=== PATIENT | male | born 1960 | race American Indian/Alaskan Native ===

== ENCOUNTER 2023-08-09 17:36 | Emergency (ER) | payer MEDICAID, SELFPAY ==
[2023-08-09 17:42] VITALS: BP 122/72; PULSE 74; RESP 16; TEMP 36.6; O2SAT 96; BMI 26.7
--- NOTE | 2023-08-09 17:59 | ED_ITS ---
HPI - General Adult General Chief complaint: General Medical Stated complaint: pain in feet and shoulder Time Seen by Provider: 08/09/23 18:17 Source: patient and breakfast supervisor Mode of arrival: ambulatory Limitations: language barrier History of Present Illness HPI narrative: 63 yo male with history of arthritis, IDDM, HTN, HLD here with pain/swelling in bilateral feet, pain in left shoulder pain Seen at [facility] ER 07/31 and given prednisone for 5 days which helped with his symptoms. Has been unable to get hold of his primary care doctor. Denies any injury or trauma. Patient denies any muscle aches, redness, numbness, tingling of the extremities. Patient denies any fevers or chills. Related Data Previous Rx's Medication Instructions Recorded diclofenac sodium 1 % topical gel 4 g topical QID #100 grams 08/09/23 (Voltaren Arthritis Pain) prednisone 20 mg tablet 40 mg (2 x 20 mg) PO DAILY #10 tabs 08/09/23 Allergies Allergy/AdvReac Type Severity Reaction Status Date / Time No Known Allergies Allergy Verified 08/09/23 17:53 Review of Systems Review of Systems: Yes all other systems are reviewed and are negative Constitutional: Constitutional: Reports no additional constitutional complaints, Denies body ache(s), Denies chills, Denies fever(s), Denies headache(s) and Denies weakness Eyes: Eyes: Reports no additional eye complaints and Denies change in vision ENT: Reports system reviewed and no additional complaints, except as documented, Denies dizziness, Denies headache(s), Denies nasal congestion, Denies nasal discharge and Denies neck pain Cardiovascular: Cardiovascular: Reports no additional cardiovascular complaint s, Denies chest pain, Denies leg edema and Denies dyspnea Respiratory: Respiratory: Reports no additional respiratory complaints, Denies cough and Denies dyspnea Gastrointestinal: Gastrointestinal: Reports no additional gastrointestinal complaints, Denies abdominal pain, Denies diarrhea, Denies nausea and Denies vomiting Genitourinary: Genitourinary: Denies urinary incontinence Musculoskeletal: Musculoskeletal: Reports no additional musculoskeletal complaints, Denies back pain, Reports arthralgias, Reports joint swelling, Denies limited range of motion, Denies neck pain, Denies numbness and Denies tingling Integumentary/Breasts: Skin/Breast: Reports system reviewed and no additional complaints, except as docu and Denies rash Neurologic: Reports system reviewed and no additional complaints, except as documented, Denies Abnormal speech present, Denies dizziness, Denies headache(s), Denies numbness, Denies tingling and Denies weakness PMFSH Past Medical History Attestation statement: The following information was validated with the patient. Source: old records reviewed and nursing notes reviewed Social History Social History Advance Directives: No Advance Directives Information Provided: No Physical Exam ED Vital Signs: Vital Signs - 24 hr 08/09/23 17:42 Temperature 98 F Pulse Rate 74 Respiratory Rate 16 Blood Pressure 122/72 Pulse Oximetry 96 Oxygen Delivery Method Room Air BMI result Body Mass Index 26.7 Const General: cooperative, healthy appearing, comfortable and no acute distress Orientation/consciousness: patient oriented x3 Limitations: no limitations HENMT Head: Yes normal to inspection Ears: hearing grossly normal bilaterally General nose exam: Normal external nose present Face and sinus: Yes normal facial exam Mouth: Normal oral and palatal mucosa present Throat: Yes posterior oropharynx normal Eyes General: appearance normal, both eyes and all related structures Pupils: Equal, round and reactive pupils present Neck Neck: Yes normal visual inspection Chest Chest palpation & inspection: normal inspection of the chest Resp Effort & Inspection: normal respiratory effort Auscultation: clear to auscultation bilaterally Cardio Rate: regular rate Rhythm: regular rhythm Peripheral pulses: Peripheral pulses 2+ throughout GI Inspection: Yes normal to inspection Palpation (GI): Soft to palpation and nontender Auscultation: normal bowel sounds Back/Spine/Pelvis Thoracic/Lumbar Spine: thoracic and lumbar spine normal to inspection Skin General skin exam: no rashes or lesions noted Neuro General: patient oriented x3, no focal motor deficits and normal sensation to monofilament Cranial nerves: Yes Equal, round and reactive pupils present Cognition (Neuro): normal cognition Speech: No Abnormal speech present Gait exam (Neuro): Normal gait present Motor exam (neuro): 5/5 motor strength present throughout Extrem Other: Mild swelling noted to b/l ankles with FROM. No erythema/warmth Mild TTP to left shoulder with FROM. No erythema/warmth General: Yes normal to inspection Medical Decision Making Medical Decision Making MDM Narrative: 63 yo male with history of arthritis, IDDM, HTN, HLD here with pain/swelling in bilateral feet, pain in left shoulder pain Seen at [facility] ER 07/31 and given prednisone for 5 days which helped with his symptoms. Has been unable to get hold of his primary care doctor. Denies any injury or trauma. Patient denies any muscle aches, redness, numbness, tingling of the extremities. Patient denies any fevers or chills. Mild swelling noted to b/l ankles with FROM. No erythema/warmth Mild TTP to left shoulder with FROM. No erythema/warmth Likely arthritis flare. Patient given several more days of prednisone but I strongly encouraged him to follow up with primary care doctor for further management of his arthritis. Reviewed worrisome signs and symptoms when to return to the emergency room. Comfortable plan for discharge home. Differential Diagnosis Differential Diagnoses: The differential diagnosis associated with the presentation includes Low concern for fracture, strain, sprain, dislocation with no reports of injury Low concern for septic joint with full range of motion No concern for cellulitis, gout Admission/Observation Consideration of admission/observation: Escalation of care including admission/observation considered No systemic signs or symptoms concerning for infection necessitating labs, further workup with advanced imaging and/or admission Tests considered The following testing was considered but not selected: Patient nontoxic, afebrile, low concern for septic joint requiring lab Prescription Management I considered prescription management with: Pain Medication Chronic Conditions Patient?s care impacted by: Diabetes Discharge Plan Discharge Clinical Impression: Osteoarthritis Patient Disposition: Home, Self-Care Instructions: Osteoarthritis (ED) Additional Instructions: Call your PCP Friday to follow-up. Llame a gerard PCP el para realizar un seguimiento. Prescriptions: New prednisone 20 mg tablet 40 mg PO DAILY Qty: 10 0RF diclofenac sodium [Voltaren Arthritis Pain] 1 % gel 4 g topical QID Qty: 100 0RF Rx Instructions: apply to single knee, ankle, foot; for foot includes sole/toes/top of foot Referrals: Physician,Unknown J [Primary Care Provider] - 1 week Interventions: ED Discharge Assessment Last Done: 08/09/23 18:25 Print Language: Greek
--- OUTSIDE RECORDS SUMMARY | 2023-08-09 18:27 | XMS_ITS | Continuity of Care Document ---
Author Name Unknown Organization [facility] Address [address] [place] [address]- Care Team Providers Care Hose Tender Name Role Phone Manpreet Cohen MD Primary Care Physician Encounter [facility] Date(s): 06/13/20 - 07/13/20 [facility] [address] [place] [address]- [facility] Attending Physician: Maren Chew Admitting Physician: AdmtrMaren Referring Physician: AdmtrMaren Allergies, Adverse Reactions, Alerts Substance Reaction Severity Status NKA Active Immunizations Given and Recorded Vaccine Date Status Refusal Reason tetanus/diphtheria/pertussis, acel(Tdap) 03/26/19 Given pneumococcal 23-valent vaccine 03/26/19 Given Medications atorvastatin 20 mg oral tablet 1 tablet = 20 mg, By Mouth, Daily, Serbian, # 90 tablet, 4 Refills, Maintenance, 06/13/20 14:25:00 EDT, Tablet, [facility], 180, cm, 06/13/20 14:06:00 EDT, Height, 88.9, kg, 07/06/18 20:39:00 EDT, Dry Weight Start Date: 06/13/20 Stop Date: 09/06/21 Status: Ordered folic acid 1 mg oral tablet 1 mg, 1, tablet, By Mouth, Daily, Take daily <LAO>, # 30 tablet, Refills 5, Tot. Refills 5, Maintenance, 03/28/20 14:39:00 EDT, Route to Pharmacy Electronically, [facility],180, cm, 12/01/19 9:06:00 EST, Height, 88.9, kg, 07/06/18... Start Date: 03/28/20 Status: Ordered Freestyle Lite Lancets See Instructions, # 100 each, Refills 5, Tot. Refills 5, Maintenance, Use to test post meal blood sugar 3 times a day Dx: E11.65, 01/06/20 18:39:00 EDT, Compound, 180, cm, 12/01/19 9:06:00 EST, Height, 88.9, kg, 07/06/18 20:39:00 EDT, Dry Weight Start Date: 01/06/20 Stop Date: 07/04/20 Status: Ordered Freestyle Lite Test Strips See Instructions, # 100 each, Refills 11, Tot. Refills 11, Maintenance, Use to test blood sugar after meal 3 times a day Dx: E11.65, 10/28/19 11:35:00 EST, Compound, 180, cm, 10/25/19 14:25:00 EST, Height, 88.9, kg, 07/06/18 20:39:00 EDT, Dry Weight Start Date: 10/28/19 Stop Date: 10/22/20 Status: Ordered insulin glargine 100 u/ml subcutaneous solution = 16 units, Subcutaneous Injection, Daily at bedtime, please label in frisian, # 10 mL, 11 Refills,Maintenance, 06/13/20 14:28:00 EDT, Solution, [facility], please label in frisian, 180, cm, 06/13/20 14:06:00 EDT, Height, 88.9, kg, 09... Start Date: 06/13/20 Status: Ordered Insulin Syringe, BD Ultra-Fine 0.5 cc 31 G x 8 mm (5/16in) See Instructions, # 40 each, Refills 11, Tot. Refills 11, Maintenance, Use to inject insulin once daily Dx: E11.65, 12/22/19 8:59:00 EST, Compound, 180, cm, 12/01/19 9:06:00 EST, Height, 88.9, kg, 07/06/18 20:39:00 EDT, Dry Weight Start Date: 12/22/19 Status: Ordered metFORMIN 1000 mg oral tablet 1 tablet = 1,000 mg, By Mouth, 2 times a day, with meals, Serbian label, dose increase, # 180 tablet, 4 Refills, Maintenance, 06/13/20 14:27:00 EDT[facility], [facility], 06/13/20 14:06:00 EDT, Height, 88.9, kg, 07/06/18 20:39:0... Start Date: 06/13/20 Stop Date: 09/06/21 Status: Ordered methotrexate 2.5 mg oral tablet See Instructions, CONOR 6 TABLETAS CADA SEMANA CADA MIERCOLES, # 24 tablet, 9 Refills, Soft Stop, 01/26/20 9:28:00 EDT[facility], cm, 12/01/19 9:06:00 EST, Height, 88.9, kg, 07/06/18 20:39:00 EDT, Dry Weight Start Date: 01/26/20 Status: Ordered naproxen 500 mg oral tablet 1 tablet = 500 mg, By Mouth, 2 times a day, with food, prn pain, take with food, # 60 tablet, 0 Refills, Maintenance, 06/13/20 14:29:00 EDT, [facility], cm, 06/13/20 14:06:00 EDT, Height, 88.9, kg, 07/06/18 20:39:00 EDT, D... 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
--- OUTSIDE RECORDS SUMMARY | 2023-08-09 18:27 | XMS_ITS | Continuity of Care Document ---
Author Name Unknown Organization [facility] Address [address] [place] [address]- Care Team Providers Care Brim Buster Name Role Phone Noel CHESTER, Manpreet Primary Care Physician [phone] [place] [facility] [place] 12/06[place]20 - 01/10/21 [facility] [address] [place] [address]- Attending Physician: Beka Zapien MD Admitting Physician: Beka Zapien MD Allergies, Adverse Reactions, Alerts Substance Reaction Severity Status NKA Active Immunizations Given and Recorded Vaccine Date Status Refusal Reason tetanus/diphtheria/pertussis, acel(Tdap) 03/26/19 Given pneumococcal 23-valent vaccine 03/26/19 Given Medications atorvastatin 20 mg oral tablet 1 tablet = 20 mg, By Mouth, Daily, Tajik, # 90 tablet, 4 Refills, Maintenance, 06/13/20 14:25:00 EDT, [facility], [facility], 06/13/20 14:06:00 EDT, Height, 88.9, kg, 07/06/18 20:39:00 EDT, Dry Weight Start Date: 06/13/20 Stop Date: 09/06/21 Status: Ordered BD 0.5ML [id number] SYR 634037 31GX5/16 SYRG BD 0.5ML [id number] SYR 111244 31GX5/16 SYRG, See Instructions, # 30 Unknown, 11 Refills, Maintenance, [facility], 180, cm, 06/13/20 14:06:00 EDT, Height Start Date: 12/09/20 Status: Ordered folic acid 1 mg oral tablet 1 mg, 1, tablet, By Mouth, Daily, Take daily <JORDANIAN>, # 30 tablet, Refills 5, Tot. Refills 5, Maintenance, 09/27/20 16:05:00 EST, Route to Pharmacy Electronically, [facility],180, cm, 06/13/20 14:06:00 EDT, Height Start Date: 09/27/20 Status: Ordered Freestyle Lite Lancets See Instructions, [...] meal 3 times a day Dx: E11.65, 11/08/20 16:30:00 EST, Compound, 180, cm, 06/13/20 14:06:00 EDT, Height Start Date: 11/08/20 Stop Date: 11/03/21 Status: Ordered insulin glargine 100 u/ml subcutaneous solution = 20 units, Subcutaneous Injection, Daily at bedtime, please label in welsh, # 10 mL, 11 Refills,Maintenance, 09/12/20 16:20:00 EST, Solution, [facility], please label in welsh, 180, cm, 06/13/20 14:06:00 EDT, Height Start Date: 09/12/20 Status: Ordered Insulin Syringe, BD Ultra-Fine 0.5 cc 31 G x 8 mm (5/16in) See Instructions, # 30 each, Refills 11, Tot. Refills 11, Maintenance, Use to inject insulin once daily Dx: E11.65, 12/11/20 11:21:00 EST, Compound, 180, cm, 06/13/20 14:06:00 EDT, Height Start Date: 12/11/20 Status: Ordered metFORMIN 1000 mg oral tablet 1 tablet = 1,000 mg, By Mouth, 2 times a day, with meals, Tajik label, dose increase, # 180 tablet, 4 Refills, Maintenance, 06/13/20 14:27:00 EDT, Tablet[facility], cm, 06/13/20 14:06:00 EDT, Height, 88.9, kg, 07/06/18 20:39:0... Start Date: 06/13/20 Stop Date: 09/06/21 Status: Ordered methotrexate 2.5 mg oral tablet See Instructions, CONOR 6 TABLETAS CADA SEMANA CADA MIERCOLES, # 24 tablet, 9 Refills, Soft Stop, 11/09/20 19:11:00 EST, [facility] 180, cm, 06/13/20 14:06:00 EDT, Height Start Date: 11/09/20 Status: Ordered naproxen 500 mg oral tablet See Instructions, CONOR 1 TABLETA POR LA BOCA DOS VECES AL CONTRERAS CUANDO SEA NECESARIO PARA EL DOLOR CON COMIDA, # 60 tablet, 0 Refills, Acute, [facility], 180, cm, 06/13/20 14:06:00 EDT, Height Start Date: 12/09/20 Status: Ordered omeprazole 40 mg oral enteric coated capsule 1 capsule = 40 mg, By Mouth, Daily, # 30 capsule, 2 Refills, Maintenance, 08/09/20 11:18:00 EDT, [facility]CCapsule, [facility], cm, 06/13/20 14:06:00 EDT, Height, Dry Weight Start Date: 08/09/20 Status: Ordered omeprazole 40 mg oral enteric coated capsule See Instructions, CONOR 1 CAPSULA POR LA BOCA CADA CONTRERAS, # 30 capsule, 2 Refills, Maintenance, [facility], 180, cm, 06/13/20 14:06:00 EDT, Height Start Date: 10/17/20 Status: Ordered Trulicity Pen 0.75 mg/0.5 mL subcutaneous solution 0.5 mL = 0.75 mg, Subcutaneous Injection, Every week, rotate injection sites, # 2 mL, 5 Refills, Maintenance, 12/11/20 15:58:00 EST, Solution, [facility] Partial fill upon patient request if the prescription is for a schedule II opioi... Start Date: 12/11/20 Status: Ordered Tylenol 8 HR Arthritis Pain 650 mg oral tablet, extended release 2 tablet = 1,300 mg, By Mouth, 2 times a day, PRN Pain , Moderate, # 50 tablet, 1 Refills, Maintenance, 12/13/20 11:44:00 EST, ER Tablet[facility], [facility] fill upon patient requestif the prescription is for a schedule II opioid marvin... Start Date: 12/13/20 Status: Ordered Problem List Condition Effective Dates [...]
--- OUTSIDE RECORDS SUMMARY | 2023-08-09 18:27 | XMS_ITS | Continuity of Care Document ---
Author Name Unknown Organization [facility] Address [address] [place] [address]- Care Team Providers Care Ediscovery Project Manager Name Role Phone Manpreet Cohen MD Primary Care Physician [phone] Encounter [facility] [place] Date(s): 05/08/21 - 06/07/21 [facility] [address] [place] [address]- Allergies, Adverse Reactions, Alerts Substance Reaction Severity Status NKA Active Immunizations Given and Recorded Vaccine Date Status Refusal Reason SARS-CoV-2 (COVID-19) mRNA BNT-162b2 vac 03/03/21 Recorded SARS-CoV-2 (COVID-19) mRNA BNT-162b2 vac 02/11/21 Recorded tetanus/diphtheria/pertussis, acel(Tdap) 03/26/19 Given pneumococcal 23-valent vaccine 03/26/19 Given Medications atorvastatin 20 mg oral tablet 1 tablet = 20 mg, By Mouth, Daily, Romansh, # 90 tablet, 4 Refills, Maintenance, 06/13/20 14:25:00 EDT, Tablet, [facility], [facility], cm, 06/13/20 14:06:00 EDT, Height, 88.9, kg, 07/06/18 20:39:00 EDT, Dry Weight Start Date: 06/13/20 Stop Date: 09/06/21 Status: Ordered BD 0.5ML [id number] SYR [id number] 31GX5/16 SYRG BD 0.5ML [id number] SYR 606714 31GX5/16 SYRG, See Instructions, # 30 Unknown, 11 Refills, Maintenance, [facility], 180, cm, 06/13/20 14:06:00 EDT, Height Start Date: 12/09/20 Status: Ordered folic acid 1 mg oral tablet 1 mg, 1, tablet, By Mouth, Daily, Take daily <INDIAN>, # 90 tablet, Refills 3, Tot. Refills 3, Maintenance, 03/27/21 14:34:00 EDT, Route to Pharmacy Electronically, [facility]180, cm, 03/27/21 14:07:00 EDT, Height Start Date: 03/27/21 Stop Date: 03/22/22 Status: Ordered Freestyle Lite Lancets See Instructions, [...] Strips See Instructions, # 100 each, Refills 5, Tot. Refills 5, Maintenance, Use to test blood sugar aftermeal 3 times a day Dx: E11.65, 11/03/21 16:30:00 EST, Compound, 180, cm, 06/13/20 14:06:00 EDT, Height Start Date: 11/03/21 Stop Date: 05/02/22 Status: Ordered Freestyle Lite Test Strips See Instructions, for 30 days, # 100 each, Refills 11, Tot. Refills 11, Hard Stop 11/03/21 16:30:00EST, Use to test blood sugar after meal 3 times a day Dx: E11.65, 11/08/20 16:30:00 EST, Compound, 180, cm, 06/13/20 14:06:00 EDT, Height Start Date: 11/08/20 Stop Date: 11/03/21 Status: Ordered insulin glargine 100 u/ml subcutaneous solution = 20 units, Subcutaneous Injection, Daily at bedtime, please label in qatari, # 10 mL, 11 Refills,Maintenance, 09/12/20 16:20:00 EST, Solution, [facility]., please label in qatari, 180, cm, 06/13/20 14:06:00 EDT, Height Start [...] Mouth, 2 times a day, with meals, Romansh label, dose increase, # 180 tablet, 4 Refills, Maintenance, 06/13/20 14:27:00 EDT, Tablet, [facility], 180, cm, 06/13/20 14:06:00 EDT, Height, 88.9, kg, 07/06/18 20:39:0... Start Date: 06/13/20 Stop Date: 09/06/21 Status: Ordered methotrexate 2.5 mg oral tablet See Instructions, CONOR 6 TABLETAS CADA SEMANA CADA MIERCOLES, # 24 tablet, 9 Refills, Soft Stop, 11/09/20 19:11:00 EST, [facility]., 180, cm, 06/13/20 14:06:00 EDT, Height Start Date: 11/09/20 Status: Ordered omeprazole 40 mg oral enteric coated capsule See Instructions, CONOR 1 CAPSULA POR LA BOCA CADA CONTRERAS, # 30 capsule, 2 Refills, 03/27/21 14:38:00 EDT, [facility]., 180, cm, 03/27/21 14:07:00 EDT, Height Start Date: 03/27/21 Status: Ordered predniSONE 5 mg oral tablet See Instructions, Take 2 tablets by mouth BID x 7 days, then 2 tabs qam and 1 tab qpm x 7 days, then 1 tab BID x 7 days, then 1 tab daily x 7 days., # 70 tablet, 0 Refills, Maintenance, 02/20/21 9:09:00 EDT, [facility], Label in Spanis... Start Date: 02/20/21 Status: Ordered predniSONE 5 mg oral tablet 1 tablet = 5 mg, By Mouth, Daily, Romansh, # 30 tablet, 0 Refills, Maintenance, 03/27/21 14:34:00 EDT, [facility], Partial fill upon patient request if the prescription is for a schedule II opioid drug., 180, cm, 03/27/21 14:07:00 EDT,... Start Date: 03/27/21 Status: Ordered predniSONE 5 mg oral tablet 1 tablet = 5 mg, By Mouth, Daily, with food or milk, # 30 tablet, 1 Refills, Maintenance, 05/18/21 17:14:00 EDT, [facility]., Partial fill upon patient request if the prescription is for a schedule II opioid drug., 180, cm, 03/27/21 14:... Start Date: 05/18/21 Status: Ordered Trulicity Pen 0.75 mg/0.5 mL subcutaneous solution 0.5 mL = 0.75 mg, Subcutaneous Injection, Every week, rotate injection sites, # 2 mL, 5 Refills, Maintenance, 12/11/20 15:58:00 EST, Solution, [facility], Partial fill upon patient request if the prescription is for a schedule II opioi... Start Date: 12/11/20 Status: Ordered Tylenol 8 HR Arthritis Pain 650 mg oral tablet, extended release 2 tablet = 1,300 mg, By Mouth, 2 times a day, PRN Pain , Moderate, # 50 tablet, 5 Refills, Maintenance, 02/08/21 10:19:00 EDT, ER Tablet, [facility]., Partial fill upon patient requestif the prescription is for a schedule II opioid marvin... Start Date: 02/08/21 Status: Ordered Problem List Condition Effective Dates [...]
--- OUTSIDE RECORDS SUMMARY | 2023-08-09 18:27 | XMS_ITS | Continuity of Care Document ---
Author Name Unknown Organization [facility] Address [address] [place] [id number]- Care Team Providers Care Resume Writer Name Role Phone Manpreet Cohen MD Primary Care Physician Encounter [facility] Date(s): 12/02/19 - 01/07/[address] [address]- [facility] Attending Physician: Juan Daniel Mcfadden MD Admitting Physician: Bogdan CHESTER, Juan Daniel Referring Physician: Bogdan CHESTER, Juan Daniel Allergies, Adverse Reactions, Alerts Substance Reaction Severity Status NKA Active Immunizations Given and Recorded Vaccine Date Status Refusal Reason tetanus/diphtheria/pertussis, acel(Tdap) 03/26/19 Given pneumococcal 23-valent vaccine 03/26/19 Given Medications atorvastatin 20 mg oral tablet 1 tablet = 20 mg, By Mouth, Daily, # 30 tablet, 3 Refills, Maintenance, 10/25/19 15:06:00 EST, Tablet, [facility] 180, cm, 10/25/19 14:25:00 EST, Height, 88.9, kg, 07/06/18 20:39:00 EDT, Dry Weight Start Date: 10/25/19 Status: Ordered Elbow Support Band Elbow Support Band, See Instructions, # 1 each, Refills 0, Tot. Refills 0, Maintenance, Diagnosis: Medial Epicondilitis ICD code: M77. 00, 11/24/19 15:02:00 EST, Compound Start Date: 11/24/19 Status: Ordered folic acid 1 mg oral tablet 1 mg, 1, tablet, By Mouth, Daily, Take daily <ISRAELI>, # 30 tablet, Refills 5, Tot. Refills 5, Maintenance, 10/05/19 15:54:56 EST, Route to Pharmacy Electronically, [id number], [facility], 180, cm, 03/26/19 9... Start Date: 10/05/19 Status: Ordered Freestyle Lite Lancets See Instructions, [...] Injection, Daily at bedtime, please label in mauritanian, # 10 mL, 11 Refills,Maintenance, 03/26/19 9:42:30 EDT, Solution, please label in mauritanian Start Date: 03/26/19 Status: Ordered Insulin Syringe, BD Ultra-Fine 0.5 cc 31 G x 8 mm (5/16in) See Instructions, # 40 each, Refills 11, Tot. Refills 11, Maintenance, Use to inject insulin once daily Dx: E11.65, 12/22/19 8:59:00 EST, Compound, 180, cm, 12/01/19 9:06:00 EST, Height, 88.9, kg, 07/06/18 20:39:00 EDT, Dry Weight Start Date: 12/22/19 Status: Ordered lidocaine-prilocaine 2.5%-2.5% topical cream 1 application, Topically, Once, # 30 Gm, 1 Refills, Soft Stop, 10/25/19 15:11:00 EST, Cream, [facility] 1 application Topically Once, 180, cm, 10/25/19 14:25:00 EST, Height, 88.9, kg, 07/06/18 20:39:00 EDT, Dry Weight Start Date: 10/25/19 Status: Ordered metFORMIN 500 mg oral tablet 1 tablet = 500 mg, By Mouth, 2 times a day, with meals, Swedish, # 60 tablet, 11 Refills, Maintenance, 03/26/19 9:42:59 EDT, Tablet Start Date: 03/26/19 Status: Ordered methotrexate 2.5 mg oral tablet See Instructions, CONOR 6 TABLETAS CADA SEMANA CADA MIERCOLES, # 24 tablet, 3 Refills, Soft Stop, 10/06/19 14:39:08 EST, 180, cm, 03/26/19 9:28:20 EDT, Height, 88.9, kg, 07/06/18 20:39:19 EDT, Dry Weight Start Date: 10/06/19 Status: Ordered naproxen 500 mg oral tablet 1 tablet = 500 mg, By Mouth, 2 times a day, PRN for pain, # 20 tablet, 1 Refills, Maintenance, 05/20/19 10:51:34 EDT, Tablet Start Date: 05/20/19 Status: Ordered naproxen 500 mg oral tablet See Instructions, COONR 1 TABLETA POR LA BOCA DOS VECES AL CONTRERAS CUANDO SEA NECESARIO PARA EL DOLOR, # 20 tablet, 1 Refills, Soft Stop, 10/06/19 14:39:00 EST, 180, cm, 03/26/19 9:28:20 EDT, Height, 88.9, kg, 07/06/18 20:39:19 EDT, Dry Weight Start Date: 10/06/19 Status: Ordered naproxen 500 mg oral tablet 1 tablet = 500 mg, By Mouth, 2 times a day, PRN for pain, # 20 tablet, 1 Refills, Maintenance, 01/13/19 16:27:29 EDT, Tablet, resent from rx not recieevd from this morning Start Date: 01/13/19 Status: Ordered omeprazole 40 mg oral enteric coated capsule 1 capsule = 40 mg, By Mouth, Daily, # 30 capsule, 2 Refills, Maintenance, 11/01/19 11:54:00 EST, ECCapsule, [facility] 180, cm, 10/25/19 14:25:00 EST, Height, 88.9, kg, 07/06/18 20:39:00 EDT, Dry Weight Start Date: 11/01/19 Status: Ordered predniSONE 5 mg oral tablet 1 tablet = 5 mg, By Mouth, Daily, instructions in mauritanian, # 30 tablet, 0 Refills, Maintenance, 09/13/19 7:20:29 EST, Tablet Start Date: 09/13/19 Status: Ordered Right Elbow Band Right Elbow Band, See Instructions, # 1 each, Refills 0, Tot. Refills 0, Maintenance, Right Elbow Band to be utilized daily, 12/01/19 10:49:00 EST, Compound Start Date: 12/01/19 Status: Ordered Right Elbow Band Right Elbow Band, See Instructions, # 1 each, Refills 0, Tot. Refills 0, Maintenance, Right Elbow Band to be utilized daily Dx: Epicondylitis M77.10, 12/01/19 10:52:00 EST, Compound Start Date: 12/01/19 Status: Ordered Problem List Condition Effective Dates [...]
--- OUTSIDE RECORDS SUMMARY | 2023-08-09 18:27 | XMS_ITS | Continuity of Care Document ---
Author Name Unknown Organization [facility] ter Address [address] [place] [address]- Care Team Providers Care Mechanical Systems Control Engineer Name Role Phone Manpreet Cohen MD Primary Care Physician [phone] Encounter [facility] Date(s): 12/01/19 - 12/01/[address] [address]- [facility] Attending Physician: Not on Staff, Attending MD Allergies, Adverse Reactions, Alerts Substance Reaction Severity Status NKA Active Immunizations Given and Recorded Vaccine Date Status Refusal Reason tetanus/diphtheria/pertussis, acel(Tdap) 03/26/19 Given pneumococcal 23-valent vaccine 03/26/19 Given Medications atorvastatin 20 mg oral tablet 1 tablet = 20 mg, By Mouth, Daily, # 30 tablet, 3 Refills, Maintenance, 10/25/19 15:06:00 EST, Tablet, [facility] 180, cm, 10/25/19 14:25:00 EST, Height, [...] 1, tablet, By Mouth, Daily, Take daily <FAROESE>, # 30 tablet, Refills 5, Tot. Refills 5, Maintenance, 10/05/19 15:54:56 EST, Route to Pharmacy Electronically, [id number], [facility] 180, cm, 03/26/19 9... Start Date: 10/05/19 Status: Ordered Freestyle Lite Lancets See Instructions, # 200 each, Refills 11, Tot. Refills 11, Maintenance, Use to test post meal bloodsugar 3 times a day Dx: E11, 12/15/18 15:02:46 EST, Compound Start Date: 12/15/18 Stop Date: 12/10/19 Status: Ordered Freestyle Lite Test Strips See Instructions, # 100 each, Refills 11, Tot. Refills 11, Maintenance, Use to test blood sugar after meal 3 times a day Dx: E11, 10/28/19 11:35:00 EST, Compound, 180, cm, 10/25/19 14:25:00 EST, Height, 88.9, kg, 07/06/18 20:39:00 EDT, Dry Weight Start Date: 10/28/19 Stop Date: 10/22/20 Status: Ordered insulin glargine 100 u/ml subcutaneous solution = 16 units, Subcutaneous Injection, Daily at bedtime, please label in central african, # 10 mL, 11 Refills,Maintenance, 03/26/19 9:42:30 EDT, Solution, please label in central african Start Date: 03/26/19 Status: Ordered Insulin Syringe, BD Ultra-Fine 0.5 cc 31 G x 8 mm (5/16in) See Instructions, # 1 box, Refills 11, Tot. Refills 11, Maintenance, Use to inject insulin once daily Dx: E11, 12/15/18 15:05:08 EST, Compound Start Date: 12/15/18 Status: Ordered lidocaine-prilocaine 2.5%-2.5% topical cream 1 application, Topically, Once, # 30 Gm, 1 Refills, Soft Stop, 10/25/19 15:11:00 EST, Cream, [facility] 1 application Topically Once, 180, cm, 10/25/19 14:25:00 EST, Height, 88.9, kg, 07/06/18 20:39:00 EDT, Dry Weight Start Date: 10/25/19 Status: Ordered metFORMIN 500 mg oral tablet 1 tablet = 500 mg, By Mouth, 2 times a day, with meals, Bulgarian, # 60 tablet, 11 Refills, Maintenance, 03/26/19 [...] 2 Refills, Maintenance, 11/01/19 11:54:00 EST, ECCapsule, [facility] 180, cm, 10/25/19 14:25:00 EST, Height, 88.9, kg, 07/06/18 20:39:00 EDT, Dry Weight Start Date: 11/01/19 Status: Ordered predniSONE 5 mg oral tablet 1 tablet = 5 mg, By Mouth, Daily, instructions in central african, # 30 tablet, 0 Refills, Maintenance, 09/13/19 [...]
--- OUTSIDE RECORDS SUMMARY | 2023-08-09 18:27 | XMS_ITS | Continuity of Care Document ---
Author Name Unknown Organization [facility] Address [address] [place] [address]- Care Team Providers Care Digital Media Producer Name Role Phone Manpreet Cohen MD Primary Care Physician [phone] Encounter [facility] Date(s): 03/27/21 - 04/26/21 [facility] [address] [place] [id number] Attending Physician: Maren Chew Admitting Physician: AdmtrMaren Referring Physician: Admtr, Maren Allergies, Adverse Reactions, Alerts Substance Reaction Severity Status NKA Active Immunizations Given and Recorded Vaccine Date Status Refusal Reason SARS-CoV-2 (COVID-19) mRNA BNT-162b2 vac 03/03/21 Recorded SARS-CoV-2 (COVID-19) mRNA BNT-162b2 vac 02/11/21 Recorded tetanus/diphtheria/pertussis, acel(Tdap) 03/26/19 Given pneumococcal 23-valent vaccine 03/26/19 Given Medications atorvastatin 20 mg oral tablet 1 tablet = 20 mg, By Mouth, Daily, Bruneian, # 90 tablet, 4 Refills, Maintenance, 06/13/20 14:25:00 EDT, [facility], cm, 06/13/20 14:06:00 EDT, Height, 88.9, kg, 07/06/18 20:39:00 EDT, Dry Weight Start Date: 06/13/20 Stop Date: 09/06/21 Status: Ordered BD 0.5ML [id number] SYR 801010 31GX5/16 SYRG BD 0.5ML [id number] SYR 361531 31GX5/16 SYRG, See Instructions, # 30 Unknown, 11 Refills, Maintenance, [facility]AS, 180, cm, 06/13/20 14:06:00 EDT, Height Start Date: 12/09/20 Status: Ordered folic acid 1 mg oral tablet 1 mg, 1, tablet, By Mouth, Daily, Take daily <FAROESE>, # 90 tablet, Refills 3, Tot. Refills 3, Maintenance, 03/27/21 14:34:00 EDT, Route to Pharmacy Electronically, [facility],180, cm, 03/27/21 14:07:00 EDT, Height Start Date: [...] Injection, Daily at bedtime, please label in macanese, # 10 mL, 11 Refills,Maintenance, 09/12/20 16:20:00 EST, Solution, [facility] please label in macanese, 180, cm, 06/13/20 14:06:00 EDT, Height Start [...] Mouth, 2 times a day, with meals, Bruneian label, dose increase, # 180 tablet, 4 Refills, Maintenance, 06/13/20 14:27:00 EDT, Tablet, [facility]., 180, cm, 06/13/20 14:06:00 EDT, Height, 88.9, kg, 07/06/18 20:39:0... Start Date: 06/13/20 Stop Date: 09/06/21 Status: Ordered methotrexate 2.5 mg oral tablet See Instructions, CONOR 6 TABLETAS CADA SEMANA CADA MIERCOLES, # 24 tablet, 9 Refills, Soft Stop, 11/09/20 19:11:00 EST, [facility] 180, cm, 06/13/20 14:06:00 EDT, Height Start Date: 11/09/20 Status: Ordered omeprazole 40 mg oral enteric coated capsule See Instructions, CONOR 1 CAPSULA POR LA BOCA CADA CONTRERAS, # 30 capsule, 2 Refills, 03/27/21 14:38:00 EDT, [facility]., 180, cm, 03/27/21 14:07:00 EDT, Height Start Date: 03/27/21 Status: Ordered predniSONE 5 mg oral tablet See Instructions, Take 2 tablets by mouth BID x 7 days, then 2 tabs qam and 1 tab qpm x 7 days, then 1 tab BID x 7 days, then 1 tab daily x 7 days., # 70 tablet, 0 Refills, Maintenance, 02/20/21 9:09:00 EDT, [facility], Label in Spanis... Start Date: 02/20/21 Status: Ordered predniSONE 5 mg oral tablet 1 tablet = 5 mg, By Mouth, Daily, Bruneian, # 30 tablet, 0 Refills, Maintenance, 03/27/21 14:34:00 EDT, [facility], Partial fill upon patient request if the prescription is for a schedule II opioid drug., 180, cm, 03/27/21 14:07:00 EDT,... Start Date: 03/27/21 Status: Ordered Trulicity Pen 0.75 mg/0.5 mL subcutaneous solution 0.5 mL = 0.75 mg, Subcutaneous Injection, Every week, rotate injection sites, # 2 mL, 5 Refills, Maintenance, 12/11/20 15:58:00 EST, Solution, [facility], Partial fill upon patient request if the prescription is for a schedule II opioi... Start Date: 12/11/20 Status: Ordered Tylenol 8 HR Arthritis Pain 650 mg oral tablet, extended release 2 tablet = 1,300 mg, By Mouth, 2 times a day, PRN Pain , Moderate, # 50 tablet, 5 Refills, Maintenance, 02/08/21 10:19:00 EDT, ER Tablet, [facility], Partial fill upon patient requestif the prescription [...]
--- OUTSIDE RECORDS SUMMARY | 2023-08-09 18:27 | XMS_ITS | Continuity of Care Document ---
Author Name Unknown Organization [facility] Address [address] [place] [address]- Care Team Providers Care Multifocal Lens Assembler Name Role Phone Manpreet Cohen MD Primary Care Physician Encounter [facility] Date(s): 08/14/21 - 09/13/21 [facility] [address] [place] [address]- Allergies, Adverse Reactions, Alerts Substance Reaction Severity Status NKA Active Immunizations Given and Recorded Vaccine Date Status Refusal Reason SARS-CoV-2 (COVID-19) mRNA BNT-162b2 vac 03/03/21 Recorded SARS-CoV-2 (COVID-19) mRNA BNT-162b2 vac 02/11/21 Recorded tetanus/diphtheria/pertussis, acel(Tdap) 03/26/19 Given pneumococcal 23-valent vaccine 03/26/19 Given Medications 8 HOUR ARTHRITIS PAIN RELIE 650 Tablet 8 HOUR ARTHRITIS PAIN RELIE 650 Tablet, See Instructions, # 50 tablet, 5 Refills, CONOR 2 TABLETAS POR LA BOCA DOS VECES AL CONTRERAS CUANDO SEA NECESARIO PARA EL DOLOR MODERADO, 180, cm, 06/21/21 14:32:00EDT, Height Start Date: 06/28/21 Status: Ordered atorvastatin 20 mg oral tablet 1 tablet = 20 mg, By Mouth, Daily, Bermudian, # 90 tablet, 4 Refills, Maintenance, 06/13/20 14:25:00 EDT, [facility], [facility], [facility], cm, 06/13/20 14:06:00 EDT, Height, 88.9, kg, 07/06/18 20:39:00 EDT, Dry Weight Start Date: 06/13/20 Stop Date: 09/06/21 Status: Ordered BD 0.5ML [id number] SYR 762460 31GX5/16 SYRG BD 0.5ML [id number] SYR 880115 31GX5/16 SYRG, See Instructions, # 30 Unknown, 11 Refills, Maintenance, [facility], 180, cm, 06/13/20 14:06:00 EDT, Height Start Date: 12/09/20 Status: Ordered folic acid 1 mg oral tablet 1 mg, 1, tablet, By Mouth, Daily, Take daily <ARABIC>, # 90 tablet, Refills 3, Tot. Refills 3, Maintenance, 03/27/21 14:34:00 EDT, Route to Pharmacy Electronically, [facility],180, cm, 03/27/21 14:07:00 EDT, Height Start Date: [...] Injection, Daily at bedtime, please label in croatian, # 10 mL, 11 Refills,Maintenance, 09/12/20 16:20:00 EST, Solution, [facility] please label in croatian, 180, cm, 06/13/20 14:06:00 EDT, Height Start [...] Mouth, 2 times a day, with meals, Bermudian label, dose increase, # 180 tablet, 4 Refills, Maintenance, 06/21/21 14:58:00 EDT, Tablet, [facility], 180, cm, 06/21/21 14:32:00 EDT, Height Start Date: 06/21/21 Stop Date: 09/14/22 Status: Ordered methotrexate 2.5 mg oral tablet See Instructions, CONOR 6 TABLETAS CADA SEMANA CADA MIERCOLES, # 24 tablet, 9 Refills, Soft Stop, 11/09/20 19:11:00 EST, [facility] 180, cm, 06/13/20 14:06:00 EDT, Height Start Date: 11/09/20 Status: Ordered naproxen 500 mg oral tablet See Instructions, CONOR 1 TABLETA POR LA BOCA DOS VECES AL CONTRERAS CUANDO SEA NECESARIO PARA EL DOLOR CON COMIDA, # 60 tablet, 0 Refills, [facility], 180, cm, 06/21/21 14:32:00 EDT, Height Start Date: 07/04/21 Status: Ordered omeprazole 40 mg oral enteric coated capsule See Instructions, CONOR 1 CAPSULA POR LA BOCA CADA CONTRERAS, # 30 capsule, 2 Refills, 06/26/21 6:16:00 EDT, [facility] 180, cm, 06/21/21 14:32:00 EDT, Height Start Date: 06/26/21 Status: Ordered predniSONE 5 mg oral tablet See Instructions, Take 2 tablets by mouth BID x 7 days, then 2 tabs qam and 1 tab qpm x 7 days, then 1 tab BID x 7 days, then 1 tab daily x 7 days., # 70 tablet, 0 Refills, Maintenance, 02/20/21 9:09:00 EDT, [facility], Label in Spanis... Start Date: 02/20/21 Status: Ordered predniSONE 5 mg oral tablet 1 tablet = 5 mg, By Mouth, Daily, Bermudian, # 30 tablet, 0 Refills, Maintenance, 03/27/21 14:34:00 EDT, [facility], Partial fill upon patient request if the prescription is for a schedule II opioid drug., 180, cm, 03/27/21 14:07:00 EDT,... Start Date: 03/27/21 Status: Ordered predniSONE 5 mg oral tablet 1 tablet = 5 mg, By Mouth, Daily, with food or milk, # 30 tablet, 1 Refills, Maintenance, 05/18/21 17:14:00 EDT, [facility], Partial fill upon patient request if the prescription is for a schedule II opioid drug., 180, cm, 03/27/21 14:... Start Date: 05/18/21 Status: Ordered Trulicity Pen 1.5 mg/0.5 mL subcutaneous solution = 1.5 mg, Subcutaneous Infusion, Every 7 days, # 4 each, 11 Refills, Maintenance, 06/21/21 14:59:00EDT, [facility], Partial fill upon patient request if the prescription is for a schedule II opioid drug., 180, cm, 06/21/21 14:32:00 ED... Start Date: 06/21/21 Stop Date: 06/16/22 Status: Ordered Tylenol 8 HR Arthritis Pain 650 mg oral tablet, extended release 2 tablet = 1,300 mg, By Mouth, 2 times a day, PRN Pain , Moderate, # 50 tablet, 5 Refills, Maintenance, 02/08/21 10:19:00 EDT, ER Tablet, [facility], Partial fill upon patient requestif the prescription [...]
--- OUTSIDE RECORDS SUMMARY | 2023-08-09 18:27 | XMS_ITS | Continuity of Care Document ---
Author Name Unknown Organization [facility] Address [address] [place] [address]- Care Team Providers Care Ski Binding Fitter And Repairer Name Role Phone Guanakito CHESTER, Negro Fernández Primary Care Physician Encounter [facility] Date(s): 11/22/21 - 12/22/21 [facility] [address] [place], [place] [address] Allergies, Adverse Reactions, Alerts No Known Allergies Immunizations Given and Recorded Vaccine Date Status Refusal Reason SARS-CoV-2 (COVID-19) mRNA BNT-162b2 vac 11/14/21 Given SARS-CoV-2 (COVID-19) mRNA BNT-162b2 vac 03/03/21 Recorded [...] tablet = 20 mg, By Mouth, Daily, Croatian, # 90 tablet, 4 Refills, Maintenance, 11/22/21 10:42:00 EST, Tablet, [facility], 180, cm, 08/06/21 13:35:00 EDT, Height Start Date: 11/22/21 Stop Date: 02/15/23 Status: Ordered BD 0.5ML [id number] SYR 426525 31GX5/16 SYRG BD 0.5ML 10Cs2QG SYR 635627 31GX5/16 SYRG, See Instructions, # 30 Unknown, 11 Refills, Maintenance, [facility], 180, cm, 06/13/20 14:06:00 EDT, Height Start Date: 12/09/20 Status: Ordered folic acid 1 mg oral tablet 1 mg, 1, tablet, By Mouth, Daily, Take daily <GEORGIAN>, # 90 tablet, Refills 3, Tot. Refills 3, Maintenance, 03/27/21 14:34:00 EDT, Route to Pharmacy Electronically, [facility],180, cm, 03/27/21 14:07:00 EDT, Height Start Date: 03/27/21 Stop Date: 03/22/22 Status: Ordered Freestyle Lite Lancets See Instructions, # 100 each, Refills 5, Tot. Refills 5, Maintenance, Use to test post meal blood sugar 3 times a day Dx: E11.65, 11/27/21 10:14:00 EST, Compound, 180, cm, 11/27/21 9:55:00 EST, Height Start Date: 11/27/21 Stop Date: 05/26/22 Status: Ordered Freestyle Lite Test Strips See Instructions, # 100 each, Refills 5, Tot. Refills 5, Maintenance, Use to test blood sugar aftermeal 3 times a day Dx: E11.65, 11/27/21 10:14:00 EST, Compound, 180, cm, 11/27/21 9:55:00 EST, Height Start Date: 11/27/21 Stop Date: 05/26/22 Status: Ordered FREESTYLE LITE TEST STRIPS Strip FREESTYLE LITE TEST STRIPS Strip, See Instructions, # 100 Unknown, 11 Refills, [facility] MCKAY INDICADO PARA CHEQUEAR LA AZUCAR DE LA CARLEE CARLITOS VECES AL CONTRERAS DESPUES DE LAS COMIDAS, 180, cm, 08/06/21 13:35:00 EDT, Height Start Date: 09/25/21 Status: Ordered insulin glargine 100 u/ml subcutaneous solution = 20 units, Subcutaneous Injection, Daily at bedtime, please label in honduran, # 10 mL, 11 Refills,Maintenance, 09/12/20 16:20:00 EST, Solution, [facility] please label in honduran, 180, cm, 06/13/20 14:06:00 EDT, Height Start Date: 09/12/20 Status: Ordered Insulin Syringe, BD Ultra-Fine 0.5 cc 31 G x 8 mm (5/16in) See Instructions, # 30 each, Refills 11, Tot. Refills 11, Maintenance, Use to inject insulin once daily Dx: E11.65, 11/27/21 10:14:00 EST, Compound, 180, cm, 11/27/21 9:55:00 EST, Height Start Date: 11/27/21 Status: Ordered Lantus 100 u/ml subcutaneous solution See Instructions, INYECTAR 20 UNIDADES CADA CONTRERAS A LA HORA DE DORMIR, # 10 mL, 11 Refills, [facility], 180, cm, 08/06/21 13:35:00 EDT, Height Start Date: 09/25/21 Status: Ordered metFORMIN 1000 mg oral tablet 1 tablet = 1,000 mg, By Mouth, 2 times a day, with meals, Croatian label, dose increase, # 180 tablet, 4 Refills, Maintenance, 06/21/21 14:58:00 EDT, Tablet, [facility] 180, cm, 06/21/21 14:32:00 EDT, Height Start Date: 06/21/21 Stop Date: 09/14/22 Status: Ordered methotrexate 2.5 mg oral tablet See Instructions, CONOR 6 TABLETAS CADA SEMANA CADA MIERCOLES, # 24 tablet, 9 Refills, Soft Stop, 11/09/20 19:11:00 EST, [facility] 180, cm, 06/13/20 14:06:00 EDT, Height Start Date: 11/09/20 Status: Ordered naproxen 500 mg oral tablet See Instructions, CONOR 1 TABLETA POR LA BOCA DOS VECES AL CONTRERAS CUANDO SEA NECESARIO PARA EL DOLOR CON COMIDA, # 60 tablet, 0 Refills, Maintenance, 11/27/21 10:13:00 EST, [facility], cm, 11/27/21 9:55:00 EST, Height Start Date: 11/27/21 Status: Ordered omeprazole 40 mg oral enteric coated capsule See Instructions, CONOR 1 CAPSULA POR LA BOCA CADA CONTRERAS, # 30 capsule, 2 Refills, 11/27/21 13:59:00 EST, [facility] 180, cm, 11/27/21 9:55:00 EST, Height Start Date: 11/27/21 Status: Ordered predniSONE 5 mg oral tablet See Instructions, Take 2 tablets by mouth BID x 7 days, then 2 tabs qam and 1 tab qpm x 7 days, then 1 tab BID x 7 days, then 1 tab daily x 7 days., # 70 tablet, 0 Refills, Maintenance, 02/20/21 9:09:00 EDT, [facility], Label in Spanis... Start Date: 02/20/21 Status: Ordered predniSONE 5 mg oral tablet 1 tablet = 5 mg, By Mouth, Daily, Croatian, # 10 tablet, 0 Refills, Maintenance, 11/23/21 14:27:00 EST, [facility], Partial fill upon patient request if the prescription is for a schedule II opioid drug., 180, cm, 08/06/21 13:35:00 EDT,... Start Date: 11/23/21 Status: Ordered predniSONE 5 mg oral tablet 1 tablet = 5 mg, By Mouth, Daily, with food or milk, # 30 tablet, 1 Refills, Maintenance, 05/18/21 17:14:00 EDT, [facility], Partial fill upon patient request if the prescription is for a schedule II opioid drug., 180, cm, 03/27/21 14:... Start Date: 05/18/21 Status: Ordered Trulicity Pen 1.5 mg/0.5 mL subcutaneous solution = 1.5 mg, Subcutaneous Infusion, Every 7 days, # 4 each, 11 Refills, Maintenance, 06/21/21 14:59:00EDT, [facility], Partial fill upon patient request if the prescription is for a schedule II opioid drug., 180, cm, 06/21/21 14:32:00 ED... Start Date: 06/21/21 Stop Date: 06/16/22 Status: Ordered Tylenol 8 HR Arthritis Pain 650 mg oral tablet, extended release 1 tablet = 650 mg, By Mouth, Every 8 hours, PRN Pain , Moderate, # 24 tablet, 0 Refills, Maintenance, 12/22/21 0:52:00 EST, ER Tablet, [facility], Partial fill upon patient request ifthe prescription is for a schedule II opioid drug.,... Start Date: 12/22/21 Stop Date: 01/05/22 Status: Ordered Problem List Condition Effective Dates [...]
--- OUTSIDE RECORDS SUMMARY | 2023-08-09 18:27 | XMS_ITS | Continuity of Care Document ---
Author Name Unknown Organization [facility] Address [address] [place] [address]- Care Team Providers Care Performance Test Engineer Name Role Phone Manpreet Cohen MD Primary Care Physician [phone] Encounter [facility] [place] Date(s): 12/11/20 - 01/10/21 [facility] [address], [place] [address] Attending Physician: Maren Chew Admitting Physician: AdmMaren garcia Referring Physician: AdmtrMaren Allergies, Adverse Reactions, Alerts Substance Reaction Severity Status NKA Active Immunizations Given and Recorded Vaccine Date Status Refusal Reason tetanus/diphtheria/pertussis, acel(Tdap) 03/26/19 Given pneumococcal 23-valent vaccine 03/26/19 Given Medications atorvastatin 20 mg oral tablet 1 tablet = 20 mg, By Mouth, Daily, Tanzanian, # 90 tablet, 4 Refills, Maintenance, 06/13/20 14:25:00 EDT, [facility], [facility], cm, 06/13/20 14:06:00 EDT, Height, 88.9, kg, 07/06/18 20:39:00 EDT, Dry Weight Start Date: 06/13/20 Stop Date: 09/06/21 Status: Ordered BD 0.5ML [id number] SYR 853919 31GX5/16 SYRG BD 0.5ML [id number] SYR 493072 31GX5/16 SYRG, See Instructions, # 30 Unknown, 11 Refills, Maintenance, [facility] CADA CONTRERAS, 180, cm, 06/13/20 14:06:00 EDT, Height Start Date: 12/09/20 Status: Ordered folic acid 1 mg oral tablet 1 mg, 1, tablet, By Mouth, Daily, Take daily <LAO>, # 30 tablet, Refills 5, Tot. Refills 5, Maintenance, 09/27/20 16:05:00 EST, Route to Pharmacy Electronically, [facility],180, cm, 06/13/20 14:06:00 EDT, Height Start [...] Injection, Daily at bedtime, please label in kiswahili, # 10 mL, 11 Refills,Maintenance, 09/12/20 16:20:00 EST, Solution, [facility], please label in kiswahili, 180, cm, 06/13/20 14:06:00 EDT, Height Start Date: 09/12/20 Status: Ordered Insulin Syringe, BD Ultra-Fine 0.5 cc 31 G x 8 mm (516in) See Instructions, # 30 each, Refills 11, Tot. Refills 11, Maintenance, Use to inject insulin once daily Dx: E11.65, 12/11/20 11:21:00 EST, Compound, 180, cm, 06/13/20 14:06:00 EDT, Height Start Date: 12/11/20 Status: Ordered metFORMIN 1000 mg oral tablet 1 tablet = 1,000 mg, By Mouth, 2 times a day, with meals, Tanzanian label, dose increase, # 180 tablet, 4 Refills, Maintenance, 06/13/20 14:27:00 EDT, [facility], cm, 06/13/20 14:06:00 EDT, Height, 88.9, kg, 07/06/18 20:39:0... Start Date: 06/13/20 Stop Date: 09/06/21 Status: Ordered methotrexate 2.5 mg oral tablet See Instructions, CONOR 6 TABLETAS CADA SEMANA CADA MIERCOLES, # 24 tablet, 9 Refills, Soft Stop, 11/09/20 19:11:00 EST, [facility] 180, cm, 06/13/20 14:06:00 EDT, Height Start Date: 11/09/20 Status: Ordered naproxen 500 mg oral tablet See Instructions, CONOR 1 TABLETA POR LA BOCA DOS VECES AL CONTRERAS CUANDO SEA NECESARIO PARA EL DOLOR CON COMIDA, # 60 tablet, 0 Refills, Acute, [facility], 180, cm, 06/13/20 14:06:00 EDT, Height Start Date: 12/09/20 Status: Ordered omeprazole 40 mg oral enteric coated capsule 1 capsule = 40 mg, By Mouth, Daily, # 30 capsule, 2 Refills, Maintenance, 08/09/20 11:18:00 EDT, ECCapsule, [facility] 180, cm, 06/13/20 14:06:00 EDT, Height, Dry Weight Start Date: 08/09/20 Status: Ordered omeprazole 40 mg oral enteric coated capsule See Instructions, CONOR 1 CAPSULA POR LA BOCA CADA CONTRERAS, # 30 capsule, 2 Refills, Maintenance, [facility], [facility], cm, 06/13/20 14:06:00 EDT, Height Start Date: 10/17/20 Status: Ordered Trulicity Pen 0.75 mg/0.5 mL subcutaneous solution 0.5 mL = 0.75 mg, Subcutaneous Injection, Every week, rotate injection sites, # 2 mL, 5 Refills, Maintenance, 12/11/20 15:58:00 EST, Solution, [facility] Partial fill upon patient request if the prescription is for a schedule II opioi... Start Date: 12/11/20 Status: Ordered Tylenol 8 HR Arthritis Pain 650 mg oral tablet, extended release 2 tablet = 1,300 mg, By Mouth, 2 times a day, PRN Pain , Moderate, # 50 tablet, 1 Refills, Maintenance, 12/13/20 11:44:00 EST, ER Tablet, [facility], Partial fill upon patient requestif the [...]
--- OUTSIDE RECORDS SUMMARY | 2023-08-09 18:27 | XMS_ITS | Continuity of Care Document ---
Author Name Unknown Organization [facility] Address [address] [place] [address]- Care Team Providers Care Table Operator Name Role Phone Manpreet Cohen MD Primary Care Physician [phone] [place] [facility] 10/25/[place] - 11/04/19 [facility] [address] [place] [address]- [facility] Attending Physician: Maren Chew Admitting Physician: AdmMaren garcia Referring Physician: AdmtrMaren Allergies, Adverse Reactions, Alerts Substance Reaction Severity Status NKA Active Immunizations Given and Recorded Vaccine Date Status Refusal Reason tetanus/diphtheria/pertussis, acel(Tdap) 03/26/19 Given pneumococcal 23-valent vaccine 03/26/19 Given Medications atorvastatin 20 mg oral tablet 1 tablet = 20 mg, By Mouth, Daily, # 30 tablet, 3 Refills, Maintenance, 10/25/19 15:06:00 EST, Tablet, [facility], 180, cm, 10/25/19 14:25:00 EST, Height, 88.9, kg, 07/06/18 20:39:00 EDT, Dry Weight Start Date: 10/25/19 Status: Ordered folic acid 1 mg oral tablet 1 mg, 1, tablet, By Mouth, Daily, Take daily <BAHAMIAN>, # 30 tablet, Refills 5, Tot. Refills 5, Maintenance, 10/05/19 15:54:56 EST, Route to Pharmacy Electronically, [id number], [facility], 180, cm, 03/26/19 9... Start Date: 10/05/19 Status: Ordered Freestyle Lite Lancets See Instructions, # 200 each, Refills 11, Tot. Refills 11, Maintenance, Use to test post meal bloodsugar 3 times a day Dx: , 12/15/18 15:02:46 EST, Compound Start Date: 12/15/18 Stop Date: 12/10/19 Status: Ordered Freestyle Lite Test Strips See Instructions, # 100 each, Refills 11, Tot. Refills 11, Maintenance, Use to test blood sugar after meal 3 times a day Dx: , 10/28/19 11:35:00 EST, Compound, 180, cm, 10/25/19 14:25:00 EST, Height, 88.9, kg, 07/06/18 20:39:00 EDT, Dry Weight Start Date: 10/28/19 Stop Date: 10/22/20 Status: Ordered insulin glargine 100 u/ml subcutaneous solution = 16 units, Subcutaneous Injection, Daily at bedtime, please label in romanian, # 10 mL, 11 Refills,Maintenance, 03/26/19 9:42:30 EDT, Solution, please label in romanian Start Date: 03/26/19 Status: Ordered Insulin Syringe, BD Ultra-Fine 0.5 cc 31 G x 8 mm (5/16in) See Instructions, # 1 box, Refills 11, Tot. Refills 11, Maintenance, Use to inject insulin once daily Dx: , 12/15/18 15:05:08 EST, Compound Start Date: 12/15/18 Status: Ordered lidocaine-prilocaine 2.5%-2.5% topical cream 1 application, Topically, Once, # 30 Gm, 1 Refills, Soft Stop, 10/25/19 15:11:00 EST, Cream, [facility], 1 application Topically Once, 180, cm, 10/25/19 14:25:00 EST, Height, 88.9, kg, 07/06/18 20:39:00 EDT, Dry Weight Start Date: 10/25/19 Status: Ordered metFORMIN 500 mg oral tablet 1 tablet = 500 mg, By Mouth, 2 times a day, with meals, Mohawk, # 60 tablet, 11 Refills, Maintenance, 03/26/19 [...] 2 Refills, Maintenance, 11/01/19 11:54:00 EST, ECCapsule, [facility] 180, cm, 10/25/19 14:25:00 EST, Height, 88.9, kg, 07/06/18 20:39:00 EDT, Dry Weight Start Date: 11/01/19 Status: Ordered predniSONE 5 mg oral tablet 1 tablet = 5 mg, By Mouth, Daily, instructions in romanian, # 30 tablet, 0 Refills, Maintenance, 09/13/19 7:20:29 EST, Tablet Start Date: 09/13/19 Status: Ordered Problem List Condition Effective Dates [...]
--- OUTSIDE RECORDS SUMMARY | 2023-08-09 18:27 | XMS_ITS | Continuity of Care Document ---
Author Name Unknown Organization [facility] Address [address] [place] [address]- Care Team Providers Care Cleaning Machine Operator Name Role Phone Manpreet Cohen MD Primary Care Physician [place] [facility] [place] 02[place] 03/21/21 [facility] [address] [place] [address]- Allergies, Adverse Reactions, Alerts Substance Reaction Severity Status NKA Active Immunizations Given and Recorded Vaccine Date Status Refusal Reason tetanus/diphtheria/pertussis, acel(Tdap) 03/26/19 Given pneumococcal 23-valent vaccine 03/26/19 Given Medications atorvastatin 20 mg oral tablet 1 tablet = 20 mg, By Mouth, Daily, Montserratian, # 90 tablet, 4 Refills, Maintenance, 06/13/20 14:25:00 EDT, Tablet, [facility], 180, cm, 06/13/20 14:06:00 EDT, Height, 88.9, kg, 07/06/18 20:39:00 EDT, Dry Weight Start Date: 06/13/20 Stop Date: 09/06/21 Status: Ordered BD 0.5ML 44Nw9TH SYR 328570 31GX5/16 SYRG BD 0.5ML [id number] SYR 215976 31GX5/16 SYRG, See Instructions, # 30 Unknown, 11 Refills, Maintenance, [facility], 180, cm, 06/13/20 14:06:00 EDT, Height Start Date: 12/09/20 Status: Ordered folic acid 1 mg oral tablet 1 mg, 1, tablet, By Mouth, Daily, Take daily <HUNGARIAN>, # 30 tablet, Refills 5, Tot. Refills 5, Maintenance, 09/27/20 16:05:00 EST, Route to Pharmacy Electronically, [facility]180, cm, 06/13/20 14:06:00 EDT, Height Start Date: [...] Injection, Daily at bedtime, please label in faroese, # 10 mL, 11 Refills,Maintenance, 09/12/20 16:20:00 EST, Solution, [facility], please label in faroese, 180, cm, 06/13/20 14:06:00 EDT, Height Start [...] Mouth, 2 times a day, with meals, Montserratian label, dose increase, # 180 tablet, 4 Refills, Maintenance, 06/13/20 14:27:00 EDT, Tablet, [facility], 180, cm, 06/13/20 14:06:00 EDT, Height, 88.9, kg, 07/06/18 20:39:0... Start Date: 06/13/20 Stop Date: 09/06/21 Status: Ordered methotrexate 2.5 mg oral tablet See Instructions, CONOR 6 TABLETAS CADA SEMANA CADA MIERCOLES, # 24 tablet, 9 Refills, Soft Stop, 11/09/20 19:11:00 EST, [facility] 180, cm, 06/13/20 14:06:00 EDT, Height Start Date: 11/09/20 Status: Ordered omeprazole 40 mg oral enteric coated capsule See Instructions, CONOR 1 CAPSULA POR LA BOCA CADA CONTRERAS, # 30 capsule, 2 Refills, 01/31/21 16:53:00 EDT, [facility] 180, cm, 06/13/20 14:06:00 EDT, Height Start Date: 01/31/21 Status: Ordered predniSONE 5 mg oral tablet See Instructions, Take 2 tablets by mouth BID x 7 days, then 2 tabs qam and 1 tab qpm x 7 days, then 1 tab BID x 7 days, then 1 tab daily x 7 days., # 70 tablet, 0 Refills, Maintenance, 02/20/21 9:09:00 EDT, [facility], Label in Spanis... Start Date: 02/20/21 Status: Ordered Trulicity Pen 0.75 mg/0.5 mL subcutaneous solution 0.5 mL = 0.75 mg, Subcutaneous Injection, Every week, rotate injection sites, # 2 mL, 5 Refills, Maintenance, 12/11/20 15:58:00 EST, Solution, [facility], Partial fill upon patient request if the prescription is for a schedule II opioi... Start Date: 12/11/20 Status: Ordered Tylenol 8 HR Arthritis Pain 650 mg oral tablet, extended release 2 tablet = 1,300 mg, By Mouth, 2 times a day, PRN Pain , Moderate, # 50 tablet, 5 Refills, Maintenance, 02/08/21 10:19:00 EDT, ER Tablet, [facility], Partial fill upon patient requestif the [...]
--- OUTSIDE RECORDS SUMMARY | 2023-08-09 18:27 | XMS_ITS | Continuity of Care Document ---
Author Name Unknown Organization [facility] Address [address] [place] [address]- Care Team Providers Care Educational Technologist Name Role Phone Manpreet Cohen MD Primary Care Physician Encounter [facility] Date(s): 08/06/21 - 09/05/21 [facility] [address] [place] [address]- Allergies, Adverse Reactions, Alerts Substance Reaction Severity [...] tablet = 20 mg, By Mouth, Daily, Romanian, # 90 tablet, 4 Refills, Maintenance, 06/13/20 14:25:00 EDT, Tablet, [facility], [facility], cm, 06/13/20 14:06:00 EDT, Height, 88.9, kg, 07/06/18 20:39:00 EDT, Dry Weight Start Date: 06/13/20 Stop Date: 09/06/21 Status: Ordered BD 0.5ML [id number] SYR 881519 31GX5/16 SYRG BD 0.5ML 10Kl1HF SYR 271335 31GX5/16 SYRG, See Instructions, # 30 Unknown, 11 Refills, Maintenance, [facility], 180, cm, 06/13/20 14:06:00 EDT, Height Start Date: 12/09/20 Status: Ordered folic acid 1 mg oral tablet 1 mg, 1, tablet, By Mouth, Daily, Take daily <GREENLANDIC>, # 90 tablet, Refills 3, Tot. Refills 3, Maintenance, 03/27/21 14:34:00 EDT, Route to Pharmacy Electronically, [facility],180, cm, 03/27/21 14:07:00 EDT, Height Start Date: [...] Injection, Daily at bedtime, please label in icelandic, # 10 mL, 11 Refills,Maintenance, 09/12/20 16:20:00 EST, Solution, [facility] please label in icelandic, 180, cm, 06/13/20 14:06:00 EDT, Height Start [...] Mouth, 2 times a day, with meals, Romanian label, dose increase, # 180 tablet, 4 Refills, Maintenance, 06/21/21 14:58:00 EDT, Tablet, [facility] 180, cm, 06/21/21 14:32:00 EDT, Height Start Date: 06/21/21 Stop Date: 09/14/22 Status: Ordered methotrexate 2.5 mg oral tablet See Instructions, CONOR 6 TABLETAS CADA SEMANA CADA MIERCOLES, # 24 tablet, 9 Refills, Soft Stop, 11/09/20 19:11:00 EST, [facility] 180, cm, 06/13/20 14:06:00 EDT, Height Start Date: 11/09/20 Status: Ordered naproxen 500 mg oral tablet See Instructions, CONOR 1 TABLETA POR LA BOCA DOS VECES AL CONTRERAS CUANDO SEA NECESARIO PARA EL DOLOR CON COMIDA, # 60 tablet, 0 Refills, [facility], cm, 06/21/21 14:32:00 EDT, Height Start Date: 07/04/21 Status: Ordered omeprazole 40 mg oral enteric coated capsule See Instructions, CONOR 1 CAPSULA POR LA BOCA CADA CONTRERAS, # 30 capsule, 2 Refills, 06/26/21 6:16:00 EDT, [facility]., 180, cm, 06/21/21 14:32:00 EDT, Height Start Date: 06/26/21 Status: Ordered predniSONE 5 mg oral tablet See Instructions, Take 2 tablets by mouth BID x 7 days, then 2 tabs qam and 1 tab qpm x 7 days, then 1 tab BID x 7 days, then 1 tab daily x 7 days., # 70 tablet, 0 Refills, Maintenance, 02/20/21 9:09:00 EDT, [facility], Label in Spanis... Start Date: 02/20/21 Status: Ordered predniSONE 5 mg oral tablet 1 tablet = 5 mg, By Mouth, Daily, Romanian, # 30 tablet, 0 Refills, Maintenance, 03/27/21 14:34:00 EDT, [facility], Partial fill upon patient request if the prescription is for a schedule II opioid drug., 180, cm, 03/27/21 14:07:00 EDT,... Start Date: 03/27/21 Status: Ordered predniSONE 5 mg oral tablet 1 tablet = 5 mg, By Mouth, Daily, with food or milk, # 30 tablet, 1 Refills, Maintenance, 05/18/21 17:14:00 EDT, [facility], Partial fill upon patient request if the prescription is for a schedule II opioid drug., 180, cm, 03/27/21 14:... Start Date: 05/18/21 Status: Ordered Trulicity Pen 1.5 mg/0.5 mL subcutaneous solution = 1.5 mg, Subcutaneous Infusion, Every 7 days, # 4 each, 11 Refills, Maintenance, 06/21/21 14:59:00EDT, [facility], Partial fill upon patient request if [...] Refills, Maintenance, 02/08/21 10:19:00 EDT, ER Tablet, [facility], [facility] fill upon patient requestif the [...]
--- OUTSIDE RECORDS SUMMARY | 2023-08-09 18:27 | XMS_ITS | Continuity of Care Document ---
Author Name Unknown Organization [facility] Address [address] [place] [address]- Care Team Providers Care Supervisor Litharge Name Role Phone Manpreet Cohen MD Primary Care Physician Encounter [facility] [place] Date(s): 12/06/19 - 01/20/[address] [address]- [facility] Attending Physician: Zen CHESTER, Justin T Admitting Physician: Justin Zaldivar MD T Referring Physician: Chrissy Tellez MD Allergies, Adverse Reactions, Alerts Substance Reaction Severity Status NKA Active Immunizations Given and Recorded Vaccine Date Status Refusal Reason tetanus/diphtheria/pertussis, acel(Tdap) 03/26/19 Given pneumococcal 23-valent vaccine 03/26/19 Given Medications atorvastatin 20 mg oral tablet 1 tablet = 20 mg, By Mouth, Daily, # 30 tablet, 3 Refills, Maintenance, 10/25/19 15:06:00 EST, Tablet, [facility] 180, cm, 10/25/19 14:25:00 EST, [...] 1, tablet, By Mouth, Daily, Take daily <[facility]>, # 30 tablet, Refills 5, Tot. Refills 5, Maintenance, 10/05/19 15:54:56 EST, Route to Pharmacy Electronically, [id number], [facility] 180, cm, 03/26/19 9... Start Date: 10/05/19 Status: Ordered Freestyle Lite Lancets See Instructions, # 100 each, Refills 5, Tot. Refills 5, Maintenance, Use to test post meal blood sugar 3 times a day Dx: E11, 01/06/20 18:39:00 EDT, Compound, 180, cm, 12/01/19 [...] Injection, Daily at bedtime, please label in nepalese, # 10 mL, 11 Refills,Maintenance, 03/26/19 9:42:30 EDT, Solution, please label in nepalese Start Date: 03/26/19 Status: Ordered Insulin Syringe, BD Ultra-Fine 0.5 cc 31 G x 8 mm (5/16in) See Instructions, # 40 each, Refills 11, Tot. Refills 11, Maintenance, Use to inject insulin once daily Dx: E11, 12/22/19 8:59:00 EST, Compound, 180, cm, 12/01/19 9:06:00 EST, Height, 88.9, kg, 07/06/18 20:39:00 EDT, Dry Weight Start Date: 12/22/19 Status: Ordered lidocaine-prilocaine 2.5%-2.5% topical cream 1 application, Topically, Once, # 30 Gm, 1 Refills, Soft Stop, 10/25/19 15:11:00 EST, Cream, [facility] 1 application Topically Once, 180, cm, 10/25/19 14:25:00 EST, Height, 88.9, kg, 07/06/18 20:39:00 EDT, Dry Weight Start Date: 10/25/19 Status: Ordered metFORMIN 500 mg oral tablet 1 tablet = 500 mg, By Mouth, 2 times a day, with meals, Lao, # 60 tablet, 11 Refills, Maintenance, 03/26/19 [...] 2 Refills, Maintenance, 11/01/19 11:54:00 EST, ECCapsule, [facility] 180, cm, 10/25/19 14:25:00 EST, Height, 88.9, kg, 07/06/18 20:39:00 EDT, Dry Weight Start Date: 11/01/19 Status: Ordered predniSONE 5 mg oral tablet 1 tablet = 5 mg, By Mouth, Daily, instructions in nepalese, # 30 tablet, 0 Refills, Maintenance, 09/13/19 [...]
--- OUTSIDE RECORDS SUMMARY | 2023-08-09 18:27 | XMS_ITS | Continuity of Care Document ---
Author Name Unknown Organization [facility] Address [address] [place] [address]- Care Team Providers Care Floor Runner Name Role Phone Manpreet Cohen MD Primary Care Physician [phone] Encounter [facility] Date(s): 05/16/20 - 06/15/20 [facility] [address] [place] [address]- [facility] Allergies, Adverse Reactions, Alerts Substance Reaction Severity Status NKA Active Immunizations Given and Recorded Vaccine Date Status Refusal Reason tetanus/diphtheria/pertussis, acel(Tdap) 03/26/19 Given pneumococcal 23-valent vaccine 03/26/19 Given Medications atorvastatin 20 mg oral tablet 1 tablet = 20 mg, By Mouth, Daily, Dominican, # 90 tablet, 4 Refills, Maintenance, 06/13/20 14:25:00 EDT, Tablet, [facility], 180, cm, 06/13/20 14:06:00 EDT, Height, 88.9, kg, 07/06/18 20:39:00 EDT, Dry Weight Start Date: 06/13/20 Stop Date: 09/06/21 Status: Ordered folic acid 1 mg oral tablet 1 mg, 1, tablet, By Mouth, Daily, Take daily <VIETNAMESE>, # 30 tablet, Refills 5, Tot. Refills 5, Maintenance, 03/28/20 14:39:00 EDT, Route to Pharmacy Electronically, [facility],180, cm, 12/01/19 9:06:00 EST, Height, 88.9, kg, 07/06/18... Start Date: 03/28/20 Status: Ordered Freestyle Lite Lancets See Instructions, # 100 each, Refills 5, Tot. Refills 5, Maintenance, Use to test post meal blood sugar 3 times a day Dx: E11., 01/06/20 18:39:00 EDT, Compound, 180, cm, 12/01/19 [...] Injection, Daily at bedtime, please label in finnish, # 10 mL, 11 Refills,Maintenance, 06/13/20 14:28:00 EDT, Solution, [facility]., please label in finnish, 180, cm, 06/13/20 14:06:00 EDT, Height, 88.9, kg, 09... Start Date: 06/13/20 Status: Ordered Insulin Syringe, BD Ultra-Fine 0.5 cc 31 G x 8 mm (5/16in) See Instructions, # 40 each, Refills 11, Tot. Refills 11, Maintenance, Use to inject insulin once daily Dx: , 12/22/19 8:59:00 EST, Compound, 180, cm, 12/01/19 9:06:00 EST, Height, 88.9, kg, 07/06/18 20:39:00 EDT, Dry Weight Start Date: 12/22/19 Status: Ordered metFORMIN 1000 mg oral tablet 1 tablet = 1,000 mg, By Mouth, 2 times a day, with meals, Dominican label, dose increase, # 180 tablet, 4 Refills, Maintenance, 06/13/20 14:27:00 EDT, Tablet, [facility]., 180, cm, 06/13/20 14:06:00 EDT, Height, 88.9, kg, 07/06/18 20:39:0... Start Date: 06/13/20 Stop Date: 09/06/21 Status: Ordered methotrexate 2.5 mg oral tablet See Instructions, CONOR 6 TABLETAS LICHAA SEMANA LICHAA MICHERI, # 24 tablet, 9 Refills, Soft Stop, 01/26/20 9:28:00 EDT, [facility] 180, cm, 12/01/19 9:06:00 EST, Height, 88.9, kg, 07/06/18 20:39:00 EDT, Dry Weight Start Date: 01/26/20 Status: Ordered naproxen 500 mg oral tablet 1 tablet = 500 mg, By Mouth, 2 times a day, with food, prn pain, take with food, # 60 tablet, 0 Refills, Maintenance, 06/13/20 14:29:00 EDT, Tablet, [facility] 180, cm, 06/13/20 14:06:00 EDT, Height, 88.9, kg, 07/06/18 20:39:00 EDT, D... Start Date: 06/13/20 Status: Ordered omeprazole 40 mg oral enteric coated capsule 1 capsule = 40 mg, By Mouth, Daily, # 30 capsule, 2 Refills, Maintenance, 04/18/20 11:52:00 EDT, ECCapsule, [facility] 180, cm, 12/01/19 9:06:00 EST, Height, [...]
--- OUTSIDE RECORDS SUMMARY | 2023-08-09 18:27 | XMS_ITS | Continuity of Care Document ---
Author Name Unknown Organization [facility] Address [address] [place] [address]- Care Team Providers Care Property Utilization Manager Name Role Phone Guanakito CHESTER, Negro Fernández Primary Care Physician Encounter [facility] [place] Date(s): 11/27/21 - 12/27/21 [facility] [address] [place] [address]- Attending Physician: Admjose, Maren Admitting Physician: Admtr, Ar8 Referring Physician: Admtr, Ar8 Allergies, Adverse Reactions, Alerts No Known Allergies [...] tablet = 20 mg, By Mouth, Daily, Kazakh, # 90 tablet, 4 Refills, Maintenance, 11/22/21 10:42:00 EST, [facility], cm, 08/06/21 13:35:00 EDT, Height Start Date: 11/22/21 Stop Date: 02/15/23 Status: Ordered BD 0.5ML [id number] SYR [id number] 31GX5/16 SYRG BD 0.5ML [id number] SYR 124907 31GX5/16 SYRG, See Instructions, # 30 Unknown, 11 Refills, Maintenance, [facility], 180, cm, 06/13/20 14:06:00 EDT, Height Start Date: 12/09/20 Status: Ordered folic acid 1 mg oral tablet 1 mg, 1, tablet, By Mouth, Daily, Take daily <FAROESE>, # 90 tablet, Refills 3, Tot. Refills 3, Maintenance, 03/27/21 14:34:00 EDT, Route to Pharmacy Electronically, [facility],180, cm, 03/27/21 14:07:00 EDT, Height Start [...] Injection, Daily at bedtime, please label in armenian, # 10 mL, 11 Refills,Maintenance, 09/12/20 16:20:00 EST, Solution, [facility] please label in armenian, 180, cm, 06/13/20 14:06:00 EDT, Height Start [...] DE DORMIR, # 10 mL, 11 Refills, [facility], 180, cm, 08/06/21 13:35:00 EDT, Height Start Date: 09/25/21 Status: Ordered metFORMIN 1000 mg oral tablet 1 tablet = 1,000 mg, By Mouth, 2 times a day, with meals, Kazakh label, dose increase, # 180 tablet, 4 Refills, Maintenance, 06/21/21 14:58:00 EDT, Tablet, [facility] 180, cm, 06/21/21 14:32:00 EDT, Height Start Date: 06/21/21 Stop Date: 09/14/22 Status: Ordered methotrexate 2.5 mg oral tablet See Instructions, CONOR 6 TABLETAS CADA SEMANA CADA MIERCOLES, # 24 tablet, 9 Refills, Soft Stop, 11/09/20 19:11:00 EST, [facility] 180, cm, 06/13/20 14:06:00 EDT, Height Start Date: 11/09/20 Status: Ordered naproxen 500 mg oral tablet See Instructions, CONOR 1 TABLETA POR LA BOCA DOS VECES AL CONTRERAS CUANDO SEA NECESARIO PARA EL DOLOR CON COMIDA, # 60 tablet, 0 Refills, Maintenance, 11/27/21 10:13:00 EST, [facility] 180, cm, 11/27/21 9:55:00 EST, Height Start Date: 11/27/21 Status: Ordered omeprazole 40 mg oral enteric coated capsule See Instructions, CONOR 1 CAPSULA POR LA BOCA CADA CONTRERAS, # 30 capsule, 2 Refills, 11/27/21 13:59:00 EST, [facility]., 180, cm, 11/27/21 9:55:00 EST, Height Start Date: 11/27/21 Status: Ordered predniSONE 5 mg oral tablet See Instructions, Take 2 tablets by mouth BID x 7 days, then 2 tabs qam and 1 tab qpm x 7 days, then 1 tab BID x 7 days, then 1 tab daily x 7 days., # 70 tablet, 0 Refills, Maintenance, 02/20/21 9:09:00 EDT, [facility], Label in Spanis... Start Date: 02/20/21 Status: Ordered predniSONE 5 mg oral tablet 1 tablet = 5 mg, By Mouth, Daily, Kazakh, # 10 tablet, 0 Refills, Maintenance, 11/23/21 14:27:00 EST, [facility], Partial fill upon patient request if the prescription is for a schedule II opioid drug., 180, cm, 08/06/21 13:35:00 EDT,... Start Date: 11/23/21 Status: Ordered predniSONE 5 mg oral tablet 1 tablet = 5 mg, By Mouth, Daily, with food or milk, # 30 tablet, 1 Refills, Maintenance, 05/18/21 17:14:00 EDT, [facility], Partial fill upon patient request if the prescription is for a schedule II opioid drug., 180, cm, 03/27/21 14:... Start Date: 05/18/21 Status: Ordered Trulicity Pen 1.5 mg/0.5 mL subcutaneous solution = 1.5 mg, Subcutaneous Infusion, Every 7 days, # 4 each, 11 Refills, Maintenance, 06/21/21 14:59:00EDT, [facility]., Partial fill upon patient request if [...] Refills, Maintenance, 12/22/21 0:52:00 EST, ER Tablet, [facility], [facility] fill upon patient request ifthe prescription [...]
--- OUTSIDE RECORDS SUMMARY | 2023-08-09 18:27 | XMS_ITS | Continuity of Care Document ---
Author Name Unknown Organization [facility] Address [address] [place] [address]- Care Team Providers Care Patient Financial Services Coordinator Name Role Phone Guanakito CHESTER, Negro Fernández Primary Care Physician Encounter [facility] [place] Date(s): 12/04/21 - 01/03/22 [facility] [address] [place], [place] [address] Allergies, Adverse Reactions, Alerts No Known Allergies [...] tablet = 20 mg, By Mouth, Daily, Luxembourgish, # 90 tablet, 4 Refills, Maintenance, 11/22/21 10:42:00 EST, Tablet, [facility], 180, cm, 08/06/21 13:35:00 EDT, Height Start Date: 11/22/21 Stop Date: 02/15/23 Status: Ordered BD 0.5ML [id number] SYR [id number] 31GX5/16 SYRG BD 0.5ML [id number] SYR 794012 31GX5/16 SYRG, See Instructions, # 30 Unknown, 11 Refills, Maintenance, [facility], 180, cm, 06/13/20 14:06:00 EDT, Height Start Date: 12/09/20 Status: Ordered folic acid 1 mg oral tablet 1 mg, 1, tablet, By Mouth, Daily, Take daily <UZBEK>, # 90 tablet, Refills 3, Tot. Refills 3, Maintenance, 03/27/21 14:34:00 EDT, Route to Pharmacy Electronically, [facility],180, cm, 03/27/21 14:07:00 EDT, Height Start [...] Injection, Daily at bedtime, please label in korean, # 10 mL, 11 Refills,Maintenance, 09/12/20 16:20:00 EST, Solution, [facility] please label in korean, 180, cm, 06/13/20 14:06:00 EDT, Height Start [...] DE DORMIR, # 10 mL, 11 Refills, [facility], 180, cm, 08/06/21 13:35:00 EDT, Height Start Date: 09/25/21 Status: Ordered metFORMIN 1000 mg oral tablet 1 tablet = 1,000 mg, By Mouth, 2 times a day, with meals, Luxembourgish label, dose increase, # 180 tablet, 4 Refills, Maintenance, 06/21/21 14:58:00 EDT, Tablet, [facility] 180, cm, 06/21/21 14:32:00 EDT, Height Start Date: 06/21/21 Stop Date: 09/14/22 Status: Ordered methotrexate 2.5 mg oral tablet See Instructions, CONOR 6 TABLETAS CADA SEMANA CADA MIERCOLES, # 24 tablet, 9 Refills, Soft Stop, 11/09/20 19:11:00 EST, [facility], cm, 06/13/20 14:06:00 EDT, Height Start Date: 11/09/20 Status: Ordered naproxen 500 mg oral tablet See Instructions, CONOR 1 TABLETA POR LA BOCA DOS VECES AL CONTRERAS CUANDO SEA NECESARIO PARA EL DOLOR CON COMIDA, # 60 tablet, 0 Refills, Maintenance, 11/27/21 10:13:00 EST, [facility] 180, cm, 11/27/21 9:55:00 EST, Height Start Date: 11/27/21 Status: Ordered omeprazole 40 mg oral enteric coated capsule See Instructions, CONOR 1 CAPSULA POR LA BOCA CADA CONTRERAS, # 30 capsule, 2 Refills, 11/27/21 13:59:00 EST, [facility] 180, cm, 11/27/21 9:55:00 EST, Height Start Date: 11/27/21 Status: Ordered predniSONE 5 mg oral tablet See Instructions, Take 2 tablets by mouth BID x 7 days, then 2 tabs qam and 1 tab qpm x 7 days, then 1 tab BID x 7 days, then 1 tab daily x 7 days., # 70 tablet, 0 Refills, Maintenance, 02/20/21 9:09:00 EDT, [facility], Label in Spanis... Start Date: 02/20/21 Status: Ordered predniSONE 5 mg oral tablet 1 tablet = 5 mg, By Mouth, Daily, Luxembourgish, # 10 tablet, 0 Refills, Maintenance, 11/23/21 14:27:00 EST, [facility], Partial fill upon patient request if the prescription is for a schedule II opioid drug., 180, cm, 08/06/21 13:35:00 EDT,... Start Date: 11/23/21 Status: Ordered predniSONE 5 mg oral tablet 1 tablet = 5 mg, By Mouth, Daily, with food or milk, # 30 tablet, 1 Refills, Maintenance, 05/18/21 17:14:00 EDT, [facility], Partial fill upon patient request if the prescription is for a schedule II opioid drug., 180, cm, 03/27/21 14:... Start Date: 05/18/21 Status: Ordered Trulicity Pen 1.5 mg/0.5 mL subcutaneous solution = 1.5 mg, Subcutaneous Infusion, Every 7 days, # 4 each, 11 Refills, Maintenance, 06/21/21 14:59:00EDT, [facility], Partial fill upon patient request if [...] Refills, Maintenance, 12/22/21 0:52:00 EST, ER Tablet, [facility], Partial fill upon patient request ifthe prescription [...]
--- OUTSIDE RECORDS SUMMARY | 2023-08-09 18:27 | XMS_ITS | Continuity of Care Document ---
Author Name Unknown Organization [facility] Address [address] [place] [address]- Care Team Providers Care Education Manager Name Role Phone Manpreet Cohen MD Primary Care Physician [phone] En[place] [facility] [place] 10/17/20 - 11/16/20 [facility] [address] [place], [place] [address] Attending Physician: Maren Chew Admitting Physician: AdmtrMaren Referring Physician: AdmtrMaren Allergies, Adverse Reactions, Alerts Substance Reaction Severity Status NKA Active Immunizations Given and Recorded Vaccine Date Status Refusal Reason tetanus/diphtheria/pertussis, acel(Tdap) 03/26/19 Given pneumococcal 23-valent vaccine 03/26/19 Given Medications atorvastatin 20 mg oral tablet 1 tablet = 20 mg, By Mouth, Daily, Armenian, # 90 tablet, 4 Refills, Maintenance, 06/13/20 14:25:00 EDT, Tablet, [facility], 180, cm, 06/13/20 14:06:00 EDT, Height, 88.9, kg, 07/06/18 20:39:00 EDT, Dry Weight Start Date: 06/13/20 Stop Date: 09/06/21 Status: Ordered folic acid 1 mg oral tablet 1 mg, 1, tablet, By Mouth, Daily, Take daily <RWANDAN>, # 30 tablet, Refills 5, Tot. Refills 5, Maintenance, 09/27/20 16:05:00 EST, Route to Pharmacy Electronically, [facility],180, cm, 06/13/20 14:06:00 EDT, Height Start [...] Injection, Daily at bedtime, please label in montserratian, # 10 mL, 11 Refills,Maintenance, 09/12/20 16:20:00 EST, Solution, [facility]., please label in montserratian, 180, cm, 06/13/20 14:06:00 EDT, Height Start Date: 09/12/20 Status: Ordered Insulin Syringe, BD Ultra-Fine 0.5 cc 31 G x 8 mm (5/16in) See Instructions, # 40 each, Refills 11, Tot. Refills 11, Maintenance, Use to inject insulin once daily Dx: E11., 12/22/19 8:59:00 EST, Compound, 180, cm, 12/01/19 9:06:00 EST, Height, 88.9, kg, 07/06/18 20:39:00 EDT, Dry Weight Start Date: 12/22/19 Status: Ordered metFORMIN 1000 mg oral tablet 1 tablet = 1,000 mg, By Mouth, 2 times a day, with meals, Armenian label, dose increase, # 180 tablet, 4 Refills, Maintenance, 06/13/20 14:27:00 EDT, Tablet, [facility] 180, cm, 06/13/20 14:06:00 EDT, Height, 88.9, kg, 07/06/18 20:39:0... Start Date: 06/13/20 Stop Date: 09/06/21 Status: Ordered methotrexate 2.5 mg oral tablet See Instructions, CONOR 6 TABLETAS CADA SEMANA CADA MIERCOLES, # 24 tablet, 9 Refills, Soft Stop, 11/09/20 19:11:00 EST, [facility], cm, 06/13/20 14:06:00 EDT, Height Start Date: 11/09/20 Status: Ordered naproxen 500 mg oral tablet See Instructions, CONOR 1 TABLETA POR LA BOCA DOS VECES AL CONTRERAS CUANDO SEA NECESARIO PARA EL DOLOR CON COMIDA, # 60 tablet, 0 Refills, Acute, [facility], 180, cm, 06/13/20 14:06:00 EDT, Height Start Date: 11/10/20 Status: Ordered omeprazole 40 mg oral enteric coated capsule 1 capsule = 40 mg, By Mouth, Daily, # 30 capsule, 2 Refills, Maintenance, 08/09/20 11:18:00 EDT, ECCapsule, [facility] 180, cm, 06/13/20 14:06:00 EDT, Height, Dry Weight Start Date: 08/09/20 Status: Ordered omeprazole 40 mg oral enteric coated capsule See Instructions, CONOR 1 CAPSULA POR LA BOCA CADA CONTRERAS, # 30 capsule, 2 Refills, Maintenance, [facility], [facility], cm, 06/13/20 14:06:00 EDT, Height Start Date: 10/17/20 Status: Ordered Problem List Condition Effective Dates [...]
--- OUTSIDE RECORDS SUMMARY | 2023-08-09 18:27 | XMS_ITS | Continuity of Care Document ---
Author Name Unknown Organization [facility] Address [address] [place] [address]- Care Team Providers Care Sand Bobber Name Role Phone Manpreet Cohen MD Primary Care Physician [phone] Encounter [facility] [place] Date(s): 02/16/21 - 03/18/21 [facility] [address] [place] [address]- Allergies, Adverse Reactions, Alerts Substance Reaction Severity Status NKA Active Immunizations Given and Recorded Vaccine Date Status Refusal Reason tetanus/diphtheria/pertussis, acel(Tdap) 03/26/19 Given pneumococcal 23-valent vaccine 03/26/19 Given Medications atorvastatin 20 mg oral tablet 1 tablet = 20 mg, By Mouth, Daily, Malagasy, # 90 tablet, 4 Refills, Maintenance, 06/13/20 14:25:00 EDT, Tablet, [facility], [facility], cm, 06/13/20 14:06:00 EDT, Height, 88.9, kg, 07/06/18 20:39:00 EDT, Dry Weight Start Date: 06/13/20 Stop Date: 09/06/21 Status: Ordered BD 0.5ML [id number] SYR 613109 31GX5/16 SYRG BD 0.5ML [id number] SYR 134308 31GX5/16 SYRG, See Instructions, # 30 Unknown, 11 Refills, Maintenance, [facility], 180, cm, 06/13/20 14:06:00 EDT, Height Start Date: 12/09/20 Status: Ordered folic acid 1 mg oral tablet 1 mg, 1, tablet, By Mouth, Daily, Take daily <MALAY>, # 30 tablet, Refills 5, Tot. Refills 5, Maintenance, 09/27/20 16:05:00 EST, Route to Pharmacy Electronically, [facility]180, cm, 06/13/20 14:06:00 EDT, Height Start Date: [...] Injection, Daily at bedtime, please label in trinidadian, # 10 mL, 11 Refills,Maintenance, 09/12/20 16:20:00 EST, Solution, [facility], please label in trinidadian, 180, cm, 06/13/20 14:06:00 EDT, Height Start [...] Mouth, 2 times a day, with meals, Malagasy label, dose increase, # 180 tablet, 4 Refills, Maintenance, 06/13/20 14:27:00 EDT, Tablet, [facility], 180, cm, 06/13/20 14:06:00 EDT, Height, 88.9, kg, 07/06/18 20:39:0... Start Date: 06/13/20 Stop Date: 09/06/21 Status: Ordered methotrexate 2.5 mg oral tablet See Instructions, CONOR 6 TABLETAS CADA SEMANA CADA MIERCOLES, # 24 tablet, 9 Refills, Soft Stop, 11/09/20 19:11:00 EST, [facility]., 180, cm, 06/13/20 14:06:00 EDT, Height Start Date: 11/09/20 Status: Ordered omeprazole 40 mg oral enteric coated capsule See Instructions, CONOR 1 CAPSULA POR LA BOCA CADA CONTRERAS, # 30 capsule, 2 Refills, 01/31/21 16:53:00 EDT, [facility] 180, cm, 06/13/20 14:06:00 EDT, Height Start Date: 01/31/21 Status: Ordered predniSONE 5 mg oral tablet See Instructions, Take 2 tablets by mouth BID x 7 days, then 2 tabs qam and 1 tab qpm x 7 days, then 1 tab BID x 7 days, then 1 tab daily x 7 days., # 70 tablet, 0 Refills, Maintenance, 02/20/21 9:09:00 EDT, [facility], Label in Spanis... Start Date: 02/20/21 Status: Ordered Trulicity Pen 0.75 mg/0.5 mL subcutaneous solution 0.5 mL = 0.75 mg, Subcutaneous Injection, Every week, rotate injection sites, # 2 mL, 5 Refills, Maintenance, 12/11/20 15:58:00 EST, Solution, [facility], Partial fill upon patient request if the prescription is for a schedule II opioi... Start Date: 12/11/20 Status: Ordered Tylenol 8 HR Arthritis Pain 650 mg oral tablet, extended release 2 tablet = 1,300 mg, By Mouth, 2 times a day, PRN Pain , Moderate, # 50 tablet, 5 Refills, Maintenance, 02/08/21 10:19:00 EDT, ER Tablet, [facility], Partial fill upon patient requestif the [...]
--- OUTSIDE RECORDS SUMMARY | 2023-08-09 18:27 | XMS_ITS | Continuity of Care Document ---
Author Name Unknown Organization [facility] Address [address] [place] [address]- Care Team Providers Care Tar Heater Operator Name Role Phone Manpreet Cohen MD Primary Care Physician Encounter [facility] Date(s): 06/21/21 - 07/21/21 [facility] [address] [place], [place] [address] Attending Physician: AdmMaren garcia Admitting Physician: Admtr, Maren Referring Physician: Admtr, Ar8 Allergies, Adverse Reactions, Alerts Substance Reaction Severity [...] tablet = 20 mg, By Mouth, Daily, [place] Helen[place], # 90 tablet, 4 Refills, Maintenance, 06/13/20 14:25:00 EDT, [facility]t, [facility], cm, 06/13/20 14:06:00 EDT, Height, 88.9, kg, 07/06/18 20:39:00 EDT, Dry Weight Start Date: 06/13/20 Stop Date: 09/06/21 Status: Ordered BD 0.5ML [id number] SYR 719680 31GX5/16 SYRG BD 0.5ML [id number] SYR 330235 31GX5/16 SYRG, See Instructions, # 30 Unknown, 11 Refills, Maintenance, [facility], 180, cm, 06/13/20 14:06:00 EDT, Height Start Date: 12/09/20 Status: Ordered folic acid 1 mg oral tablet 1 mg, 1, tablet, By Mouth, Daily, Take daily <GRENADIAN>, # 90 tablet, Refills 3, Tot. Refills 3, Maintenance, 03/27/21 14:34:00 EDT, Route to Pharmacy Electronically, [facility],180, cm, 03/27/21 14:07:00 EDT, Height Start Date: [...] Injection, Daily at bedtime, please label in french, # 10 mL, 11 Refills,Maintenance, 09/12/20 16:20:00 EST, Solution, [facility] please label in french, 180, cm, 06/13/20 14:06:00 EDT, Height Start [...] Mouth, 2 times a day, with meals, [place] Helen[place] label, dose increase, # 180 tablet, 4 Refills, Maintenance, 06/21/21 14:58:00 EDT, Tablet, [facility] 180, cm, 06/21/21 14:32:00 EDT, Height Start Date: 06/21/21 Stop Date: 09/14/22 Status: Ordered methotrexate 2.5 mg oral tablet See Instructions, CONOR 6 TABLETAS CADA SEMANA CADA MIERCOLES, # 24 tablet, 9 Refills, Soft Stop, 11/09/20 19:11:00 EST, [facility] 180, cm, 06/13/20 14:06:00 EDT, Height Start Date: 11/09/20 Status: Ordered naproxen 500 mg oral tablet See Instructions, CONOR 1 TABLETA POR LA BOCA DOS VECES AL CONTRERAS CUANDO SEA NECESARIO PARA EL DOLOR CON COMIDA, # 60 tablet, 0 Refills, [facility], [facility], cm, 06/21/21 14:32:00 EDT, Height Start Date: 07/04/21 Status: Ordered omeprazole 40 mg oral enteric coated capsule See Instructions, CONOR 1 CAPSULA POR LA BOCA CADA CONTRERAS, # 30 capsule, 2 Refills, 06/26/21 6:16:00 EDT, [facility] 180, cm, 06/21/21 14:32:00 EDT, Height Start Date: 06/26/21 Status: Ordered predniSONE 5 mg oral tablet See Instructions, Take 2 tablets by mouth BID x 7 days, then 2 tabs qam and 1 tab qpm x 7 days, then 1 tab BID x 7 days, then 1 tab daily x 7 days., # 70 tablet, 0 Refills, Maintenance, 02/20/21 9:09:00 EDT, [facility], Label in Spanis... Start Date: 02/20/21 Status: Ordered predniSONE 5 mg oral tablet 1 tablet = 5 mg, By Mouth, Daily, [place], # 30 tablet, 0 Refills, Maintenance, 03/27/21 14:34:00 EDT, [facility], Partial fill upon patient request if the prescription is for a schedule II opioid drug., 180, cm, 03/27/21 14:07:00 EDT,... Start Date: 03/27/21 Status: Ordered predniSONE 5 mg oral tablet 1 tablet = 5 mg, By Mouth, Daily, with food or milk, # 30 tablet, 1 Refills, Maintenance, 05/18/21 17:14:00 EDT, [facility], Partial fill upon patient request if the prescription is for a schedule II opioid drug., 180, cm, 03/27/21 14:... Start Date: 05/18/21 Status: Ordered Trulicity Pen 1.5 mg/0.5 mL subcutaneous solution = 1.5 mg, Subcutaneous Infusion, Every 7 days, # 4 each, 11 Refills, Maintenance, 06/21/21 14:59:00EDT, [facility], Partial fill upon patient request if the [...] Refills, Maintenance, 02/08/21 10:19:00 EDT, ER Tablet, [facility] Partial fill upon patient requestif the [...]
--- OUTSIDE RECORDS SUMMARY | 2023-08-09 18:27 | XMS_ITS | Continuity of Care Document ---
Author Name Unknown Organization [facility] Address [address] [place] [address]- Care Team Providers Care Balance Clerk Name Role Phone Manpreet Cohen MD Primary Care Physician [phone] Encounter [facility] [place] Date(s): 12/08/19 - 12/18/[address] [address]- [facility] Attending Physician: Maren Chew Admitting Physician: AdmtrMaren Referring Physician: Admtr, Ar8 Allergies, Adverse Reactions, Alerts Substance Reaction Severity Status NKA Active Immunizations Given and Recorded Vaccine Date Status Refusal Reason tetanus/diphtheria/pertussis, acel(Tdap) 03/26/19 Given pneumococcal 23-valent vaccine 03/26/19 Given Medications atorvastatin 20 mg oral tablet 1 tablet = 20 mg, By Mouth, Daily, # 30 tablet, 3 Refills, Maintenance, 10/25/19 15:06:00 EST, Tablet, [facility] 180, cm, 10/25/19 14:25:00 EST, Height, [...] 1, tablet, By Mouth, Daily, Take daily <MONTSERRATIAN>, # 30 tablet, Refills 5, Tot. Refills 5, Maintenance, 10/05/19 15:54:56 EST, Route to Pharmacy Electronically, [id number], [facility] 180, cm, 03/26/19 9... Start [...] Injection, Daily at bedtime, please label in danish, # 10 mL, 11 Refills,Maintenance, 03/26/19 9:42:30 EDT, Solution, please label in danish Start Date: 03/26/19 Status: Ordered Insulin Syringe, [...] Soft Stop, 10/25/19 15:11:00 EST, Cream, [facility] 1 application Topically Once, 180, cm, 10/25/19 14:25:00 EST, Height, 88.9, kg, 07/06/18 20:39:00 EDT, Dry Weight Start Date: 10/25/19 Status: Ordered metFORMIN 500 mg oral tablet 1 tablet = 500 mg, By Mouth, 2 times a day, with meals, Rwandan, # 60 tablet, 11 Refills, Maintenance, 03/26/19 [...] 2 Refills, Maintenance, 11/01/19 11:54:00 EST, ECCapsule, [facility] 180, cm, 10/25/19 14:25:00 EST, Height, 88.9, kg, 07/06/18 20:39:00 EDT, Dry Weight Start Date: 11/01/19 Status: Ordered predniSONE 5 mg oral tablet 1 tablet = 5 mg, By Mouth, Daily, instructions in danish, # 30 tablet, 0 Refills, Maintenance, 09/13/19 [...]
--- OUTSIDE RECORDS SUMMARY | 2023-08-09 18:27 | XMS_ITS | Continuity of Care Document ---
Author Name Unknown Organization [facility] Address [address] [place] [address]- Care Team Providers Care Athletic Training Internship Name Role Phone Manpreet Cohen MD Primary Care Physician [phone] Encounter [facility] Date(s): 08/23/21 - 09/22/21 [facility] [address], [place] [address] Attending Physician: AdmMaren garcia Admitting Physician: Admtr, [...] tablet = 20 mg, By Mouth, Daily, Chilean, # 90 tablet, 4 Refills, Maintenance, 06/13/20 14:25:00 EDT, [facility]t, [facility], [facility], cm, 06/13/20 14:06:00 EDT, Height, 88.9, kg, 07/06/18 20:39:00 EDT, Dry Weight Start Date: 06/13/20 Stop Date: 09/06/21 Status: Ordered BD 0.5ML [id number] SYR 846656 31GX5/16 SYRG BD 0.5ML [id number] SYR 943182 31GX5/16 SYRG, See Instructions, # 30 Unknown, 11 Refills, Maintenance, [facility], 180, cm, 06/13/20 14:06:00 EDT, Height Start Date: 12/09/20 Status: Ordered folic acid 1 mg oral tablet 1 mg, 1, tablet, By Mouth, Daily, Take daily <ICELANDIC>, # 90 tablet, Refills 3, Tot. Refills 3, Maintenance, 03/27/21 14:34:00 EDT, Route to Pharmacy Electronically, [facility],180, cm, 03/27/21 14:07:00 EDT, Height Start [...] Injection, Daily at bedtime, please label in indian, # 10 mL, 11 Refills,Maintenance, 09/12/20 16:20:00 EST, Solution, [facility] please label in indian, 180, cm, 06/13/20 14:06:00 EDT, Height Start [...] Mouth, 2 times a day, with meals, Chilean label, dose increase, # 180 tablet, 4 Refills, Maintenance, 06/21/21 14:58:00 EDT, Tablet, [facility] 180, cm, 06/21/21 14:32:00 EDT, Height Start Date: 06/21/21 Stop Date: 09/14/22 Status: Ordered methotrexate 2.5 mg oral tablet See Instructions, CONOR 6 TABLETAS CADA SEMANA CADA MIERCOLES, # 24 tablet, 9 Refills, Soft Stop, 11/09/20 19:11:00 EST, [facility] 180, cm, 06/13/20 14:06:00 EDT, Height Start Date: 11/09/20 Status: Ordered naproxen 500 mg oral tablet See Instructions, CONOR 1 TABLETA POR LA BOCA DOS VECES AL CONTRERAS CUANDO SEA NECESARIO PARA EL DOLOR CON COMIDA, # 60 tablet, 0 Refills, [facility], 180, cm, 06/21/21 14:32:00 EDT, Height Start Date: 07/04/21 Status: Ordered omeprazole 40 mg oral enteric coated capsule See Instructions, CONOR 1 CAPSULA POR LA BOCA CADA CONTRERAS, # 30 capsule, 2 Refills, 06/26/21 6:16:00 EDT, [facility]., 180, cm, 06/21/21 14:32:00 EDT, Height Start Date: 06/26/21 Status: Ordered predniSONE 5 mg oral tablet See Instructions, Take 2 tablets by mouth BID x 7 days, then 2 tabs qam and 1 tab qpm x 7 days, then 1 tab BID x 7 days, then 1 tab daily x 7 days., # 70 tablet, 0 Refills, Maintenance, 02/20/21 9:09:00 EDT, [facility], Label in Spanis... Start Date: 02/20/21 Status: Ordered predniSONE 5 mg oral tablet 1 tablet = 5 mg, By Mouth, Daily, Chilean, # 30 tablet, 0 Refills, Maintenance, 03/27/21 14:34:00 EDT, [facility], Partial fill upon patient request if the prescription is for a schedule II opioid drug., 180, cm, 03/27/21 14:07:00 EDT,... Start Date: 03/27/21 Status: Ordered predniSONE 5 mg oral tablet 1 tablet = 5 mg, By Mouth, Daily, with food or milk, # 30 tablet, 1 Refills, Maintenance, 05/18/21 17:14:00 EDT, [facility], Partial fill upon patient request if the prescription is for a schedule II opioid drug., 180, cm, 03/27/21 14:... Start Date: 05/18/21 Status: Ordered Trulicity Pen 1.5 mg/0.5 mL subcutaneous solution = 1.5 mg, Subcutaneous Infusion, Every 7 days, # 4 each, 11 Refills, Maintenance, 06/21/21 14:59:00EDT, [facility], Partial fill upon patient request if [...] Refills, Maintenance, 02/08/21 10:19:00 EDT, ER Tablet, [facility], Partial fill upon patient requestif the [...]
--- OUTSIDE RECORDS SUMMARY | 2023-08-09 18:27 | XMS_ITS | Continuity of Care Document ---
Author Name Unknown Organization [facility] Address [address] [place] [address]- Care Team Providers Care Security Program Manager Name Role Phone Guanakito CHESTER, Negro Fernández Primary Care Physician [phone] Encounter [facility] R [id number] Date(s): 02/11/22 - 03/13/22 [facility] [address] [place] [address]- Attending Physician: Maren Chew Admitting Physician: AdmMaren garcia Referring Physician: Admtr, Ar8 Allergies, Adverse Reactions, [...] 14:32:00EDT, Height Start Date: 06/28/21 Status: Ordered acetaminophen 650 mg oral tablet, extended release See Instructions, CONOR 1 TABLETA POR LA BOCA CADA 8 HORAS CUANDO SEA NECESARIO PARA EL DOLOR MODERADO, # 24 tablet, 0 Refills, [facility], 180, cm, 11/27/21 9:55:00 EST, Height Start Date: 01/21/22 Status: Ordered atorvastatin 20 mg oral tablet 1 tablet = 20 mg, By Mouth, Daily, Serbian, # 90 tablet, 4 Refills, Maintenance, 11/22/21 10:42:00 EST, Tablet, [facility], 180, cm, 08/06/21 13:35:00 EDT, Height Start Date: 11/22/21 Stop Date: 02/15/23 Status: Ordered BD 0.5ML [id number] SYR 940308 31GX5/16 SYRG BD 0.5ML [id number] SYR 600008 31GX5/16 SYRG, See Instructions, # 30 Unknown, 11 Refills, Maintenance, [facility], 180, cm, 06/13/20 14:06:00 EDT, Height Start Date: 12/09/20 Status: Ordered folic acid 1 mg oral tablet 1 mg, 1, tablet, By Mouth, Daily, Take daily <UPPER SORBIAN>, # 90 tablet, Refills 3, Tot. Refills 3, Maintenance, 03/27/21 14:34:00 EDT, Route to Pharmacy Electronically, [facility],180, cm, 03/27/21 14:07:00 EDT, Height Start [...] Injection, Daily at bedtime, please label in moroccan, # 10 mL, 11 Refills,Maintenance, 09/12/20 16:20:00 EST, Solution, [facility] please label in moroccan, 180, cm, 06/13/20 14:06:00 EDT, Height Start [...] DE DORMIR, # 10 mL, 11 Refills, [facility], 180, cm, 08/06/21 13:35:00 EDT, Height Start Date: 09/25/21 Status: Ordered metFORMIN 1000 mg oral tablet 1 tablet = 1,000 mg, By Mouth, 2 times a day, with meals, Serbian label, dose increase, # 180 tablet, 4 Refills, Maintenance, 06/21/21 14:58:00 EDT, Tablet, [facility] 180, cm, 06/21/21 14:32:00 EDT, Height Start Date: 06/21/21 Stop Date: 09/14/22 Status: Ordered methotrexate 2.5 mg oral tablet See Instructions, CONOR 6 TABLETAS CADA SEMANA CADA MIERCOLES, # 24 tablet, 9 Refills, Soft Stop, 11/09/20 19:11:00 EST, [facility] 180, cm, 06/13/20 14:06:00 EDT, Height Start Date: 11/09/20 Status: Ordered naproxen 500 mg oral tablet See Instructions, CONOR 1 TABLETA POR LA BOCA DOS VECES AL CONTRERAS CUANDO SEA NECESARIO PARA EL DOLOR CON COMIDA, # 60 tablet, 1 Refills, [facility], 180, cm, 11/27/21 9:55:00 EST, Height Start Date: 01/15/22 Status: Ordered omeprazole 40 mg oral enteric coated capsule See Instructions, CONOR 1 CAPSULA POR LA BOCA CADA CONTRERAS, # 30 capsule, 2 Refills, 11/27/21 13:59:00 EST, [facility] 180, cm, 11/27/21 9:55:00 EST, Height Start Date: 11/27/21 Status: Ordered PEG-3350 with Electrolytes (Eqv-NuLYTELY) oral powder for reconstitution See Instructions, Serbian instructions please Mix powder with water according to package directions. Follow [facility] instructions on when to drink the prep fluid on the evening before your colonoscopy., # 1 each, 0 Refills, Maintenance, 03/03/22 15:... Start Date: 03/03/22 Status: Ordered predniSONE 5 mg oral delayed release tablet 1 tablet = 5 mg, By Mouth, Daily, Can take twice daily for flares, # 20 tablet, 0 Refills, Maintenance, 01/24/22 9:44:00 EDT, CR Tablet, [facility]., Partial fill upon patient request if the prescription is for a schedule II opioid drug... Start Date: 01/24/22 Status: Ordered predniSONE 5 mg oral tablet 1 tablet = 5 mg, By Mouth, Daily, with food or milk, # 30 tablet, 1 Refills, Maintenance, 05/18/21 17:14:00 EDT, [facility]., Partial fill upon patient request if the prescription is for a schedule II opioid drug., 180, cm, 03/27/21 14:... Start Date: 05/18/21 Status: Ordered Trulicity Pen 1.5 mg/0.5 mL subcutaneous solution = 1.5 mg, Subcutaneous Infusion, Every 7 days, # 4 each, 11 Refills, Maintenance, 06/21/21 14:59:00EDT, [facility]., Partial fill upon patient request if the prescription is for a schedule II opioid drug., 180, cm, 06/21/21 14:32:00 ED... Start Date: 06/21/21 Stop Date: 06/16/22 Status: Ordered Problem List Condition Effective Dates [...]
--- OUTSIDE RECORDS SUMMARY | 2023-08-09 18:27 | XMS_ITS | Continuity of Care Document ---
Author Name Unknown Organization [facility] Address [address] [place] [address]- Care Team Providers Care Trimmer Meat Name Role Phone Manpreet Cohen MD Primary Care Physician Encounter [facility] Date(s): 02/08/21 - 03/10/21 [facility] [address] [place] [address]- Allergies, Adverse Reactions, Alerts Substance Reaction Severity Status NKA Active Immunizations Given and Recorded Vaccine Date Status Refusal Reason tetanus/diphtheria/pertussis, acel(Tdap) 03/26/19 Given pneumococcal 23-valent vaccine 03/26/19 Given Medications atorvastatin 20 mg oral tablet 1 tablet = 20 mg, By Mouth, Daily, Azerbaijani, # 90 tablet, 4 Refills, Maintenance, 06/13/20 14:25:00 EDT, Tablet, [facility], [facility], cm, 06/13/20 14:06:00 EDT, Height, 88.9, kg, 07/06/18 20:39:00 EDT, Dry Weight Start Date: 06/13/20 Stop Date: 09/06/21 Status: Ordered BD 0.5ML [id number] SYR 563775 31GX5/16 SYRG BD 0.5ML [id number] SYR 729090 31GX5/16 SYRG, See Instructions, # 30 Unknown, 11 Refills, Maintenance, [facility], 180, cm, 06/13/20 14:06:00 EDT, Height Start Date: 12/09/20 Status: Ordered folic acid 1 mg oral tablet 1 mg, 1, tablet, By Mouth, Daily, Take daily <GEORGIAN>, # 30 tablet, Refills 5, Tot. Refills 5, Maintenance, 09/27/20 16:05:00 EST, Route to Pharmacy Electronically, [facility]180, cm, 06/13/20 14:06:00 EDT, Height Start [...] Injection, Daily at bedtime, please label in swiss, # 10 mL, 11 Refills,Maintenance, 09/12/20 16:20:00 EST, Solution, [facility], please label in swiss, 180, cm, 06/13/20 14:06:00 EDT, Height Start [...] Mouth, 2 times a day, with meals, Azerbaijani label, dose increase, # 180 tablet, 4 Refills, Maintenance, 06/13/20 14:27:00 EDT, Tablet, [facility], 180, cm, 06/13/20 14:06:00 EDT, Height, 88.9, kg, 07/06/18 20:39:0... Start Date: 06/13/20 Stop Date: 09/06/21 Status: Ordered methotrexate 2.5 mg oral tablet See Instructions, CONOR 6 TABLETAS CADA SEMANA CADA MIERCOLES, # 24 tablet, 9 Refills, Soft Stop, 11/09/20 19:11:00 EST, [facility]., 180, cm, 06/13/20 14:06:00 EDT, Height Start Date: 11/09/20 Status: Ordered omeprazole 40 mg oral enteric coated capsule See Instructions, CONOR 1 CAPSULA POR LA BOCA CADA CONTRERAS, # 30 capsule, 2 Refills, 01/31/21 16:53:00 EDT, [facility] 180, cm, 06/13/20 14:06:00 EDT, Height Start Date: 01/31/21 Status: Ordered predniSONE 5 mg oral tablet See Instructions, Take 2 tablets by mouth BID x 7 days, then 2 tabs qam and 1 tab qpm x 7 days, then 1 tab BID x 7 days, then 1 tab daily x 7 days., # 70 tablet, 0 Refills, Maintenance, 02/20/21 9:09:00 EDT, [facility], Label in Spanis... Start Date: 02/20/21 Status: Ordered Trulicity Pen 0.75 mg/0.5 mL subcutaneous solution 0.5 mL = 0.75 mg, Subcutaneous Injection, Every week, rotate injection sites, # 2 mL, 5 Refills, Maintenance, 12/11/20 15:58:00 EST, Solution, [facility], Partial fill upon patient request if the prescription is for a schedule II opioi... Start Date: 12/11/20 Status: Ordered Tylenol 8 HR Arthritis Pain 650 mg oral tablet, extended release 2 tablet = 1,300 mg, By Mouth, 2 times a day, PRN Pain , Moderate, # 50 tablet, 5 Refills, Maintenance, 02/08/21 10:19:00 EDT, ER Tablet, [facility], Partial fill upon patient requestif the [...]
--- OUTSIDE RECORDS SUMMARY | 2023-08-09 18:27 | XMS_ITS | Continuity of Care Document ---
Author Name Unknown Organization [facility] Address [address] [place] [address]- Care Team Providers Care International Bank Manager Name Role Phone Guanakito CHESTER, Negro Fernández Primary Care Physician Encounter [facility] R [id number] Date(s): 11/23/21 - 12/26/21 [facility] [address] [place] [address]- Attending Physician: Beka Zapien MD Admitting Physician: Beka Zapien MD Allergies, Adverse Reactions, Alerts No Known Allergies [...] tablet = 20 mg, By Mouth, Daily, Bulgarian, # 90 tablet, 4 Refills, Maintenance, 11/22/21 10:42:00 EST, Tablet, [facility], 180, cm, 08/06/21 13:35:00 EDT, Height Start Date: 11/22/21 Stop Date: 02/15/23 Status: Ordered BD 0.5ML [id number] SYR 996138 31GX5/16 SYRG BD 0.5ML 63Av6MP SYR 962948 31GX5/16 SYRG, See Instructions, # 30 Unknown, 11 Refills, Maintenance, [facility], 180, cm, 06/13/20 14:06:00 EDT, Height Start Date: 12/09/20 Status: Ordered folic acid 1 mg oral tablet 1 mg, 1, tablet, By Mouth, Daily, Take daily <LATVIAN>, # 90 tablet, Refills 3, Tot. Refills 3, Maintenance, 03/27/21 14:34:00 EDT, Route to Pharmacy Electronically, [facility],180, cm, 03/27/21 14:07:00 EDT, Height Start [...] in danish, # 10 mL, 11 Refills,Maintenance, 09/12/20 16:20:00 EST, Solution, [facility] please label in danish, 180, cm, 06/13/20 14:06:00 EDT, Height Start [...] DE DORMIR, # 10 mL, 11 Refills, [facility], [facility], cm, 08/06/21 13:35:00 EDT, Height Start Date: 09/25/21 Status: Ordered metFORMIN 1000 mg oral tablet 1 tablet = 1,000 mg, By Mouth, 2 times a day, with meals, Bulgarian label, dose increase, # 180 tablet, 4 Refills, Maintenance, 06/21/21 14:58:00 EDT, Tablet, [facility] 180, cm, 06/21/21 14:32:00 EDT, Height Start Date: 06/21/21 Stop Date: 09/14/22 Status: Ordered methotrexate 2.5 mg oral tablet See Instructions, CONOR 6 TABLETAS CADA SEMANA CADA MIERCOLES, # 24 tablet, 9 Refills, Soft Stop, 11/09/20 19:11:00 EST, [facility] 180, cm, 06/13/20 14:06:00 EDT, Height Start Date: 11/09/20 Status: Ordered naproxen 500 mg oral tablet See Instructions, CONOR 1 TABLETA POR LA BOCA DOS VECES AL CONTRERAS CUANDO SEA NECESARIO PARA EL DOLOR CON COMIDA, # 60 tablet, 0 Refills, Maintenance, 11/27/21 10:13:00 EST, [facility]., 180, cm, 11/27/21 [...] tablet, 0 Refills, Maintenance, 02/20/21 9:09:00 EDT, [facility], Label in Spanis... Start Date: 02/20/21 Status: Ordered predniSONE 5 mg oral tablet 1 tablet = 5 mg, By Mouth, Daily, Bulgarian, # 10 tablet, 0 Refills, Maintenance, 11/23/21 14:27:00 EST, [facility], Partial fill upon patient request if the prescription is for a schedule II opioid drug., 180, cm, 08/06/21 13:35:00 EDT,... Start Date: 11/23/21 Status: Ordered predniSONE 5 mg oral tablet 1 tablet = 5 mg, By Mouth, Daily, with food or milk, # 30 tablet, 1 Refills, Maintenance, 05/18/21 17:14:00 EDT, [facility], Partial fill upon patient request if the prescription is for a schedule II opioid drug., 180, cm, 03/27/21 14:... Start Date: 05/18/21 Status: Ordered Trulicity Pen 1.5 mg/0.5 mL subcutaneous solution = 1.5 mg, Subcutaneous Infusion, Every 7 days, # 4 each, 11 Refills, Maintenance, 06/21/21 14:59:00EDT, [facility]., Partial fill upon patient request if [...] Refills, Maintenance, 12/22/21 0:52:00 EST, ER Tablet, [facility], [facility] fill upon patient request ifthe [...]
--- OUTSIDE RECORDS SUMMARY | 2023-08-09 18:27 | XMS_ITS | Continuity of Care Document ---
Author Name Unknown Organization [facility] Address [address] [place] [address]- Care Team Providers Care Usability Architect Name Role Phone Manpreet Cohen MD Primary Care Physician [place] [facility] [place]/16[place]20 - 06/21/20 [facility] [address] [place] [address]- [facility] Attending Physician: Beka Zapien MD Admitting Physician: Beka Zapien MD Allergies, Adverse Reactions, Alerts Substance Reaction Severity Status NKA Active Immunizations Given and Recorded Vaccine Date Status Refusal Reason tetanus/diphtheria/pertussis, acel(Tdap) 03/26/19 Given pneumococcal 23-valent vaccine 03/26/19 Given Medications atorvastatin 20 mg oral tablet 1 tablet = 20 mg, By Mouth, Daily, Kittitian, # 90 tablet, 4 Refills, Maintenance, 06/13/20 14:25:00 EDT, Tablet, [facility], 180, cm, 06/13/20 14:06:00 EDT, Height, 88.9, kg, 07/06/18 20:39:00 EDT, Dry Weight Start Date: 06/13/20 Stop Date: 09/06/21 Status: Ordered folic acid 1 mg oral tablet 1 mg, 1, tablet, By Mouth, Daily, Take daily <YI>, # 30 tablet, Refills 5, Tot. Refills 5, Maintenance, 03/28/20 14:39:00 EDT, Route to Pharmacy Electronically, [facility],180, cm, 12/01/19 9:06:00 EST, Height, 88.9, [...] Injection, Daily at bedtime, please label in new zealander, # 10 mL, 11 Refills,Maintenance, 06/13/20 14:28:00 EDT, Solution, [facility], please label in new zealander, 180, cm, 06/13/20 14:06:00 EDT, Height, 88.9, [...] Mouth, 2 times a day, with meals, Kittitian label, dose increase, # 180 tablet, 4 Refills, Maintenance, 06/13/20 14:27:00 EDT, Tablet, [facility], 180, cm, 06/13/20 14:06:00 EDT, Height, 88.9, kg, 07/06/18 20:39:0... Start Date: 06/13/20 Stop Date: 09/06/21 Status: Ordered methotrexate 2.5 mg oral tablet See Instructions, CONOR 6 TABLETAS CADA SEMANA CADA MIERCOLES, # 24 tablet, 9 Refills, Soft Stop, 01/26/20 9:28:00 EDT, [facility] 180, cm, 12/01/19 9:06:00 EST, Height, 88.9, kg, 07/06/18 20:39:00 EDT, Dry Weight Start Date: 01/26/20 Status: Ordered naproxen 500 mg oral tablet 1 tablet = 500 mg, By Mouth, 2 times a day, with food, prn pain, take with food, # 60 tablet, 0 Refills, Maintenance, 06/13/20 14:29:00 EDT, Tablet, [facility] 180, cm, 06/13/20 14:06:00 EDT, Height, 88.9, kg, 07/06/18 20:39:00 EDT, D... Start Date: 06/13/20 Status: Ordered omeprazole 40 mg oral enteric coated capsule 1 capsule = 40 mg, By Mouth, Daily, # 30 capsule, 2 Refills, Maintenance, 04/18/20 11:52:00 EDT, ECCapsule, [facility] 180, cm, 12/01/19 9:06:00 EST, [...]
--- OUTSIDE RECORDS SUMMARY | 2023-08-09 18:27 | XMS_ITS | Continuity of Care Document ---
Author Name Unknown Organization [facility] Address [address] [place] [address]- Care Team Providers Care Care Consultant Name Role Phone Manpreet Cohen MD Primary Care Physician [phone] Encounter [facility] R [id number] Date(s): 12/01/19 - 12/11/19 [facility] [address] [place] [address]- Attending Physician: Maren Chew Admitting Physician: AdmtrMaren Referring Physician: AdmtrMaren Allergies, Adverse Reactions, Alerts Substance Reaction Severity Status NKA Active Immunizations Given and Recorded Vaccine Date Status Refusal Reason tetanus/diphtheria/pertussis, acel(Tdap) 03/26/19 Given pneumococcal 23-valent vaccine 03/26/19 Given Medications atorvastatin 20 mg oral tablet 1 tablet = 20 mg, By Mouth, Daily, # 30 tablet, 3 Refills, Maintenance, 10/25/19 15:06:00 EST, Tablet, [facility], 180, cm, 10/25/19 14:25:00 EST, Height, 88.9, [...] 10/05/19 15:54:56 EST, Route to Pharmacy Electronically, [id number], [facility] 180, cm, 03/26/19 9... Start Date: [...] Injection, Daily at bedtime, please label in stateless, # 10 mL, 11 Refills,Maintenance, 03/26/19 9:42:30 EDT, Solution, please label in stateless Start Date: 03/26/19 Status: Ordered Insulin Syringe, [...] Refills, Soft Stop, 10/25/19 15:11:00 EST, Cream, [facility] 1 application Topically Once, 180, cm, 10/25/19 14:25:00 EST, Height, 88.9, kg, 07/06/18 20:39:00 EDT, Dry Weight Start Date: 10/25/19 Status: Ordered metFORMIN 500 mg oral tablet 1 tablet = 500 mg, By Mouth, 2 times a day, with meals, Mosotho, # 60 tablet, 11 Refills, Maintenance, 03/26/19 [...] 2 Refills, Maintenance, 11/01/19 11:54:00 EST, ECCapsule, [facility], 180, cm, 10/25/19 14:25:00 EST, Height, 88.9, kg, 07/06/18 20:39:00 EDT, Dry Weight Start Date: 11/01/19 Status: Ordered predniSONE 5 mg oral tablet 1 tablet = 5 mg, By Mouth, Daily, instructions in stateless, # 30 tablet, 0 Refills, Maintenance, 09/13/19 [...]
== END 2023-08-09 18:27 | disposition home or self-care (01) ==
LOC: HO.ED 18:25
PROVIDERS: Emergency Provider Emergency Medicine
DX: M19.90 Unspecified osteoarthritis, unspecified site (principal); M79.89 Other specified soft tissue disorders; M25.512 Pain in left shoulder; I10 Essential (primary) hypertension; E78.5 Hyperlipidemia, unspecified; E11.9 Type 2 diabetes mellitus without complications; Z79.4 Long term (current) use of insulin
CPT/HCPCS: 99282; 99283

== ENCOUNTER 2024-03-17 10:37 | Outpatient (AMB) | payer OTHER, SELFPAY ==
[2024-03-17 10:46] VITALS: BP 112/78; PULSE 82; O2SAT 98; BMI 25.6
--- NOTE | 2024-03-17 10:46 | A.OFFVIS_ITS ---
Vital Signs 3 03/17/24 10:46 Height 5 ft 11 in Weight 183 lb 13.848 oz BMI 25.6 BP 112/78 Blood Pressure Location Rt brachial Position Sitting Pulse 82 Pulse Oximetry (%) 98 Intake Visit Reasons: RA Intake Note: New patient presents today for RA consult. C/o multiple joint pain and swelling that began about 5 years ago. Used to be on MTX but is unable to provide info on when it was last used. Reports prednisone is the only medication that helps. Recruiting Associate Required: Yes Recruiting Associate Language: Emergency Care Attendant Name: GODWIN Ray/FRANTZ Information Interpreted: clinical only Accompanied by: Self / Same As Patient Allergies No Known Allergies Allergy (Verified 08/09/23 17:53) Medication List - Last Reconciled 03/17/24 by Lisa Tamayo MD atorvastatin 40 mg PO DAILY capsaicin 0.025% 1 appl topical BID diclofenac sodium 1% (Voltaren Arthritis Pain) 4 grams topical QID famotidine 40 mg PO DAILY folic acid 1 mg PO DAILY insulin glargine (Lantus U-100 Insulin) units subcut metformin 1,000 mg PO BID naproxen 500 mg PO BID omeprazole 40 mg PO BID valsartan 80 mg PO DAILY HPI Comments Details: This is a 63-year-old male with seropositive RA who presents as a new patient. Patient was diagnosed with seropositive RA around 2019. He saw Dr. Rosado. He states that he was on methotrexate for approximately 3 years, he was lost to follow-up. He has not been on methotrexate over the last 2 years. He has been on prednisone regularly. Used to take 20 mg Twice daily but recently he has been on 10 mg Twice daily. Continues to have bilateral hand pain and swelling worse on the left as well as bilateral ankle and foot pain worse on the left. He is unaware of any family history of an autoimmune rheumatic disease. Denies any fevers. FORMERLY [facility], [facility] Medical History Chronic joint pain Rheumatoid arthritis Type 2 diabetes mellitus Social History Alcohol intake: current Alcohol intake frequency: a few times a week Alcohol type: beer Patient Tobacco Use Status: Former Tobacco user Current occupational status: unemployed Review of Systems [facility] [place] Reports deformity, Reports arthralgias, Reports joint swelling and Reports stiffness Physical Exam Vital Signs: Last Vital Signs Pulse 82 03/17/24 10:46 BP 112/78 03/17/24 10:46 Pulse Ox 98 03/17/24 10:46 BMI result Body Mass Index 25.6 Const General: cooperative, healthy appearing, comfortable and no acute distress Nutritional Appearance: average body habitus Orientation/consciousness: patient oriented x3 Limitations: no limitations HEENT Head: Yes normocephalic and Yes atraumatic Mouth: moist mucous membranes Resp Effort & Inspection: normal respiratory effort and able to speak in complete sentences Auscultation: clear to auscultation bilaterally Cardio Rate: regular rate Rhythm: regular rhythm Skin General skin exam: no rashes or lesions noted Neuro General: patient oriented x3 Extrem Other: Patient essentially has diffuse synovitis of both hands, both ankles and feet. It is more severe on the left hand and left ankle and foot Assessment & Plan Assessment & Plan (1) Rheumatoid arthritis: Comment: ++RF CCp unknown dx approx 2019 MTX 2020 -2021. lost to f/u on PDN throughout Code(s): M06.9 - Rheumatoid arthritis, unspecified Category: Medical Qualifiers: Rheumatoid arthritis location: multiple sites Rheumatoid factor presence: with rheumatoid factor Qualified Code(s): M05.79 - Rheumatoid arthritis with rheumatoid factor of multiple sites without organ or systems involvement Plan: This is a 63-year-old male with seropositive RA who presents as a new patient. Patient was diagnosed approximately in 2019. He was started on methotrexate in 2020. States that he has not been on methotrexate for 3 years. Apparently he was lost to follow-up. He has been on prednisone consistent with the and HB A1c is 10.9% On exam he has diffuse synovitis. Discussed with patient that we need to lower his prednisone dose as much as possible and discontinue it over time. Will need to start a DMARD. Discussed risks and benefits of methotrexate. Start methotrexate 20 mg weekly plus folic acid 1 mg daily. Reduce prednisone to 15 mg daily after 1 month. On exam he has diffuse synovitis even on prednisone 20 mg. I can not discontinue his prednisone today as he will likely have a significant flare-up and could end up in the emergency room. Labs today and before next visit in 2 months Check x-rays of involved joints (2) termite inspector methotrexate user: Code(s): Z79.631 - termite inspector (current) use of antimetabolite agent Category: Medical Plan: Monitor safety lab (3) Hepatitis B core antibody positive: Code(s): R76.8 - Other specified abnormal immunological findings in serum Category: Medical Plan: Previous labs showed a positive hepatitis-B core antibody. Will check hepatitis panel and hepatitis-B viral load (4) Hyperglycemia: Code(s): R73.9 - Hyperglycemia, unspecified Category: Medical Plan: Uncontrolled diabetes mellitus. Most recent HbA1c 10.9%. Discussed the need to lower his prednisone as mentioned above Plan I spent 47 minutes reviewing patient's chart, evaluating patient, ordering diagnostic workup, counseling patient and documenting in the chart Orders: Orders 2 Complete Blood Count Auto Diff Today M06.9 - Rheumatoid arthritis, unspecified C Reactive Protein Today M06.9 - Rheumatoid arthritis, unspecified Erythrocyte Sedimentation Rate Today M06.9 - Rheumatoid arthritis, unspecified Hepatitis A,B,C Profile Today Z11.59 - Encounter for screening for other viral diseases Immunofixation Pnl, Serum Today M06.9 - Rheumatoid arthritis, unspecified Cyclic Citrullinated Peptide Today M06.9 - Rheumatoid arthritis, unspecified Complement C4 Today M32.9 - Systemic lupus erythematosus, unspecified Sjogren's Antibodies Today M32.9 - Systemic lupus erythematosus, unspecified UA w Microscopic Today M32.9 - Systemic lupus erythematosus, unspecified Complete Blood Count Auto Diff 2 Months Z79.631 - termite inspector (current) use of antimetabolite agent Comprehensive Met. Panel 2 Months Z79.631 - nursing home (current) use of antimetabolite agent Erythrocyte Sedimentation Rate 2 Months Z79.631 - termite inspector (current) use of antimetabolite agent XR ankle LT min 3V Today M06.9 - Rheumatoid arthritis, unspecified Comprehensive Met. Panel Today M06.9 - Rheumatoid arthritis, unspecified Hepatitis B Viral DNA Qn Today B19.10 - Unspecified viral hepatitis B without hepatic coma Protein Electrophoresis, Serum Today M06.9 - Rheumatoid arthritis, unspecified T Spot TB Today Z11.7 - Encounter for testing for latent tuberculosis infection LIYA Reflex Titer and Pattern Today M32.9 - Systemic lupus erythematosus, unspecified Anti Extractable Nuclear Ag Today M32.9 - Systemic lupus erythematosus, unspecified Anti DNA DS Antibody Today M32.9 - Systemic lupus erythematosus, unspecified Complement C3 Today M32.9 - Systemic lupus erythematosus, unspecified DNA Double Stranded-Crithidia Today M32.9 - Systemic lupus erythematosus, unspecified Protein Creatinine Ratio, Ur Today M32.9 - Systemic lupus erythematosus, unspecified C Reactive Protein 2 Months Z79.631 - nursing home (current) use of antimetabolite agent XR hand wrist LT Today M06.9 - Rheumatoid arthritis, unspecified XR hand wrist RT Today M06.9 - Rheumatoid arthritis, unspecified XR ankle RT min 3V Today M06.9 - Rheumatoid arthritis, unspecified XR foot LT min 3V Today M06.9 - Rheumatoid arthritis, unspecified XR foot RT min 3V Today M06.9 - Rheumatoid arthritis, unspecified Medications: New 2 folic acid 1 mg PO DAILY 90 tabs 1RF methotrexate sodium 20 mg (8 x 2.5 mg) PO QWEEK 64 tabs 0RF prednisone 10 mg PO BID 60 tabs 1RF Coding Level of Care Code New Pt Level 4 (97810) Diagnoses Rheumatoid arthritis involving multiple sites with positive rheumatoid factor M05.79 Rheumatoid arthritis location: multiple sites Rheumatoid factor presence: with rheumatoid factor nursing home methotrexate user Z79.631 Hepatitis B core antibody positive R76.8 Hyperglycemia R73.9
== END 2024-03-17 11:48 | disposition home or self-care (01) ==
PROVIDERS: PCP Internal Medicine; Visit Provider Student in an Organized Health Care Education/Training Program
DX: M05.79 Rheumatoid arthritis with rheumatoid factor of multiple sites without organ or systems involvement (principal); Z79.631 Long term (current) use of antimetabolite agent; R76.8 Other specified abnormal immunological findings in serum; R73.9 Hyperglycemia, unspecified
CPT/HCPCS: 99204

== ENCOUNTER 2024-03-17 10:37 | Outpatient (REF) | payer OTHER, SELFPAY ==
--- NOTE | ~2024-03-17 | XR_ITS ---
EXAMINATION: XR BILATERAL HANDS XR BILATERAL WRISTS XR BILATERAL FEET XR BILATERAL ANKLES CLINICAL INFORMATION: Rheumatoid arthritis. COMPARISON: None. TECHNIQUE: Four views of the right and left hand and wrist. Three views of the right and left ankles. Three views of the left and right feet. FINDINGS: Right hand and wrist: Prominent scaphoid tubercle compatible with normal variation or old fracture. First metacarpophalangeal joint: There is joint space narrowing and possible small marginal osteophytes. There is capsular calcification/ossification involving the third and fourth DIP joints. There are no marginal erosions. There are no additional soft tissue calcifications or ossifications. Left hand and wrist: Distal radioulnar joint: There are marginal osteophytes indicative of [id number] osteoarthritis. There is increased bone formation along the distal aspect of the ulna perhaps related to old fracture. This results in the ulnar styloid not being well defined. First metacarpophalangeal joint: Tiny subchondral cyst in the metatarsal head. Joint otherwise unremarkable. Scattered capsular calcification/ossifications about some of the interphalangeal joints. No joint space narrowing or definite marginal osteophytes. Right ankle and foot: Probable mild osteoarthritis of the third and fourth DIP joints manifested by marginal osteophytes and possible subchondral cysts. No marginal erosions. Left ankle and foot: Probable mild osteoarthritis of the third DIP joint manifested by small marginal osteophytes. Minimal capsular ossification/calcification about the second PIP joint. No marginal erosions. The ulnar styloid is not well defined. XR/XR foot LT min 3V IMPRESSION: 1. No specific radiographic findings indicative of inflammatory arthropathy. 2. 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 3. Left hand and wrist: Mild osteoarthritis of the distal radioulnar joint. Slight increase bone formation along the distal aspect of the abnormal perhaps related to old fracture. 4. Right ankle and foot: Probable mild osteoarthritis of the third and fourth DIP joints. 5. Left ankle and foot: Mild osteoarthritis of the third DIP joint.
--- NOTE | ~2024-03-17 | XR_ITS ---
EXAMINATION: XR BILATERAL HANDS XR BILATERAL WRISTS XR BILATERAL FEET XR BILATERAL ANKLES CLINICAL INFORMATION: Rheumatoid arthritis. COMPARISON: None. TECHNIQUE: Four views of the right and left hand and wrist. Three views of the right and left ankles. Three views of the left and right feet. FINDINGS: Right hand and wrist: Prominent scaphoid tubercle compatible with normal variation or old fracture. First metacarpophalangeal joint: There is joint space narrowing and possible small marginal osteophytes. There is capsular calcification/ossification involving the third and fourth DIP joints. There are no marginal erosions. There are no additional soft tissue calcifications or ossifications. Left hand and wrist: Distal radioulnar joint: There are marginal osteophytes indicative of [id number] osteoarthritis. There is increased bone formation along the distal aspect of the ulna perhaps related to old fracture. This results in the ulnar styloid not being well defined. First metacarpophalangeal joint: Tiny subchondral cyst in the metatarsal head. Joint otherwise unremarkable. Scattered capsular calcification/ossifications about some of the interphalangeal joints. No joint space narrowing or definite marginal osteophytes. Right ankle and foot: Probable mild osteoarthritis of the third and fourth DIP joints manifested by marginal osteophytes and possible subchondral cysts. No marginal erosions. Left ankle and foot: Probable mild osteoarthritis of the third DIP joint manifested by small marginal osteophytes. Minimal capsular ossification/calcification about the second PIP joint. No marginal erosions. The ulnar styloid is not well defined. XR/XR ankle LT min 3V IMPRESSION: 1. No specific radiographic findings indicative of inflammatory arthropathy. 2. 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 3. Left hand and wrist: Mild osteoarthritis of the distal radioulnar joint. Slight increase bone formation along the distal aspect of the abnormal perhaps related to old fracture. 4. Right ankle and foot: Probable mild osteoarthritis of the third and fourth DIP joints. 5. Left ankle and foot: Mild osteoarthritis of the third DIP joint.
--- NOTE | ~2024-03-17 | XR_ITS ---
EXAMINATION: XR BILATERAL HANDS XR BILATERAL WRISTS XR BILATERAL FEET XR BILATERAL ANKLES CLINICAL INFORMATION: Rheumatoid arthritis. COMPARISON: None. TECHNIQUE: Four views of the right and left hand and wrist. Three views of the right and left ankles. Three views of the left and right feet. FINDINGS: Right hand and wrist: Prominent scaphoid tubercle compatible with normal variation or old fracture. First metacarpophalangeal joint: There is joint space narrowing and possible small marginal osteophytes. There is capsular calcification/ossification involving the third and fourth DIP joints. There are no marginal erosions. There are no additional soft tissue calcifications or ossifications. Left hand and wrist: Distal radioulnar joint: There are marginal osteophytes indicative of [id number] osteoarthritis. There is increased bone formation along the distal aspect of the ulna perhaps related to old fracture. This results in the ulnar styloid not being well defined. First metacarpophalangeal joint: Tiny subchondral cyst in the metatarsal head. Joint otherwise unremarkable. Scattered capsular calcification/ossifications about some of the interphalangeal joints. No joint space narrowing or definite marginal osteophytes. Right ankle and foot: Probable mild osteoarthritis of the third and fourth DIP joints manifested by marginal osteophytes and possible subchondral cysts. No marginal erosions. Left ankle and foot: Probable mild osteoarthritis of the third DIP joint manifested by small marginal osteophytes. Minimal capsular ossification/calcification about the second PIP joint. No marginal erosions. The ulnar styloid is not well defined. XR/XR foot RT min 3V IMPRESSION: 1. No specific radiographic findings indicative of inflammatory arthropathy. 2. 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 3. Left hand and wrist: Mild osteoarthritis of the distal radioulnar joint. Slight increase bone formation along the distal aspect of the abnormal perhaps related to old fracture. 4. Right ankle and foot: Probable mild osteoarthritis of the third and fourth DIP joints. 5. Left ankle and foot: Mild osteoarthritis of the third DIP joint.
--- NOTE | ~2024-03-17 | XR_ITS ---
EXAMINATION: XR BILATERAL HANDS XR BILATERAL WRISTS XR BILATERAL FEET XR BILATERAL ANKLES CLINICAL INFORMATION: Rheumatoid arthritis. COMPARISON: None. TECHNIQUE: Four views of the right and left hand and wrist. Three views of the right and left ankles. Three views of the left and right feet. FINDINGS: Right hand and wrist: Prominent scaphoid tubercle compatible with normal variation or old fracture. First metacarpophalangeal joint: There is joint space narrowing and possible small marginal osteophytes. There is capsular calcification/ossification involving the third and fourth DIP joints. There are no marginal erosions. There are no additional soft tissue calcifications or ossifications. Left hand and wrist: Distal radioulnar joint: There are marginal osteophytes indicative of [id number] osteoarthritis. There is increased bone formation along the distal aspect of the ulna perhaps related to old fracture. This results in the ulnar styloid not being well defined. First metacarpophalangeal joint: Tiny subchondral cyst in the metatarsal head. Joint otherwise unremarkable. Scattered capsular calcification/ossifications about some of the interphalangeal joints. No joint space narrowing or definite marginal osteophytes. Right ankle and foot: Probable mild osteoarthritis of the third and fourth DIP joints manifested by marginal osteophytes and possible subchondral cysts. No marginal erosions. Left ankle and foot: Probable mild osteoarthritis of the third DIP joint manifested by small marginal osteophytes. Minimal capsular ossification/calcification about the second PIP joint. No marginal erosions. The ulnar styloid is not well defined. XR/XR hand wrist RT IMPRESSION: 1. No specific radiographic findings indicative of inflammatory arthropathy. 2. 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 3. Left hand and wrist: Mild osteoarthritis of the distal radioulnar joint. Slight increase bone formation along the distal aspect of the abnormal perhaps related to old fracture. 4. Right ankle and foot: Probable mild osteoarthritis of the third and fourth DIP joints. 5. Left ankle and foot: Mild osteoarthritis of the third DIP joint.
--- NOTE | ~2024-03-17 | XR_ITS ---
EXAMINATION: XR BILATERAL HANDS XR BILATERAL WRISTS XR BILATERAL FEET XR BILATERAL ANKLES CLINICAL INFORMATION: Rheumatoid arthritis. COMPARISON: None. TECHNIQUE: Four views of the right and left hand and wrist. Three views of the right and left ankles. Three views of the left and right feet. FINDINGS: Right hand and wrist: Prominent scaphoid tubercle compatible with normal variation or old fracture. First metacarpophalangeal joint: There is joint space narrowing and possible small marginal osteophytes. There is capsular calcification/ossification involving the third and fourth DIP joints. There are no marginal erosions. There are no additional soft tissue calcifications or ossifications. Left hand and wrist: Distal radioulnar joint: There are marginal osteophytes indicative of [id number] osteoarthritis. There is increased bone formation along the distal aspect of the ulna perhaps related to old fracture. This results in the ulnar styloid not being well defined. First metacarpophalangeal joint: Tiny subchondral cyst in the metatarsal head. Joint otherwise unremarkable. Scattered capsular calcification/ossifications about some of the interphalangeal joints. No joint space narrowing or definite marginal osteophytes. Right ankle and foot: Probable mild osteoarthritis of the third and fourth DIP joints manifested by marginal osteophytes and possible subchondral cysts. No marginal erosions. Left ankle and foot: Probable mild osteoarthritis of the third DIP joint manifested by small marginal osteophytes. Minimal capsular ossification/calcification about the second PIP joint. No marginal erosions. The ulnar styloid is not well defined. XR/XR hand wrist LT IMPRESSION: 1. No specific radiographic findings indicative of inflammatory arthropathy. 2. 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 3. Left hand and wrist: Mild osteoarthritis of the distal radioulnar joint. Slight increase bone formation along the distal aspect of the abnormal perhaps related to old fracture. 4. Right ankle and foot: Probable mild osteoarthritis of the third and fourth DIP joints. 5. Left ankle and foot: Mild osteoarthritis of the third DIP joint.
--- NOTE | ~2024-03-17 | XR_ITS ---
EXAMINATION: XR BILATERAL HANDS XR BILATERAL WRISTS XR BILATERAL FEET XR BILATERAL ANKLES CLINICAL INFORMATION: Rheumatoid arthritis. COMPARISON: None. TECHNIQUE: Four views of the right and left hand and wrist. Three views of the right and left ankles. Three views of the left and right feet. FINDINGS: Right hand and wrist: Prominent scaphoid tubercle compatible with normal variation or old fracture. First metacarpophalangeal joint: There is joint space narrowing and possible small marginal osteophytes. There is capsular calcification/ossification involving the third and fourth DIP joints. There are no marginal erosions. There are no additional soft tissue calcifications or ossifications. Left hand and wrist: Distal radioulnar joint: There are marginal osteophytes indicative of fahh-[id number] osteoarthritis. There is increased bone formation along the distal aspect of the ulna perhaps related to old fracture. This results in the ulnar styloid not being well defined. First metacarpophalangeal joint: Tiny subchondral cyst in the metatarsal head. Joint otherwise unremarkable. Scattered capsular calcification/ossifications about some of the interphalangeal joints. No joint space narrowing or definite marginal osteophytes. Right ankle and foot: Probable mild osteoarthritis of the third and fourth DIP joints manifested by marginal osteophytes and possible subchondral cysts. No marginal erosions. Left ankle and foot: Probable mild osteoarthritis of the third DIP joint manifested by small marginal osteophytes. Minimal capsular ossification/calcification about the second PIP joint. No marginal erosions. The ulnar styloid is not well defined. XR/XR ankle RT min 3V IMPRESSION: 1. No specific radiographic findings indicative of inflammatory arthropathy. 2. 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 3. Left hand and wrist: Mild osteoarthritis of the distal radioulnar joint. Slight increase bone formation along the distal aspect of the abnormal perhaps related to old fracture. 4. Right ankle and foot: Probable mild osteoarthritis of the third and fourth DIP joints. 5. Left ankle and foot: Mild osteoarthritis of the third DIP joint.
[2024-03-17 11:46] LABS: MANUAL DIFF FLAG NO
[2024-03-17 12:01] LABS: Appearance Urine Clear; Color Urine Yellow; Glucose Urine UA >=1000 mg/dL (Negative); Leukocyte Esterase Urine Negative (Negative); Nitrite Urine Negative (Negative); Specific Gravity - Urine 1.025 (1.005-1.025); UMIC TRIGGER UA YES; Urine Blood Negative (Negative); Urine Ketones Negative (Negative); Urine Protein Negative (Neg-Trace)
[2024-03-17 12:06] LABS: Bacteria Urine None Seen (None Seen); Hyaline Casts Urine 0-2 /LPF (0-2); RBC Urine 0-2 /HPF (0-2); Squamous Epithelial Cell Urine 0-2 /HPF (0-2); WBC Urine 0-5 /HPF (0-5)
[2024-03-17 12:14] LABS: Basophils Percent Auto 0.3 % (0-2); Eosinophils Absolute Auto 0.2 X10*3/uL (0.0-0.4); Hematocrit 36.5 % (42.0-52.0); Hemoglobin 12.1 g/dl (14.0-18.0); Imm Gran Abs Auto 0.03 X10*3/uL (0.00-0.03); Imm Gran Pct Auto 0.5 % (0.0-0.4); Lymphocytes Absolute Auto 0.9 X10*3/uL (1.2-4.9); Lymphocytes Percent Auto 15.2 % (20-40); Mean Corpuscular HGB Conc 33.2 g/dl (31.0-36.0); Mean Corpuscular Hemoglobin 31.4 pg (27.0-33.0); Mean Corpuscular Volume 94.8 fL (80.0-98.0); Mean Platelet Volume 11.4 fL (9.4-12.4); Monocytes Absolute Auto 0.5 X10*3/uL (0.1-1.2); Monocytes Percent Auto 8.4 % (2-11); Neutrophils Absolute Auto 4.3 x10*3/uL (2.0-8.3); Neutrophils Percent Auto 71.6 % (45-73); Platelet Count 233 X10*3/uL (160-400); Red Blood Count 3.85 X10*6/uL (4.60-5.80); Red Cell Distribution Width 12.3 % (11.0-16.0)
[2024-03-17 12:41] LABS: Creatinine Urine 32.26 mg/dL; Total Protein Urine Random < 7 mg/dL (<12)
[2024-03-17 13:01] LABS: Erythrocyte Sedimentation Rate 10 MM/HR (0-15)
[2024-03-17 13:14] LABS: Alanine Aminotransferase 21 U/L (0-40); Alkaline Phosphatase 74 U/L (39-117); Anion Gap 12 (12-20); Aspartate Amino Transferase 16 U/L (5-37); Bilirubin Total 0.4 mg/dL (0.0-1.0); Blood Urea Nitrogen 10 mg/dL (9-16); C Reactive Protein 0.39 mg/dL (< or = 0.50); Carbon Dioxide 26 mmol/L (22-29); Chloride 105 mmol/L (96-108); Estimated Glomerular Filt Rate > 60; Glucose Random 366 mg/dL (60-115); Potassium 4.9 mmol/L (3.3-5.1); Sodium 138 mmol/L (135-145); Total Protein 6.6 g/dL (6.5-8.0)
[2024-03-18 04:43] LABS: HBS Num1 > 1000.00 mIU/mL (0-7.99); HBsAGNum1 0.38 S/CO (0.00-0.99); Hepatitis A Antibody IgM 0.38 Index (0-0.79); Hepatitis B Surface Antigen Negative (Negative); ~HepC Num1 0.11 S/CO (0.00-0.79); ~Hepatitis A Antibody IgM Nonreactive (Nonreactive); ~Hepatitis B Surface Antibody REACTIVE (Nonreactive); ~Hepatitis C Antibody Nonreactive (Nonreactive)
[2024-03-18 05:42] LABS: HBc Num2 4.82 S/CO; HBc Num3 4.95 S/CO; Hepatitis B Core Antibody Reactive (Nonreactive)
[2024-03-18 12:04] LABS: Hepatitis B Viral DNA Qn - cp NOT DETECTED Log IU/mL (NOT DETECTED); Hepatitis B Viral DNA Qn-IU/mL NOT DETECTED (NOT DETECTED)
[2024-03-18 14:44] LABS: Complement C3 62 mg/dL (82-185)
[2024-03-18 22:53] LABS: Prot Elec - Alpha1 0.2 g/dL (0.2-0.3); Prot Elec - Alpha2 0.7 g/dL (0.5-0.9); Prot Elec - Beta 1 0.4 g/dL (0.4-0.6); Prot Elec - Beta 2 0.4 g/dL (0.2-0.5); Prot Elec - Gamma 0.9 g/dL (0.8-1.7); Prot Elec - Total Protein 6.6 g/dL (6.1-8.1)
[2024-03-19 08:27] LABS: Anti DNA DS Antibody <1 IU/mL; Antibody to SS-A Antigen <1.0 NEG AI (<1.0 NEG); Antibody to SS-B Antigen <1.0 NEG AI (<1.0 NEG); SM/Ribonucleoprotein Ab <1.0 NEG AI (<1.0 NEG); Smith Protein <1.0 NEG AI (<1.0 NEG)
[2024-03-19 15:43] LABS: Cyclic Citrullinated Peptide >250 UNITS
[2024-03-19 16:17] LABS: Anti Nuclear Antibody Screen NEGATIVE (NEGATIVE)
[2024-03-20 06:43] LABS: TS Negative Control Passed; TS Panel A 1; TS Panel B 1; TS Positive Control Passed; TSpotTB Negative (Negative)
[2024-03-23 14:18] LABS: IgA 156 mg/dL (70-320); IgG 999 mg/dL (600-1540); IgM 117 mg/dL (50-300)
[2024-03-24 13:58] LABS: DNAds, Crithidia Antibody Negative (Negative)
== END 2024-03-17 10:38 | disposition home or self-care (01) ==
LOC: HO.LAB 10:37
PROVIDERS: PCP Internal Medicine; Visit Provider Student in an Organized Health Care Education/Training Program
DX: Z11.59 Encounter for screening for other viral diseases (principal); Z11.7 Encounter for testing for latent tuberculosis infection; B19.10 Unspecified viral hepatitis B without hepatic coma; M32.9 Systemic lupus erythematosus, unspecified; M05.79 Rheumatoid arthritis with rheumatoid factor of multiple sites without organ or systems involvement; R76.8 Other specified abnormal immunological findings in serum; R73.9 Hyperglycemia, unspecified; Z79.631 Long term (current) use of antimetabolite agent
CPT/HCPCS: 36415; 73110; 73130; 73610; 73630; 80053; 81001; 82570; 82784; 84156; 84165; 85025; 85652; 86038; 86140; 86160; 86200; 86225; 86235; 86255; 86334; 86481; 86704; 86706; 86709; 86803; 87340; 87517; 99202

== ENCOUNTER 2024-05-21 09:33 | Outpatient (REF) | payer OTHER, SELFPAY ==
[2024-05-21 09:42] LABS: MANUAL DIFF FLAG NO
[2024-05-21 10:09] LABS: Basophils Percent Auto 0.5 % (0-2); Eosinophils Absolute Auto 0.1 X10*3/uL (0.0-0.4); Eosinophils Percent Auto 1.1 % (0-4); Hematocrit 37.6 % (42.0-52.0); Hemoglobin 13.1 g/dl (14.0-18.0); Imm Gran Abs Auto 0.03 X10*3/uL (0.00-0.03); Imm Gran Pct Auto 0.5 % (0.0-0.4); Lymphocytes Absolute Auto 1.5 X10*3/uL (1.2-4.9); Lymphocytes Percent Auto 26.9 % (20-40); Mean Corpuscular HGB Conc 34.8 g/dl (31.0-36.0); Mean Corpuscular Hemoglobin 32.7 pg (27.0-33.0); Mean Corpuscular Volume 93.8 fL (80.0-98.0); Mean Platelet Volume 11.4 fL (9.4-12.4); Monocytes Absolute Auto 0.6 X10*3/uL (0.1-1.2); Monocytes Percent Auto 9.7 % (2-11); Neutrophils Absolute Auto 3.5 x10*3/uL (2.0-8.3); Neutrophils Percent Auto 61.3 % (45-73); Platelet Count 243 X10*3/uL (160-400); Red Blood Count 4.01 X10*6/uL (4.60-5.80); Red Cell Distribution Width 12.1 % (11.0-16.0); White Blood Count 5.7 X10*3/uL (4.8-10.8)
[2024-05-21 10:48] LABS: Erythrocyte Sedimentation Rate 6 MM/HR (0-15)
[2024-05-21 11:06] LABS: Alanine Aminotransferase 17 U/L (0-40); Albumin Level 4.4 g/dL (3.5-5.0); Alkaline Phosphatase 78 U/L (39-117); Anion Gap 11 (12-20); Aspartate Amino Transferase 12 U/L (5-37); Bilirubin Total 0.6 mg/dL (0.0-1.0); Blood Urea Nitrogen 17 mg/dL (9-16); C Reactive Protein < 0.10 mg/dL (< or = 0.50); Calcium 9.4 mg/dL (8.4-10.2); Carbon Dioxide 25 mmol/L (22-29); Chloride 104 mmol/L (96-108); Estimated Glomerular Filt Rate > 60; Glucose Random 262 mg/dL (60-115); Potassium 4.4 mmol/L (3.3-5.1); Sodium 136 mmol/L (135-145); Total Protein 7.1 g/dL (6.5-8.0)
== END 2024-05-21 09:34 | disposition home or self-care (01) ==
LOC: HO.LAB 09:33
PROVIDERS: PCP Internal Medicine; Visit Provider Student in an Organized Health Care Education/Training Program
DX: Z79.631 Long term (current) use of antimetabolite agent (principal)
CPT/HCPCS: 36415; 80053; 85025; 85652; 86140

== ENCOUNTER 2024-05-26 09:51 | Outpatient (AMB) | payer OTHER, SELFPAY ==
[2024-05-26 09:57] VITALS: BP 122/70; PULSE 68; O2SAT 96; BMI 25.5
--- NOTE | 2024-05-26 09:57 | A.OFFVIS_ITS ---
Vital Signs 05/26/24 09:57 Height 5 ft 11 in Weight 182 lb 8.684 oz BMI 25.5 BP 122/70 Blood Pressure Location Lt brachial Position Sitting Pulse 68 Pulse Source Pulse Oximeter Pulse Oximetry (%) 96 Oxygen Delivery Method Room Air Intake Visit Reasons: RA/cm Intake Note: Patient last seen on 03/17/24 present today for follow up and test results. Patient is requesting refill of Prednisone today. Tour Leader Services: Tour Leader Present Tour Leader Name: Marco Antonio Lewis [id number] Allergies No Known Allergies Allergy (Verified 05/26/24 10:02) Medication List - Last Reconciled 05/26/24 by Lisa Tamayo MD atorvastatin 40 mg PO DAILY capsaicin 0.025% 1 appl topical BID diclofenac sodium 1% (Voltaren Arthritis Pain) 4 grams topical QID famotidine 40 mg PO DAILY folic acid 1 mg PO DAILY insulin glargine (Lantus U-100 Insulin) units subcut metformin 1,000 mg PO BID methotrexate sodium 20 mg (8 x 2.5 mg) PO QWEEK naproxen 500 mg PO BID omeprazole 40 mg PO BID prednisone 10 mg PO BID valsartan 80 mg PO DAILY HPI Comments Details: 63-year-old male with seropositive RA returns for follow-up. After last visit patient started taking methotrexate 8 tabs weekly, he took it for 1 month then ran out. He was not been 2 month supply like I prescribed. States that methotrexate was helpful with improved pain and swelling of his hands, since he ran out of methotrexate he started having more pain and swelling again, he has been taking prednisone 20 mg daily now. Today he is complaining of mild left ankle pain Initial history: This is a 63-year-old male with seropositive RA who presents as a new patient. Patient was diagnosed with seropositive RA around 2020. He saw Dr. Rosado. He states that he was on methotrexate for approximately 2 years, he was lost to follow-up. He has not been on methotrexate over the last 2 years. He has been on prednisone regularly. Used to take 20 mg Twice daily but recently he has been on 10 mg Twice daily. Continues to have bilateral hand pain and swelling worse on the left as well as bilateral ankle and foot pain worse on the left. He is unaware of any family history of an autoimmune rheumatic disease. Denies any fevers. [facility] Medical History Chronic joint pain Rheumatoid arthritis Type 2 diabetes mellitus Social History Alcohol intake: current Alcohol intake frequency: a few times a week Alcohol type: beer Patient Tobacco Use Status: Former Tobacco user Current occupational status: unemployed Review of Systems [employer] Reports arthralgias, Denies joint swelling and Reports stiffness Physical Exam Vital Signs: Last Vital Signs Pulse 68 05/26/24 09:57 BP 122/70 05/26/24 09:57 Pulse Ox 96 05/26/24 09:57 Oxygen Delivery Method Room Air 05/26/24 09:57 BMI result Body Mass Index 25.5 Const General: cooperative, healthy appearing, comfortable and no acute distress Nutritional Appearance: average body habitus Orientation/consciousness: patient oriented x3 Limitations: no limitations HEENT Head: Yes normocephalic and Yes atraumatic Mouth: moist mucous membranes Resp Effort & Inspection: normal respiratory effort and able to speak in complete sentences Auscultation: clear to auscultation bilaterally Cardio Rate: regular rate Rhythm: regular rhythm Skin General skin exam: no rashes or lesions noted Neuro General: patient oriented x3 Extrem Other: Synovitis of both hands and wrists resolved Normal range of motion of elbows and shoulders without pain No knee pain with flexion-extension Mild left ankle tenderness without significant swelling Assessment & Plan Assessment & Plan (1) Rheumatoid arthritis: Comment: ++RF CCp unknown dx approx 2020 MTX 2020 -2021. lost to f/u on PDN throughout MTX restarted 02/2024 Code(s): M06.9 - Rheumatoid arthritis, unspecified Category: Medical Qualifiers: Rheumatoid arthritis location: multiple sites Rheumatoid factor presence: with rheumatoid factor Qualified Code(s): M05.79 - Rheumatoid arthritis with rheumatoid factor of multiple sites without organ or systems involvement Plan: This is a 63-year-old male with seropositive RA who presents for follow-up. Patient started taking methotrexate 20 mg weekly after last visit but only one- month was dispensed by the pharmacy rather than 2 months. There is significant improvement in his bilateral hand synovitis but now that patient ran out of the methotrexate about a month ago he restarted prednisone 20 mg daily Advised patient on the importance of compliance with methotrexate and call our office if he is unable to obtain the medication Restart methotrexate 20 mg weekly plus folic acid 1 mg daily Reduce prednisone to 15 mg daily for 1 month then remain on 10 mg daily Labs before next visit in 3 months (2) shelter methotrexate user: Code(s): Z79.631 - shelter (current) use of antimetabolite agent Category: Medical Plan: Monitor safety lab (3) Hepatitis B core antibody positive: Code(s): R76.8 - Other specified abnormal immunological findings in serum Category: Medical Plan: Labs show a positive hepatitis-B core antibody with negative viral load. If patient requires a biologic DMARD I will refer patient to Infectious Disease for recommendations (4) Hyperglycemia: Code(s): R73.9 - Hyperglycemia, unspecified Category: Medical Plan: Uncontrolled diabetes mellitus. Most recent HbA1c 10.9%. Discussed the need to lower his prednisone as mentioned above Plan I spent 27 minutes reviewing patient's chart, evaluating patient, ordering diagnostic workup, counseling patient and documenting in the chart Orders: Orders Complete Blood Count Auto Diff 3 Months M05.79 - Rheumatoid arthritis with rheumatoid factor of multiple sites without organ or systems involvement, Z79.631 - intermediate project manager (current) use of antimetabolite agent Comprehensive Met. Panel 3 Months M05.79 - Rheumatoid arthritis with rheumatoid factor of multiple sites without organ or systems involvement, Z79.631 - shelter (current) use of antimetabolite agent C Reactive Protein 3 Months M05.79 - Rheumatoid arthritis with rheumatoid factor of multiple sites without organ or systems involvement, Z79.631 - intermediate project manager (current) use of antimetabolite agent Erythrocyte Sedimentation Rate 3 Months M05.79 - Rheumatoid arthritis with rheumatoid factor of multiple sites without organ or systems involvement, Z79.631 - intermediate project manager (current) use of antimetabolite agent Hemoglobin A1c 3 Months E11.9 - Type 2 diabetes mellitus without complications Medications: New prednisone Take 3 tabs daily for 1 month then remain on 2 tabs daily 210 tabs 0RF Refilled methotrexate sodium 20 mg (8 x 2.5 mg) PO QWEEK 96 tabs 0RF Discontinued prednisone Discontinued Reason: Doctor's Order 10 mg PO BID 60 tabs 1RF Coding Level of Care Code Est Pt Level 4 (83538) Diagnoses Rheumatoid arthritis involving multiple sites with positive rheumatoid factor M05.79 Rheumatoid arthritis location: multiple sites Rheumatoid factor presence: with rheumatoid factor shelter methotrexate user Z79.631 Hepatitis B core antibody positive R76.8 Hyperglycemia R73.9
== END 2024-05-26 10:32 | disposition home or self-care (01) ==
PROVIDERS: PCP Internal Medicine; Visit Provider Student in an Organized Health Care Education/Training Program
DX: M05.79 Rheumatoid arthritis with rheumatoid factor of multiple sites without organ or systems involvement (principal); Z79.631 Long term (current) use of antimetabolite agent; R76.8 Other specified abnormal immunological findings in serum; R73.9 Hyperglycemia, unspecified
CPT/HCPCS: 99214

== ENCOUNTER → 2024-05-26 09:51 | Outpatient (BNVA) | payer OTHER, SELFPAY | PROVIDERS: PCP Internal Medicine; Visit Provider Student in an Organized Health Care Education/Training Program | DX: M05.79 Rheumatoid arthritis with rheumatoid factor of multiple sites without organ or systems involvement (principal); R76.8 Other specified abnormal immunological findings in serum; R73.9 Hyperglycemia, unspecified; Z79.631 Long term (current) use of antimetabolite agent | CPT/HCPCS: 99212 ==

== ENCOUNTER 2024-08-24 15:36 | Outpatient (REF) | payer OTHER, SELFPAY ==
[2024-08-24 16:01] LABS: MANUAL DIFF FLAG NO
[2024-08-24 16:38] LABS: Basophils Percent Auto 0.6 % (0-2); Eosinophils Absolute Auto 0.1 X10*3/uL (0.0-0.4); Eosinophils Percent Auto 2.9 % (0-4); Hematocrit 35.4 % (42.0-52.0); Hemoglobin 12.2 g/dl (14.0-18.0); Imm Gran Abs Auto 0.01 X10*3/uL (0.00-0.03); Imm Gran Pct Auto 0.2 % (0.0-0.4); Lymphocytes Absolute Auto 0.7 X10*3/uL (1.2-4.9); Lymphocytes Percent Auto 13.9 % (20-40); Mean Corpuscular HGB Conc 34.5 g/dl (31.0-36.0); Mean Corpuscular Hemoglobin 32.6 pg (27.0-33.0); Mean Corpuscular Volume 94.7 fL (80.0-98.0); Mean Platelet Volume 11.3 fL (9.4-12.4); Monocytes Absolute Auto 0.4 X10*3/uL (0.1-1.2); Monocytes Percent Auto 7.8 % (2-11); Neutrophils Absolute Auto 3.6 x10*3/uL (2.0-8.3); Neutrophils Percent Auto 74.6 % (45-73); Platelet Count 207 X10*3/uL (160-400); Red Blood Count 3.74 X10*6/uL (4.60-5.80); Red Cell Distribution Width 11.9 % (11.0-16.0); White Blood Count 4.8 X10*3/uL (4.8-10.8)
[2024-08-24 16:43] LABS: Estimated Average Glucose 278 mg/dL; Hemoglobin A1C 315.4851 umol/L; Hemoglobin A1c % 11.3 % (<6.0); Total Hemoglobin (HGBA1C) 3171.1455 umol/L
[2024-08-24 16:49] LABS: Alanine Aminotransferase 32 U/L (0-40); Alkaline Phosphatase 59 U/L (39-117); Anion Gap 11 (12-20); Aspartate Amino Transferase 21 U/L (5-37); Bilirubin Total 0.3 mg/dL (0.0-1.0); Blood Urea Nitrogen 18 mg/dL (9-16); C Reactive Protein < 0.10 mg/dL (< or = 0.50); Carbon Dioxide 25 mmol/L (22-29); Chloride 104 mmol/L (96-108); Estimated Glomerular Filt Rate 58; Potassium 5.1 mmol/L (3.3-5.1); Sodium 135 mmol/L (135-145); Total Protein 6.1 g/dL (6.5-8.0)
[2024-08-24 17:08] LABS: Glucose Random 484 mg/dL (60-115)
[2024-08-24 17:39] LABS: Erythrocyte Sedimentation Rate 5 MM/HR (0-15)
== END 2024-08-24 15:37 | disposition home or self-care (01) ==
LOC: HO.LAB 15:36
PROVIDERS: PCP Internal Medicine; Visit Provider Student in an Organized Health Care Education/Training Program
DX: M05.79 Rheumatoid arthritis with rheumatoid factor of multiple sites without organ or systems involvement (principal); E11.9 Type 2 diabetes mellitus without complications; Z79.631 Long term (current) use of antimetabolite agent
CPT/HCPCS: 36415; 80053; 83036; 85025; 85652; 86140

== ENCOUNTER 2024-08-26 10:26 | Outpatient (AMB) | payer OTHER, SELFPAY ==
[2024-08-26 10:32] VITALS: BP 136/64; PULSE 71; O2SAT 98; BMI 25.6
--- NOTE | 2024-08-26 10:32 | A.OFFVIS_ITS ---
Vital Signs 08/26/24 10:32 Height 5 ft 11 in Weight 183 lb 10.321 oz BMI 25.6 BP 136/64 Blood Pressure Location Lt brachial Position Sitting Pulse 71 Pulse Source Pulse Oximeter Pulse Oximetry (%) 98 Oxygen Delivery Method Room Air Intake Visit Reasons: RA/lm Intake Note: Patient last seen by Doctor Lisa Tamayo on 05/26/24. Presents today for RA follow up and test results.? Solutions Specialist Name: Rj [id number] Allergies No Known Allergies Allergy (Verified 08/26/24 10:39) Medication List - Last Reconciled 08/26/24 by Lisa Tamayo MD atorvastatin 40 mg PO DAILY capsaicin 0.025% 1 appl topical BID diclofenac sodium 1% (Voltaren Arthritis Pain) 4 grams topical QID famotidine 40 mg PO DAILY folic acid 1 mg PO DAILY insulin glargine (Lantus U-100 Insulin) units subcut metformin 1,000 mg PO BID methotrexate sodium 20 mg (8 x 2.5 mg) PO QWEEK naproxen 500 mg PO BID omeprazole 40 mg PO BID prednisone Take 3 tabs daily for 2 weeks then 2 tabs daily for 2 weeks then remain on 1 tab daily valsartan 80 mg PO DAILY HPI Comments Details: 64-year-old male with seropositive RA returns for follow-up. He ran out of methotrexate about 2 weeks ago. He is having minimal aching pain in his hands. He states that when he was taking methotrexate he was feeling quite well overall. He is on prednisone 10 mg daily. No other complaints today Initial history: This is a 63-year-old male with seropositive RA who presents as a new patient. Patient was diagnosed with seropositive RA around 2020. He saw Dr. Rosado. He states that he was on methotrexate for approximately 2 years, he was lost to follow-up. He has not been on methotrexate over the last 2 years. He has been on prednisone regularly. Used to take 20 mg Twice daily but recently he has been on 10 mg Twice daily. Continues to have bilateral hand pain and swelling worse on the left as well as bilateral ankle and foot pain worse on the left. He is unaware of any family history of an autoimmune rheumatic disease. Denies any fevers. [facility] Medical History Chronic joint pain Rheumatoid arthritis Type 2 diabetes mellitus Social History Alcohol intake: current Alcohol intake frequency: a few times a week Alcohol type: beer Patient Tobacco Use Status: Former Tobacco user Current occupational status: unemployed Review of Systems [facility] [employer] [facility] [place] Reports arthralgias, Denies joint swelling and Reports stiffness Physical Exam Vital Signs: Last Vital Signs Pulse 71 08/26/24 10:32 BP 136/64 08/26/24 10:32 Pulse Ox 98 08/26/24 10:32 Oxygen Delivery Method Room Air 08/26/24 10:32 BMI result Body Mass Index 25.6 Const General: cooperative, healthy appearing, comfortable and no acute distress Nutritional Appearance: average body habitus Orientation/consciousness: patient oriented x3 Limitations: no limitations HEENT Head: Yes normocephalic and Yes atraumatic Mouth: moist mucous membranes Resp Effort & Inspection: normal respiratory effort and able to speak in complete sentences Auscultation: clear to auscultation bilaterally Cardio Rate: regular rate Rhythm: regular rhythm Skin General skin exam: no rashes or lesions noted Neuro General: patient oriented x3 Extrem Other: No wrist swelling, tenderness or pain with flexion-extension bilaterally No MCP or PIP tenderness or swelling right hand Normal right hand gallery intern strength Mild left 3rd MCP swelling without tenderness Left 3rd and 4th PIP tenderness without swelling No elbow pain with flexion-extension bilaterally Normal pain-free range of motion of shoulders bilaterally No knee pain with full flexion-extension bilaterally Assessment & Plan Assessment & Plan (1) Rheumatoid arthritis: Comment: ++RF CCp unknown dx approx 2019 MTX 2020 -2021. lost to f/u on PDN throughout MTX restarted 02/2024 effective Code(s): M06.9 - Rheumatoid arthritis, unspecified Category: Medical Qualifiers: Rheumatoid arthritis location: multiple sites Rheumatoid factor presence: with rheumatoid factor Qualified Code(s): M05.79 - Rheumatoid arthritis with rheumatoid factor of multiple sites without organ or systems involvement Plan: This is a 64-year-old male with seropositive RA who presents for follow-up. RA much better controlled on methotrexate 20 mg weekly plus folic acid 1 mg daily Reduce prednisone to 7.5 mg daily for 2 weeks then 5 mg daily for 2 weeks then remain on 2.5 mg daily Labs before next visit in 3 months (2) third helper methotrexate user: Code(s): Z79.631 - intermediate (current) use of antimetabolite agent Category: Medical Plan: Monitor safety labs (3) Hepatitis B core antibody positive: Code(s): R76.8 - Other specified abnormal immunological findings in serum Category: Medical Plan: Labs show a positive hepatitis-B core antibody with negative viral load. If patient requires a biologic DMARD I will refer patient to Infectious Disease for recommendations (4) Hyperglycemia: Code(s): R73.9 - Hyperglycemia, unspecified Category: Medical Plan: Uncontrolled diabetes mellitus. Most recent HbA1c 11.3%. Discussed the need to lower his prednisone as mentioned above. Follow-up with PCP Plan I spent 27 minutes reviewing patient's chart, evaluating patient, ordering diagnostic workup, counseling patient and documenting in the chart Orders: Orders Complete Blood Count Auto Diff 3 Months M05.79 - Rheumatoid arthritis with rheumatoid factor of multiple sites without organ or systems involvement Comprehensive Met. Panel 3 Months M05.79 - Rheumatoid arthritis with rheumatoid factor of multiple sites without organ or systems involvement Erythrocyte Sedimentation Rate 3 Months M05.79 - Rheumatoid arthritis with rheumatoid factor of multiple sites without organ or systems involvement C Reactive Protein 3 Months M05.79 - Rheumatoid arthritis with rheumatoid factor of multiple sites without organ or systems involvement Hemoglobin A1c 3 Months E11.9 - Type 2 diabetes mellitus without complications Medications: New prednisone Take 3 tabs daily for 2 weeks then 2 tabs daily for 2 weeks then remain on 1 tab daily 130 tabs 0RF Refilled methotrexate sodium 20 mg (8 x 2.5 mg) PO QWEEK 96 tabs 1RF folic acid 1 mg PO DAILY 90 tabs 1RF Discontinued prednisone Discontinued Reason: Doctor's Order Take 3 tabs daily for 1 month then remain on 2 tabs daily 210 tabs 0RF Coding Level of Care Code Est Pt Level 4 (59048) Complex EM visit Add On G2211 Diagnoses Rheumatoid arthritis involving multiple sites with positive rheumatoid factor M05.79 Rheumatoid arthritis location: multiple sites Rheumatoid factor presence: with rheumatoid factor intermediate methotrexate user Z79.631 Hepatitis B core antibody positive R76.8 Hyperglycemia R73.9
== END 2024-08-26 10:59 | disposition home or self-care (01) ==
LOC: HO.RHE 10:27
PROVIDERS: PCP Internal Medicine; Visit Provider Student in an Organized Health Care Education/Training Program
DX: M05.79 Rheumatoid arthritis with rheumatoid factor of multiple sites without organ or systems involvement (principal); Z79.631 Long term (current) use of antimetabolite agent; R76.8 Other specified abnormal immunological findings in serum; R73.9 Hyperglycemia, unspecified
CPT/HCPCS: 99214; G2211

== ENCOUNTER → 2024-08-26 10:26 | Outpatient (BNVA) | payer OTHER, SELFPAY | PROVIDERS: PCP Internal Medicine; Visit Provider Student in an Organized Health Care Education/Training Program | DX: M05.79 Rheumatoid arthritis with rheumatoid factor of multiple sites without organ or systems involvement (principal); R76.8 Other specified abnormal immunological findings in serum; R73.9 Hyperglycemia, unspecified; Z79.631 Long term (current) use of antimetabolite agent | CPT/HCPCS: 99212 ==

== ENCOUNTER 2024-11-22 07:58 | Outpatient (REF) | payer OTHER, SELFPAY ==
--- OUTSIDE RECORDS SUMMARY | 2024-11-22 08:05 | XMS_ITS | Clinical Summary ---
Author Organization [facility] Address [address] [place] [address] Phone Care Team Providers Care Crane Follower Name Role Phone Krysta Sarmiento MD Primary Care Provider [phone] Allergies No known active allergies Medications Medication Sig Dispensed Refills Start Date End Date Status lancets (OneTouch Delica Plus Lancet) 30 gaugeIndications:Ty pe 2 diabetes mellitus without complications ([facility]) USE UP TO 3 TIMES A DAY 100 each 3 08/30/2024 Active naproxen (NAPROSYN) 500 mg tablet TAKE 1 TABLET BY MOUTH TWICE A DAY WITH MEALS 60 tablet 4 09/03/2024 Active metFORMIN (GLUCOPHAGE) 1,000 mg tablet Take 1 tablet (1,000 mg total) by mouth 2 (two) times a day with meals. 180 tablet 11/02/2024 Active metFORMIN (GLUCOPHAGE) 1,000 mg tablet Take 1 tablet (1,000 mg total) by mouth 2 (two) times a day with meals. 01/19/2024 11/02/2024 Discontinued (Reorder) Encounters Date Type Department Care Team Description 11/17/2024 6:30 PM EST - 11/17/2024 8:12 PM EST Emergency [facility] Emergency [address] [place] [address] Viral pharyngitis (Primary Dx); Encounter to obtain excuse from work Discharge Disposition: Home or Self Care from Last 3 Months Medical History Medical History Date Comments Seropositive rheumatoid arth ritis (CMS/HCC) 06/27/2021 DX:Seropositive rheumatoid a rthritis (HCC) Diabetes mellitus (CMS/HCC) 06/27/2021 DX:D iabetes mellitus (HCC) Social History Tobacco Use Types Packs/Day Years Used Date Smoking Tobacco: Never Smokeless Tobacco: Never Alcohol Use Standard Drinks/Week Comments Yes 2 (1 standard drink = 0.6 oz pur e alcohol) Sex and Gender Information Value Date Recorded Sex Assigned at Male 11/17/2024 7:56 PM EST Gender Identity Male 11/17/2024 7:56 PM EST Sexual Orientation Straight 11/17/2024 7: 56 PM EST Job Start Date Occupation Industry Not on file Not on file Not on file Obstetrics History Last Filed Vital Signs Vital Sign Reading Time Taken Comments Blood Pressure 125/75 11/17/2024 5:57 PM EST Pulse 96 11/17/2024 5:57 PM EST Temperature 37.2 ??C (99 ??F) 11/17/2024 5:57 PM EST Respiratory Rate 20 11/17/2024 5:57 PM EST Oxygen Saturation 97% 11/17/2024 5:57 PM EST Inhaled Oxygen Concentration - - Weight 83.9 kg (185 lb) 11/17/2024 5:57 PM EST Height 177.8 cm (5' 10 ) 11/17/2024 5:57 PM EST Body Mass Index 26.54 11/17/2024 5:57 PM EST Plan of Treatment Health Maintenance Due Date Last Done Comments Diabetes: Annual GFR (Glomerular Filtration Rate) 1961 Pneumococcal Vaccine: Pediatrics (0 to 5 Years) and At-Risk Patients (6 to 64 Years) (1 of 2 - PCV) 1967 Diabetes: Annual Foot Exam 1971 Diabetes: Annual Retina Eye Exam 1971 DTaP,Tdap,and Td Vaccines (1 - Tdap) 1980 Zoster Vaccines (1 of 2) 2011 RSV Immunization Patients 60 + Years Old (1 - Risk 60-74 years 1-dose series) 2021 Cholesterol Screening (Lipid Panel) 09/24/2022 Colorectal Cancer Screening: Colonoscopy 09/24/2022 Depression Screening 09/24/2022 HIV Screening 09/24/2022 Social Influencers of Health Screening 09/24/2022 Diabetes: Annual Urine Albumin-Creatinine Ratio (uACR) 10/11/2022 Diabetes: Blood Sugar Contro l Test (HGBA1C) 10/11/2022 Hypertension/CHF/CAD Annual BMP Blood Test 05/21/2024 COVID-19 Vaccine (2023-2 5 season) 2024 11/14/2021, 03/03/2021, 02/11/2021 Influenza Vaccine (#1) 2024 Hepatitis C Screening Completed 10/07/2022 HIB Vaccines Aged Out No longer eligi ble based on patient's age to complete this topic HPV Vaccines Aged Out No longer eligi ble based on patient's age to complete this topic Hepatitis A Vaccines Aged Out No long er eligible based on patient's age to complete this topic Hepatitis B Vaccines Aged Out No long er eligible based on patient's age to complete this topic IPV Vaccines Aged Out No longer eligi ble based on patient's age to complete this topic MMR Vaccines Aged Out No longer eligi ble based on patient's age to complete this topic Meningococcal ACWY Vaccine Aged Out N o longer eligible based on patient's age to complete this topic RSV Immunization Patients Under 20 months Aged Out No longer eligible b ased on patient's age to complete this topic Varicella Vaccines Aged Out No longer eligible based on patient's age to complete this topic Procedures Procedure Name Priority Date/Time Associated Diagnosis Comments CULTURE THROAT STAT 11/17/2024 6:02 PM EST RAPID STREP A SCREEN STAT 11/17/2024 6:02 PM EST from Last 3 Months Results * Rapid strep A screen (11/17/2024 6:02 PM EST) Strep A Ag Negative Negative, Invalid 11/17/2024 6:51 PM EST [facility] Comment:Refer to Throat Cult ure. Swab Structure of anterior portion of neck / Unknown Non-blood Collection / Unknown 11/17/2024 6:02 PM EST 11/17/2024 6:32 PM EST Estuardo Seay DO LAB MICROBIOLOGY - G ENERAL ORDERABLES [facility] [address] [place] [address], [place] [phone] * Culture throat (11/17/2024 6:02 PM EST) Culture, Throat No pathogens isolated. 11/19/2024 2:04 PM EST [facility] Swab Structure of anterior portion of neck / Unknown Non-blood Collection / Unknown 11/17/2024 6:02 PM EST 11/17/2024 6:32 PM EST Estuardo Seay DO LAB MICROBIOLOGY - G ENERAL ORDERABLES [facility] [address] [place] [address], [place] [phone] from Last 3 Months Care Teams Crane Follower Relationship Specialty Start Date End Date Krysta Sarmiento MD [address] [facility] [address] [place] [address] PCP - General 09/10/23
--- OUTSIDE RECORDS SUMMARY | 2024-11-22 08:05 | XMS_ITS | Encounter Summary ---
Author Organization [place] [address] Care Team Providers Care Weigher Alloy Name Role Phone Krysta Sarmiento MD Primary Care Provider [phone] Reason for Visit * Reason Comments Sore Throat Sorethroat, fevers, body aches resolved x1 week Encounter Details Date Type Department Care Team (Late st Contact Info) Description 11/17/2024 6:30 PM EST - 11/17/2024 8:[address] [facility] Emergency [address] [place] [phone] Viral pharyngitis (Primary Dx); Encounter to obtain excuse from work Discharge Disposition: Home or Self Care Social History Tobacco Use Types Packs/Day Years [...] file Not on file Not on file documented as of this encounter Last Filed Vital Signs Vital Sign Reading [...] Mass Index 26.54 11/17/2024 5:57 PM EST documented in this encounter Discharge Instructions * Discharge Instructions* CRISTIANE Leal - 11/17/2024 7:43 PM EST You were seen in the ER today for flulike symptoms that are mostly resolved. I believe it is likely that you likely had a virus that is the cause of your symptoms. Please be sure to get plenty of rest and stay hydrated with fluids. If you develop a fever you may take Tylenolor ibuprofen. You may take Tylenol and ibuprofen in general for your aches and pains. You may also take [id number] cold medications. Please be aware that many of them do contain Tylenol (acetaminophen) so please be sure to read the ingredients that you are not taking too much Tylenol. Please return to the ER if you experience any high fevers, sensation of throat closure or swelling in throat, shortness of breath, chest pain, or any other reason you see fit. It was a pleasure caring for you today in the emergency department. Please return to the emergency department if you begin to experience any new onset chest pain, shortness of breath, uncontrolled fevers, severe abdominal pain, loss of consciousness, uncontrolled vomiting, uncontrolled diarrhea, or for any other reason you feel is necessary. Please follow-up with your PCP about this visit. Examination and treatment you received in the emergency department has been rendered on an EMERGENCY basis only. It is not intended to be a substitute for or an effort to provide complete medical care. You should follow-up with your primary care provider. Please report to your physician any new or remaining problems, because it is impossible to recognize and treat all elements of injury or illness in a single emergency department visit. If you do not have a primary care provider or require a referral, a follow-up doctor infection control specialist for the emergency department will be provided in your discharge packet. In the event that you're unable to obtain a followup appointment in a timely fashion, OR you are not getting any better, OR you are getting worse, OR you develop any symptoms of concern, please return here immediately for further evaluation. The emergency department is open 24 hours a day, 7 days aweek. Your discharge report is based on information that was available when you were in the emergency department If you do not have a primary care provider, please contact one of the following to make arrangements to follow up. Karey Johnson Karey Hicks Karey Chino Karey Reyes * Attachments The following attachments cannot be sent through Care Everywhere. * Sore Throat (Angolan) documented in this encounter Medications at Time of Discharge Medication Sig Dispensed Refills Start Date End Date lancets (OneTouch Delica Plus Lancet) 30 gaugeIndications:Type 2 diabetes mellitus without complications ([facility]) USE UP TO 3 TIMES A DAY 100 each 3 08/30/2024 metFORMIN (GLUCOPHAGE) 1,000 mg tablet Take 1 tablet (1,000 mg total) by mouth 2 (two) times a day with meals. 180 tablet 11/02/2024 naproxen (NAPROSYN) 500 mg tablet TAKE 1 TABLET BY MOUTH TWICE A DAY WITH MEALS 60 tablet 4 09/03/2024 documented as of this encounter Discharge Disposition Disposition Code Departure Means Destination Comment s Home or Self Care documented in this encounter Progress Notes * Vishnu Baldwin RN - 11/17/2024 8:11 PM EST Pt discharged home, encouraged to follow up with PCP, no RX given. All instructions understood prior to discharge. * Rajani Rajan RN - 11/17/2024 4:50 PM EST PT to ED with flu like symptoms, denies vomiting and diarrhea. PT denies abd pain. PT well appearing, primary complaints sorethroat since Friday * CRISTIANE Leal - 11/17/2024 4:48 PM EST Emergency Medicine Note Patient Name: Yfn Vargas Initial Evaluation: 11/17/2024 : 1960 Patient's PCP: Krysta Sarmiento MD Emergency Physician: CRISTIANE Leal History of Present Illness Chief Complaint: Chief Complaint Patient presents with ??? Sore Throat Sorethroat, fevers, body aches resolved x1 week HPI: 64-year-old male patient presented to the ER today with flulike symptoms that have since resolved requesting a work note to return to work. Patient reports his symptoms started on Friday and that he had a fever and chills along with bodyaches and sore throat. He reports he is feeling better togo back to work tomorrow and just wants a work note excusing him. Denies any other complaints at this time. Denies chest pain shortness of breath nausea vomiting diarrhea or abdominal pain. ROS: I have performed a ROS with the pertinent positives and negatives documented in the history ofpresent illness. Previous History Past Medical History: Diagnosis Date ??? Diabetes mellitus ([facility]) 06/27/2021 DX:Diabetes mellitus (HCC) ??? Seropositive rheumatoid arthritis (CMS/HCC) 06/27/2021 DX:Seropositive rheumatoid arthritis ([facility]) History reviewed. No pertinent surgical history. Social History Tobacco Use ??? Smoking status: Never ??? Smokeless tobacco: Never Substance Use Topics ??? Alcohol use: Yes Alcohol/week: 2.0 standard drinks of alcohol ??? Drug use: Never No family history on file. has No Known Allergies. No current facility-administered medications on file prior to encounter. Current Outpatient Medications on File Prior to Encounter Medication Sig Dispense Refill ??? lancets (OneTouch Delica Plus Lancet) 30 gauge USE UP TO 3 TIMES A DAY 100 each 3 ??? metFORMIN (GLUCOPHAGE) 1,000 mg tablet Take 1 tablet (1,000 mg total) by mouth 2 (two) times a day with meals. 180 tablet 0 ??? naproxen (NAPROSYN) 500 mg tablet TAKE 1 TABLET BY MOUTH TWICE A DAY WITH MEALS 60 tablet 4 Physical Exam Physical Exam Constitutional: General: He is not in acute distress. Appearance: Normal appearance. He is not ill-appearing, toxic-appearing or diaphoretic. HENT: Head: Normocephalic and atraumatic. Mouth/Throat: Mouth: Mucous membranes are moist. Pharynx: No oropharyngeal exudate or posterior oropharyngeal erythema. Eyes: Extraocular Movements: Extraocular movements intact. Pupils: Pupils are equal, round, and reactive to light. Pulmonary: Effort: Pulmonary effort is normal. Skin: General: Skin is warm. Neurological: General: No focal deficit present. Mental Status: He is alert and oriented to person, place, and time. Mental status is at baseline. Psychiatric: Mood and Affect: Mood normal. Behavior: Behavior normal. Thought Content: Thought content normal. Judgment: Judgment normal. ED Triage Vitals [11/17/24 1757] Temp Heart Rate Resp BP 37.2 ??C (99 ??F) 96 20 125/75 SpO2 Temp Source Heart Rate Source Patient Position 97 % Oral Monitor Sitting BP Location FiO2 (%) Left arm -- Results Labs Reviewed RAPID STREP A SCREEN - Normal Result Value Strep A Ag Negative CULTURE THROAT Abnormal Labs Reviewed - No abnormal labs to display No orders to display I have discussed the incidental/abnormal imaging and/or lab abnormalities with the patient and haveinstructed them the need for further evaluation and workup with their primary care doctor. I have provided the patient with a paper copy of the abnormality. The laboratory results, imaging results and other diagnostic exam results were reviewed in the EMR. EKG Interpretation Critical Care Time None Medical Decision Making Medications - No data to display Medical Decision Making Differential diagnose include but not limited to: Need for work note COVID Pharyngitis Strep Other viral illness URI In short 64-year-old male patient who had flulike symptoms earlier this week presenting for work note to clear him to go back to work. On arrival vitals are stable patient afebrile. Patient sitting comfortably in chair, nontoxic and in no acute distress, hemodynamically stable. Patient has lingering symptoms from the likely viral syndrome but otherwise has no complaints at this time. Will write work note and discharge home. Patient given strict return precautions and agreeswith plan. Clinical Impressions as of 11/17/241942 Viral pharyngitis Encounter to obtain excuse from work Procedures Procedures Diagnosis No diagnosis found. Disposition Data Unavailable ED Prescriptions None Physician Attestation CRISTIANE Leal 11/17/241942 CRISTIANE Leal 11/17/241943 documented in this encounter Plan of Treatment Not on file documented as of this encounter Procedures Procedure Name Priority Date/Time Associated Diagnosis Comments RAPID STREP A SCREEN STAT 11/17/2024 6:02 PM EST CULTURE THROAT STAT 11/17/2024 6:02 PM EST documented in this encounter Results * Culture throat (11/17/2024 6:02 PM EST) Culture, Throat No pathogens isolated. 11/19/2024 2:04 PM EST [facility] Swab Structure of anterior portion of neck / Unknown Non-blood Collection / Unknown 11/17/2024 6:02 PM EST 11/17/2024 6:32 PM EST Estuardo Seay DO LAB MICROBIOLOGY - G ENERAL ORDERABLES Performing Organization Address City/[facility]/ZIP Co de Phone Number [facility] [address] [place] [address], [place] [phone] * Rapid strep A screen (11/17/2024 6:02 PM EST) Strep A Ag Negative Negative, Invalid 11/17/2024 6:51 PM EST [facility] Comment:Refer to Throat Cult ure. Swab Structure of anterior portion of neck / Unknown Non-blood Collection / Unknown 11/17/2024 6:02 PM EST 11/17/2024 6:32 PM EST Estuardo Seay DO LAB MICROBIOLOGY - G ENERAL ORDERABLES [facility] [address] [place] [address], [place] [phone] documented in this encounter Visit Diagnoses Diagnosis Viral pharyngitis- Primary Acute pharyngitis Encounter to obtain excuse from work documented in this encounter Care Teams Weigher Alloy Relationship Specialty Start Date End Date Krysta Sarmiento MD [address] [place], [place] [phone] PCP - General 09/10/23 documented as of this encounter
--- OUTSIDE RECORDS SUMMARY | 2024-11-22 08:05 | XMS_ITS | Patient Health Record ---
Author Organization [facility] Address [address] [place] [phone] Care Team Providers Care Instrumentation And Control Technician Name Role Phone Alejandro Byers Unavailable [phone] Alma Antonio Unavailable [phone] Allergies No Known Allergies Reason For Referral No Information Medications Medication SIG (Take, Route, Fr equency, Duration) Notes Start Date End Date Status valsartan Active predniSONE 10 mg 1 tab(s) orally once a day Active folic acid Active atorvastatin Active famotidine Active naproxen Active Lantus Active metFORMIN Active Encounters Encounter Location Date Provider Diagnosis [address] [phone] 11/02/2024 Alma Antonio [facility] [address] [place] [phone] 08/24/2024 Alejandro Byers Plan Of Treatment Next Appt Details Provider Name:Alma saeed, 12/01/2024 02:00:00 PM, [address] [place] [address], [phone], Insurance Providers Payer Name Payer Address Payer Phone Subscriber Number Group Number Insured Name Patient Relationship to Insured Coverage Start Date Coverage End Date [employer] [facility] [address] [place] [phone] [id number] LIMITED Yfn Soto Self - patient is the insured [employer] [address] [place] [phone] [id number] Yfn Soto Self - patient is the insured Medical (General) History Medical History History ICD Code Arthritis Diabetes Type 2
--- OUTSIDE RECORDS SUMMARY | 2024-11-22 08:05 | XMS_ITS ---
Author Organization [facility] Address [address] [place] [phone] Care Team Providers Care [employer]cre[employer] Name Role Phone Alejandro Byers [phone] REASON FOR VISIT Appt request Encounters Encounter Location Date Provider Diagnosis [facility] [address] [place] [phone] 08/24/2024 Alejandro Byers Plan Of Treatment Next Appt Details Provider Name:Alma saeed, 12/01/2024 02:00:00 PM, [address] [place] [address], [phone], Progress Notes * Yfn SOTODOB: (64 yo M)Acc No.[id number]:08/24/2024 Patient:?Daily SOTO :1960???Age:64 Y???Sex:Male Address:[address], [place], [address] * * Date:?
[2024-11-22 08:19] LABS: MANUAL DIFF FLAG NO
[2024-11-22 08:53] LABS: Basophils Percent Auto 0.6 % (0-2); Eosinophils Absolute Auto 0.4 X10*3/uL (0.0-0.4); Eosinophils Percent Auto 6.8 % (0-4); Hematocrit 39.1 % (42.0-52.0); Hemoglobin 13.4 g/dl (14.0-18.0); Imm Gran Abs Auto 0.08 X10*3/uL (0.00-0.03); Imm Gran Pct Auto 1.5 % (0.0-0.4); Lymphocytes Absolute Auto 1.5 X10*3/uL (1.2-4.9); Lymphocytes Percent Auto 26.9 % (20-40); Mean Corpuscular HGB Conc 34.3 g/dl (31.0-36.0); Mean Corpuscular Hemoglobin 31.8 pg (27.0-33.0); Mean Corpuscular Volume 92.9 fL (80.0-98.0); Mean Platelet Volume 10.7 fL (9.4-12.4); Monocytes Absolute Auto 0.7 X10*3/uL (0.1-1.2); Monocytes Percent Auto 12.9 % (2-11); Neutrophils Absolute Auto 2.8 x10*3/uL (2.0-8.3); Neutrophils Percent Auto 51.3 % (45-73); Platelet Count 358 X10*3/uL (160-400); Red Blood Count 4.21 X10*6/uL (4.60-5.80); Red Cell Distribution Width 11.6 % (11.0-16.0); White Blood Count 5.4 X10*3/uL (4.8-10.8)
[2024-11-22 08:56] LABS: Estimated Average Glucose 243 mg/dL; Hemoglobin A1C 304.9997 umol/L; Hemoglobin A1c % 10.1 % (<6.0); Total Hemoglobin (HGBA1C) 3522.2308 umol/L
[2024-11-22 09:29] LABS: Erythrocyte Sedimentation Rate 25 MM/HR (0-15)
[2024-11-22 09:49] LABS: Alanine Aminotransferase 48 U/L (0-40); Albumin Level 4.3 g/dL (3.5-5.0); Alkaline Phosphatase 88 U/L (39-117); Anion Gap 11 (12-20); Aspartate Amino Transferase 25 U/L (5-37); Bilirubin Total 0.5 mg/dL (0.0-1.0); Blood Urea Nitrogen 16 mg/dL (9-16); C Reactive Protein 0.42 mg/dL (< or = 0.50); Calcium 9.3 mg/dL (8.4-10.2); Carbon Dioxide 27 mmol/L (22-29); Chloride 103 mmol/L (96-108); Estimated Glomerular Filt Rate > 60; Glucose Random 228 mg/dL (60-115); Potassium 4.1 mmol/L (3.3-5.1); Sodium 137 mmol/L (135-145); Total Protein 7.6 g/dL (6.5-8.0)
== END 2024-11-22 07:59 | disposition home or self-care (01) ==
LOC: HO.LAB 07:58
PROVIDERS: PCP Internal Medicine; Visit Provider Student in an Organized Health Care Education/Training Program
DX: M05.79 Rheumatoid arthritis with rheumatoid factor of multiple sites without organ or systems involvement (principal); E11.9 Type 2 diabetes mellitus without complications
CPT/HCPCS: 36415; 80053; 83036; 85025; 85652; 86140

== ENCOUNTER 2024-11-26 10:15 | Outpatient (AMB) | payer OTHER, SELFPAY ==
--- NOTE | 2024-11-26 10:23 | MHC.OFFVIS ---
Vital Signs 11/26/24 10:28 Height 5 ft 11 in Weight 179 lb 14.355 oz BMI 25.1 BP 115/70 Blood Pressure Location Lt brachial Position Sitting Pulse 72 Pulse Source Pulse Oximeter Pulse Oximetry (%) 97 Oxygen Delivery Method Room Air Intake Visit Reasons: RA Intake Note: Patient presents for RA. Veterinarian Laboratory Animal Care Required: Yes Veterinarian Laboratory Animal Care Language: Sleeping Room Cleaner Services: Veterinarian Laboratory Animal Care Present Veterinarian Laboratory Animal Care Name: Leila [id number] Information Interpreted: non-clinical & clinical Allergies No Known Allergies Allergy (Verified 11/26/24 10:27) Medication List - Last Reconciled 11/26/24 by Margarita Villalobos MD atorvastatin 40 mg PO DAILY capsaicin 0.025% 1 appl topical BID diclofenac sodium 1% (Voltaren Arthritis Pain) 4 grams topical QID famotidine 40 mg PO DAILY folic acid 1 mg PO DAILY insulin glargine (Lantus U-100 Insulin) units subcut metformin 1,000 mg PO BID methotrexate sodium 20 mg (8 x 2.5 mg) PO QWEEK naproxen 500 mg PO BID omeprazole 40 mg PO BID prednisone 5 mg PO DAILY valsartan 80 mg PO DAILY HPI Comments Details: Patient is a 64-year-old male with hyperlipidemia, diabetes and hypertension who presents for follow up of seropositive rheumatoid arthritis Interval History: Patient last seen 08/26/[address] Tamayo. At that time patient's RA was much better controlled on methotrexate 20 mg weekly and folic acid. The plan was to reduce his prednisone over the course of several weeks to 2.5 mg and then follow-up. Today, He did not decrease his prednisone States that he has been taking prednisone for many years and he feels it is the only medication that helps his symptoms. He did not decrease the prednisone and wants to remain on 10mg The reason he sites for now decrease in his prednisolone as because he still continues to have pain and swelling his joints and the prednisone is only thing that helps him Rheumatologic History: Diagnosed approximately in 2019 ++RF ++CCP Initially started on methotrexate [id number]. But then patient was lost to follow up Patient reestablish care 02/2024 and methotrexate was restarted Current Rheumatology Medication(s): Methotrexate 20 mg weekly Folic acid 1 mg daily Prednisone 10 mg daily ON LICENSE OF [facility] Medical History (Updated 11/26/24 @ 12:04 by Margarita Villalobos MD) Encounter for monitoring leflunomide therapy Osteoarthritis of acromioclavicular joints, bilateral Chronic joint pain Rheumatoid arthritis Type 2 diabetes mellitus Social History Alcohol intake: current Alcohol intake frequency: a few times a week Alcohol type: beer Patient Tobacco Use Status: Former Tobacco user Current occupational status: unemployed Review of Systems Const Details: Review of Systems Constitutional: Denies fever, chills, weight loss ENT: Denies vision changes, eye pain or eye redness, dental caries, dry mouth GI: Denies nausea, vomiting, diarrhea, abdominal pain, change in BM Pulm: Denies SOB, MURPHY, hemoptysis, wheezing Cards: Denies chest pain, palpitations Skin: Denies Raynaud's, rash, nail changes, photosensitivity, SCREEN PRINTER HELPER: Denies headaches, weakness, paresthesias, recurrent falls MSK: as per HPI All other systems reviewed and are unremarkable except noted above Physical Exam Vital Signs: Last Vital Signs Pulse 72 11/26/24 10:28 BP 115/70 11/26/24 10:28 Pulse Ox 97 11/26/24 10:28 Oxygen Delivery Method Room Air 11/26/24 10:28 BMI result Body Mass Index 25.1 Vital signs reviewed Physical Examination CONSTITUITIONAL Patient alert and cooperative. Well appearing and in no apparent painful distress HEENT Conjunctiva and sclera clear. ?Pupils equal round and reactive to light. ?No lymphadenopathy. ? CHEST/RESPIRATORY SYSTEM Normal respiratory effort and able to speak in complete sentences. ?Clear to auscultation bilaterally. ?No crackles, rales, rhonchi, wheezes heard. CARDIAC SYSTEM Regular rate and rhythm. ?S1 and S2 heard no murmurs. ?Radial pulses intact bilaterally MSK Hands: ?Good machine plug shaper strength bilaterally. Swelling and tenderness to palpation of the 3rd PIPs bilaterally. Tenderness to palpation of the MCPs throughout Wrists: ?Full range of motion at the wrists without pain. ?No tenderness to palpation or synovitis noted to the wrists. Elbows: Full range of motion without pain. No tenderness, weakness, swelling, increased warmth or erythema. Shoulders: Full range of motion but does report pain with active range of motion. Tenderness to palpation of bilateral AC joints. Hips: Full range of motion without pain. Hip bursa: No tenderness to palpation Knees: ?Full range of motion. ?No tenderness, swelling, increased warmth or erythema.? Crepitations felt bilaterally. Ankles: Full range of motion. ?No tenderness, swelling, increased warmth or erythema.? Feet: ?Negative squeeze test. ?No tenderness to palpation or swelling of the MTPs. Tender points:?No tenderness to palpation of the bilateral trapezius, supraspinatus, greater trochanters, anterior costochondral junctions, bilateral gluteal areas, bilateral suboccipital muscle insertions SKIN Skin intact without rashes. Office Procedures AMB Joint Injection/Aspiration Joint Injection/Aspiration Details: Procedure was explained to the patient and consent was obtained. ? The area of interest was identified and confirmed with patient. ?This was subsequently cleaned with chlorhexidine x3. ? The area was then anesthetized using ethyl chloride spray. 40 mg Kenalog with 1 cc 1% lidocaine was injected without issue. ?Minimal to no bleeding. ?Patient tolerated procedure. Primary Site: right shoulder (Right AC joint) Prep: site was prepped using aseptic technique and ethochloride spray was applied Injected: 40 mg of, Kenalog, with 1 mL of and 1% plain lidocaine Approach Used: anterior Procedure: The patient tolerated the procedure well Coding 78171 - Medium joint Procedure code (CPT) selection complete AMB Joint Injection/Aspiration Joint Injection/Aspiration Details: Procedure was explained to the patient and consent was obtained. ? The area of interest was identified and confirmed with patient. ?This was subsequently cleaned with chlorhexidine x3. ? The area was then anesthetized using ethyl chloride spray. 40 mg Kenalog with 1 cc 1% lidocaine was injected without issue. ?Minimal to no bleeding. ?Patient tolerated procedure. Primary Site: left shoulder (Left AC joint) Prep: site was prepped using aseptic technique and ethochloride spray was applied Injected: 40 mg of, Kenalog, with 1 mL of and 1% plain lidocaine Approach Used: anterior Procedure: The patient tolerated the procedure well Coding 02846 - Medium joint Procedure code (CPT) selection complete Office Meds lidocaine (PF) 10 mg/mL (1 %) injection solution Performing Provider: Margarita Villalobos MD Performing Location: [facility] Rheumatology Administered by: Margarita Villalobos MD on 11/26/24 12:10 Dose Route Admin Location Dispensed Lot Number Expiration Date [facility] Supervisor Lens Generating 10 mg Infiltration 2 mL [id number] 01/25/27 97889-563-33 [employer] Kenalog 40 mg/mL suspension for injection Performing Provider: Margarita Villalobos MD Performing Location: [facility] Rheumatology Administered by: Margarita Villalobos MD on 11/26/24 12:10 Dose Route Admin Location Dispensed Lot Number Expiration Date [facility] Supervisor Lens Generating 40 mg intra-articular 1 mL [id number] 04/26/26 [address]-7 [employer] lidocaine (PF) 10 mg/mL (1 %) injection solution Performing Provider: Margarita Villalobos MD Performing Location: [facility] Rheumatology Administered by: Margarita Villalobos MD on 11/26/24 12:10 Dose Route Admin Location Dispensed Lot Number Expiration Date [facility] Supervisor Lens Generating 10 mg Infiltration 2 mL [id number] 01/25/27 91540-181-16 [employer] Kenalog 40 mg/mL suspension for injection Performing Provider: Margarita Villalobos MD Performing Location: [facility] Rheumatology Administered by: Margarita Villalobos MD on 11/26/24 12:10 Dose Route Admin Location Dispensed Lot Number Expiration Date [facility] Supervisor [employer] Generating 40 mg intra-articular 1 mL [id number] 04/26/26 [address]-1 [employer] Results Reviewed Results Reviewed: Laboratory Tests 03/17/24 11/22/24 11:45 08:17 WBC 5.4 RBC 4.21 L Hgb 13.4 L Hct 39.1 L Plt Count 358 D ESR 25 H Sodium 137 Potassium 4.1 Chloride 103 Carbon Dioxide 27 BUN 16 Creatinine 0.87 Calcium 9.3 Total Bilirubin 0.5 AST 25 ALT 48 H C-Reactive Protein 0.42 Total Protein 7.6 Albumin 4.3 Cycl Citrul Peptide IgG >250 H XR Bilateral Hands/Wrists, Ankles/Feet 02/2024 FINDINGS: Right hand and wrist: Prominent scaphoid tubercle compatible with normal variation or old fracture. First metacarpophalangeal joint: There is joint space narrowing and possible small marginal osteophytes. There is capsular calcification/ossification involving the third and fourth DIP joints. There are no marginal erosions. There are no additional soft tissue calcifications or ossifications. Left hand and wrist: Distal radioulnar joint: There are marginal osteophytes indicative of xgiw-pf-xmhawzbb osteoarthritis. There is increased bone formation along the distal aspect of the ulna perhaps related to old fracture. This results in the ulnar styloid not being well defined. First metacarpophalangeal joint: Tiny subchondral cyst in the metatarsal head. Joint otherwise unremarkable. Scattered capsular calcification/ossifications about some of the interphalangeal joints. No joint space narrowing or definite marginal osteophytes. Right ankle and foot: Probable mild osteoarthritis of the third and fourth DIP joints manifested by marginal osteophytes and possible subchondral cysts. No marginal erosions. Left ankle and foot: Probable mild osteoarthritis of the third DIP joint manifested by small marginal osteophytes. Minimal capsular ossification/calcification about the second PIP joint. No marginal erosions. The ulnar styloid is not well defined. Assessment & Plan Assessment & Plan (1) Rheumatoid arthritis: Comment: ++RF CCp unknown dx approx 2019 MTX 2020 -2021. lost to f/u on PDN throughout MTX restarted 02/2024 effective Code(s): M06.9 - Rheumatoid arthritis, unspecified Category: Medical Qualifiers: Rheumatoid arthritis location: multiple sites Rheumatoid factor presence: with rheumatoid factor Qualified Code(s): M05.79 - Rheumatoid arthritis with rheumatoid factor of multiple sites without organ or systems involvement Plan: #Seropositive non erosive RA Patient is a 64-year-old male with seropositive nonerosive rheumatoid arthritis that is currently not in remission. As evidenced by synovitis involving his MCPs and scattered PIPs. He is currently taking methotrexate 20 mg weekly. I think we have maximized the efficacy of methotrexate without causing transaminitis or cytopenias. I discussed with the patient about starting an injectable but patient would rather start another pill at this time. He states that he frequently travels and he feels that having pills would be more accessible for him to take when he travels. Plan - Start leflunomide 20mg PO daily - Continue methotrexate 20mg weekly - Folic acid 1mg daily - Decrease prednisone to 5 mg daily - RTC 4 months - Labs before visit: CBC, CMP, ESR, CRP, hepatitis panel, hepatitis-B viral load, T spot (2) Osteoarthritis of acromioclavicular joints, bilateral: Code(s): M19.011 - Primary osteoarthritis, right shoulder; M19.012 - Primary osteoarthritis, left shoulder Category: Medical Plan: #Bilateral shoulder OA Patient with tenderness to palpation of bilateral AC joints likely consistent with bilateral shoulder osteoarthritis. Patient is status post bilateral steroid injection today (3) long term care administrator methotrexate user: Code(s): Z79.631 - long term care administrator (current) use of antimetabolite agent Category: Medical Plan: #Long-term Current Use of Methotrexate Discussed with patient the benefits and risks of methotrexate for managing their rheumatic condition Benefits include reduced pain, reduced mortality, maintenance of remission and reduction of flares Risks include oral ulcers, photosensitivity, hepatotoxicity, hematologic toxicity, pneumonitis, flu-like symptoms (especially day after administration), nodulosis, lymphomas ? Limit alcohol and avoid Bactrim ? Monitoring: ?CBC, BMP, LFTs every 3-4 months and hepatitis serologies as needed (4) Encounter for monitoring leflunomide therapy: Code(s): Z51.81 - Encounter for therapeutic drug level monitoring; Z79.69 - MCFP (current) use of other immunomodulators and immunosuppressants Category: Medical Plan: #Long-term leflunomide Discussed with patient the benefits and risks of leflunomide for managing the rheumatic condition Benefits include: - Reduced pain, maintenance of remission and reduction of flares Risks include: - GI upset especially diarrhea, skin rash, cytopenias, hepatotoxicity, weight loss, neuropathy Initiation: ?CBC, BMP, LFTs, hepatitis-B and C serologies every 2-4 weeks for 3 months Monitoring: ?CBC, BMP, LFTs, hepatitis B and C serologies Plan I spent 40 minutes reviewing the record and labs, taking a history, examining the patient, discussing the treatment plan and documenting in the medical record Orders: Orders Complete Blood Count Auto Diff 4 Months M0 - Rheumatoid arthritis with rheumatoid factor of multiple sites without organ or systems involvement, Z79.631 - long term care administrator (current) use of antimetabolite agent Comprehensive Met. Panel 4 Months M0 - Rheumatoid arthritis with rheumatoid factor of multiple sites without organ or systems involvement, Z79.631 - [facility]FP (current) use of antimetabolite agent Hepatitis A,B,C Profile 4 Months . - Rheumatoid arthritis with rheumatoid factor of multiple sites without organ or systems involvement, Z79.631 - [facility]FP (current) use of antimetabolite agent Hepatitis B Viral DNA Qn 4 Months R76.8 - Other specified abnormal immunological findings in serum C Reactive Protein 4 Months M0. - Rheumatoid arthritis with rheumatoid factor of multiple sites without organ or systems involvement, Z79.631 - [facility]FP (current) use of antimetabolite agent Erythrocyte Sedimentation Rate 4 Months M05.79 - Rheumatoid arthritis with rheumatoid factor of multiple sites without organ or systems involvement, Z79.631 - [facility]FP (current) use of antimetabolite agent T Spot TB 4 Months M05.79 - Rheumatoid arthritis with rheumatoid factor of multiple sites without organ or systems involvement, Z79.631 - long term care administrator (current) use of antimetabolite agent AMB Joint Injection/Aspiration Today M19.011 - Primary osteoarthritis, right shoulder, M19.012 - Primary osteoarthritis, left shoulder AMB Joint Injection/Aspiration Today M19.011 - Primary osteoarthritis, right shoulder, M19.012 - Primary osteoarthritis, left shoulder Medications: New prednisone 5 mg PO DAILY 90 tabs 1RF M05.79 - Rheumatoid arthritis with rheumatoid factor of multiple sites without organ or systems involvement lidocaine (PF) 10 mg Infiltration ONCE 2 mL 0RF M19.011 - Primary osteoarthritis, right shoulder, M19.012 - Primary osteoarthritis, left shoulder Kenalog (triamcinolone acetonide) 40 mg intra-articular ONCE 1 mL 0RF NS M19.011 - Primary osteoarthritis, right shoulder, M19.012 - Primary osteoarthritis, left shoulder lidocaine (PF) 10 mg Infiltration ONCE 2 mL 0RF M19.011 - Primary osteoarthritis, right shoulder, M19.012 - Primary osteoarthritis, left shoulder Kenalog (triamcinolone acetonide) 40 mg intra-articular ONCE 1 mL 0RF NS M19.011 - Primary osteoarthritis, right shoulder, M19.012 - Primary osteoarthritis, left shoulder leflunomide 20 mg PO DAILY 90 tabs 1RF M05.79 - Rheumatoid arthritis with rheumatoid factor of multiple sites without organ or systems involvement Refilled methotrexate sodium 20 mg (8 x 2.5 mg) PO QWEEK 96 tabs 1RF folic acid 1 mg PO DAILY 90 tabs 1RF Discontinued prednisone Discontinued Reason: Doctor's Order Take 3 tabs daily for 2 weeks then 2 tabs daily for 2 weeks then remain on 1 tab daily 130 tabs 0RF Coding Level of Care Code Est Pt Level 5 (51960) Complex EM visit Add On G2211 Diagnoses Rheumatoid arthritis involving multiple sites with positive rheumatoid factor M05.79 Rheumatoid arthritis location: multiple sites Rheumatoid factor presence: with rheumatoid factor Osteoarthritis of acromioclavicular joints, bilateral M19.011; M19.012 long term care administrator methotrexate user Z79.631 Encounter for monitoring leflunomide therapy Z51.81; Z79.69 CPT Codes Coding - 07624 Medium joint: 16952 - Medium joint ([id number]) Coding - 23624 Medium joint: 67117 - Medium joint ([id number])
[2024-11-26 10:28] VITALS: BP 115/70; PULSE 72; O2SAT 97; BMI 25.1
--- OUTSIDE RECORDS SUMMARY | 2024-11-26 10:59 | XMS_ITS | Encounter Summary ---
Author Organization [place] [address] Care Team Providers Care Delivery And Mail Sorter Name Role Phone Krysta Sarmiento MD Primary Care Provider [phone] Reason for Visit * Reason Comments Sore Throat Sorethroat, fevers, body aches resolved x1 week Encounter Details Date Type Department Care Team (Late st Contact Info) Description 11/17/2024 6:30 PM EST - 11/17/2024 8:12 PM EST Emergency [facility] Emergency [address] [place] [id number] Viral pharyngitis (Primary Dx); Encounter to obtain [...] aches and pains. You may also take khsy-nde-ggutbec cold medications. Please be aware that many [...] or require a referral, a follow-up doctor grease monkey for the emergency department will be provided [...] sent through Care Everywhere. * Sore Throat ([place]) documented in this encounter Medications at Time of Discharge Medication Sig Dispensed Refills Start Date End Date lancets (OneTouch Delica Plus Lancet) 30 gaugeIndications:Type 2 diabetes mellitus without complications ([facility]) USE UP TO 3 TIMES A [...] Medical History: Diagnosis Date ??? Diabetes mellitus ([facility]/HCC) 06/27/2021 DX:Diabetes mellitus (HCC) ??? Seropositive rheumatoid arthritis (CMS/HCC) 06/27/2021 DX:Seropositive rheumatoid arthritis ([facility]) History reviewed. No pertinent surgical history. [...] No pathogens isolated. 11/19/2024 2:04 PM EST [facility] Swab Structure of anterior portion of neck / Unknown Non-blood Collection / Unknown 11/17/2024 6:02 PM EST 11/17/2024 6:32 PM EST Estuardo Seay DO LAB MICROBIOLOGY - G ENERAL ORDERABLES Performing Organization Address City/[facility]/ZIP Co de Phone Number [facility] [address] [place] [address], [place] [phone] * Rapid strep A screen (11/17/2024 6:02 PM EST) Strep A Ag Negative Negative, Invalid 11/17/2024 6:51 PM EST [facility] Comment:Refer to Throat Cult ure. Swab Structure of anterior portion of neck / Unknown Non-blood Collection / Unknown 11/17/2024 6:02 PM EST 11/17/2024 6:32 PM EST Estuardo Seay DO LAB MICROBIOLOGY - G ENERAL ORDERABLES [facility] [address] [place] [address], [place] [phone] documented in this encounter Visit Diagnoses Diagnosis Viral pharyngitis- Primary Acute pharyngitis Encounter to obtain excuse from work documented in this encounter Care Teams Delivery And Mail Sorter Relationship Specialty Start Date End Date Krysta Sarmiento MD [address] [place], [place] [id number] PCP - General 09/10/23 documented as of this encounter
--- OUTSIDE RECORDS SUMMARY | 2024-11-26 10:59 | XMS_ITS | Clinical Summary ---
Author Organization [facility] Address [address] [place] [address] Phone Care Team Providers Care Economic History Teacher Name Role Phone Krysta Sarmiento MD Primary Care Provider [phone] Allergies No known active allergies Medications Medication Sig Dispensed Refills Start Date End Date Status lancets (OneTouch Delica Plus Lancet) 30 gaugeIndications:Ty pe 2 diabetes mellitus without complications ([facility]) USE UP TO 3 TIMES A DAY [...] EST - 11/17/2024 8:12 PM EST Emergency [facility] Emergency [address] [place] [address] Viral pharyngitis (Primary Dx); Encounter [...] Negative Negative, Invalid 11/17/2024 6:51 PM EST [facility] Comment:Refer to Throat Cult ure. Swab Structure of anterior portion of neck / Unknown Non-blood Collection / Unknown 11/17/2024 6:02 PM EST 11/17/2024 6:32 PM EST Estuardo Seay DO LAB MICROBIOLOGY - G ENERAL ORDERABLES [facility] [address] [place] [address], [place] [phone] * Culture throat (11/17/2024 6:02 PM EST) Culture, Throat No pathogens isolated. 11/19/2024 2:04 PM EST [facility] Swab Structure of anterior portion of neck / Unknown Non-blood Collection / Unknown 11/17/2024 6:02 PM EST 11/17/2024 6:32 PM EST Estuardo Seay DO LAB MICROBIOLOGY - G ENERAL ORDERABLES [facility] [address] [place] [address], [place] [phone] from Last 3 Months Care Teams Economic History Teacher Relationship Specialty Start Date End Date Krysta Sarmiento MD [address] [facility] [address] [place] [address] PCP - General 09/10/23
== END 2024-11-26 11:13 | disposition home or self-care (01) ==
PROVIDERS: PCP Internal Medicine; Visit Provider Student in an Organized Health Care Education/Training Program
DX: M05.79 Rheumatoid arthritis with rheumatoid factor of multiple sites without organ or systems involvement (principal); M19.011 Primary osteoarthritis, right shoulder; M19.012 Primary osteoarthritis, left shoulder; Z79.631 Long term (current) use of antimetabolite agent; Z51.81 Encounter for therapeutic drug level monitoring; Z79.69 Long term (current) use of other immunomodulators and immunosuppressants
CPT/HCPCS: 20605; 99215

== ENCOUNTER → 2024-11-26 10:15 | Outpatient (BNVA) | payer OTHER, SELFPAY | PROVIDERS: PCP Internal Medicine; Visit Provider Student in an Organized Health Care Education/Training Program | DX: M05.79 Rheumatoid arthritis with rheumatoid factor of multiple sites without organ or systems involvement (principal); M19.011 Primary osteoarthritis, right shoulder; M19.012 Primary osteoarthritis, left shoulder; Z51.81 Encounter for therapeutic drug level monitoring; Z79.69 Long term (current) use of other immunomodulators and immunosuppressants; Z79.631 Long term (current) use of antimetabolite agent | CPT/HCPCS: 20605; 99212; J2003; J3300 ==

== ENCOUNTER 2025-03-22 08:01 | Outpatient (REF) | payer OTHER, SELFPAY ==
--- OUTSIDE RECORDS SUMMARY | 2025-03-22 08:04 | XMS_ITS | Encounter Summary ---
Author Organization [facility] Address [address] [place] [address] Care Team Providers Care Retanned Leather Roller Name Role Phone Krysta Sarmiento MD Primary Care Provider [phone] Reason for Referral * Medications - Closed Specialty Diagnoses / Procedures Referred By Augustine saldana Referred To Contact Diagnoses Type 2 diabetes mellitus with other specified complication, without long-term current use of insulin (CMS/HCC V24, CMS/HCC V28) Laury Salazar PA [address] [place] [address] Phone: tel: fax: Referral ID Status Reason Start Date Expiration Date Visits Re quested Visits Authorized [id number] Closed 1 1 Reason for Visit * Reason Comments Consult Encounter Details Date Type Department Care Team ([facility] st Contact Info) Description 03/17/2025 11:30 AM EDT Consult Endocrinology - [address] [address] Laury Salazar PA [address] [place] [address] Type 2 diabetes mellitus with other specified complication, without long-term current use of insulin (CMS/HCC V24, CMS/HCC V28) (Primary Dx); Primary hypertension; Hyperlipidemia, unspecified hyperlipidemia type Social History Tobacco Use Types Packs/Day Years Used Date Smoking Tobacco: Never Smokeless Tobacco: Never Alcohol Use Standard Drinks/Week Comments Yes 2 (1 standard drink = 0.6 oz pur e alcohol) Sex and Gender Information Value Date Recorded Sex Assigned at Male 11/17/2024 7:56 PM EST Legal Sex Male 1:05 PM EST Gender Identity Male 11/17/2024 7:56 PM EST Sexual Orientation Straight 11/17/2024 7: 56 PM EST documented as of this encounter Last Filed Vital Signs Vital Sign Reading Time Taken Comments Blood Pressure - - Pulse - - Temperature - - Respiratory Rate - - Oxygen Saturation - - Inhaled Oxygen Concentration - - Weight 88 kg (194 lb) 03/17/2025 11:11 AM EDT Height - - Body Mass Index 27.84 02/24/2025 3:00 PM EDT documented in this encounter Ordered Prescriptions Prescription Sig Dispense Quantity Refills Last Filled Start Date End Date blood-glucose,rece iver,cont (FreeStyle Rogerio 3 Powderly) miscIndications:Ty pe 2 diabetes mellitus with other specified complication, without long-term current use of insulin (CMS/T[employer] V24, CMS/HCC V28) 4 (four) times a day. 1 each 1 03/17/2025 BD Ultra-Fine Micro Pen Needle 32 gauge x 1/4 needle USE DAILY WITH INSULIN 100 each 11 03/17/2025 Lantus Solostar U-100 Insulin 100 unit/mL (3 mL) injection penIndications:Typ e 2 diabetes mellitus with other specified complication, without long-term current use of insulin (CMS/HCC V24, CMS/HCC V28) Inject 20 Units under the skin at bedtime. 45 mL 5 03/17/2025 documented in this encounter Progress Notes * CRISTIANE Corbett - 03/17/2025 11:30 AM EDT CHIEF COMPLAINT: Consult IDENTIFIER: Yfn Vargas is a 64 y.o. old male. HPI: Patient presents to the office for follow-up on diabetes. First time seeing patient. Past medical history type 2 diabetes, hypertension, rheumatoid arthritis Diabetes: Lab Results Component Value Date HGBA1C 10.1 (H) 03/11/2025 Patient states that his A1c was high last time because he was without his medications for about 3 months Currently on Lantus 20 units Metformin at 1000 mg twice a day He brings me sensor rogerio 3 for indication but does not bring the reader. He does not want to use his phone. I provided general sensor education, but we were not able to place sensor today during the visit Blood sugar in the office 132 Hypertension: Blood pressure 133/83. On valsartan 80 mg Hyperlipidemia: Atorvastatin 40 mg Wt Readings from Last 3 Encounters: 03/17/25 88 kg (194 lb) 02/24/25 83.9 kg (185 lb) 01/25/25 80.7 kg (178 lb) ROS: GENERAL: No malaise, significant weight loss or fever HEENT: No changes in hearing or vision, nose bleeds or other nasal problems RESPIRATORY: No cough, wheezing or shortness of breath CARDIOVASCULAR: No chest pain, leg swelling or palpitations GI: No abdominal discomfort, blood in stools or black stools ENDOCRINE: See HPI MUSCULOSKELETAL: No joint pain or swelling, back pain, or muscle pain. NEURO: No persistent headache, syncope, seizures, weakness or numbness PAST MEDICAL HISTORY: Patient Active Problem List Diagnosis Date Noted Primary hypertension 01/25/2025 Type 2 diabetes mellitus, without long-term current use of insulin ([facility] V24, [facility] V28) 01/25/2025 Rheumatoid arthritis ([facility] V24, [facility] V28) 01/25/2025 SOCIAL HISTORY: Social History Tobacco Use Smoking status: Never Smokeless tobacco: Never Substance Use Topics Alcohol use: Yes Alcohol/week: 2.0 standard drinks of alcohol FAMILY HISTORY: No family status information on file. No family history on file. ACTIVE MEDICATIONS: Outpatient Medications Marked as Taking for the 03/17/25 encounter (Consult) with CRISTIANE Corbett Medication Sig Dispense Refill BD Ultra-Fine Micro Pen Needle 32 gauge x 1/4 needle USE DAILY WITH INSULIN 100 each 11 blood sugar diagnostic (FreeStyle Lite Strips) test strip 1 each. blood-glucose sensor (FreeStyle Rogerio 3 Sensor) device 1 EA 4 (four) times a day. Box = Kit = EA 2 each 5 blood-glucose,aquatic life laborer,cont (FreeStyle Rogerio 3 Powderly) misc 4 (four) times a day. 1 each 1 lancets (Love With FoodTouch Delica Plus Lancet) 30 gauge USE UP TO 3 TIMES A DAY 100 each 3 Lantus Solostar U-100 Insulin 100 unit/mL (3 mL) injection pen Inject 20 Units under the skin at bedtime. 45 mL 5 metFORMIN (GLUCOPHAGE) 1,000 mg tablet Take 1 tablet (1,000 mg total) by mouth 2 (two) times a day with meals. 180 each 3 [DISCONTINUED] BD Ultra-Fine Micro Pen Needle 32 gauge x 1/4 needle USE DAILY WITH INSULIN [DISCONTINUED] blood-glucose meter,continuous (unbound technologiesStyle Rogerio 3 Powderly) misc 4 (four) times a day.1 each 1 [DISCONTINUED] Lantus Solostar U-100 Insulin 100 unit/mL (3 mL) injection pen Inject 20 Units underthe skin at bedtime. 15 mL 2 ALLERGIES: Patient has no known allergies. PHYSICAL EXAM: Weight 88 kg (194 lb). Body mass index is 27.84 kg/m??. BMI is greater than 25.0 (above the normal range) - see Plan APPEARANCE: Alert and in no acute distress NEURO: Awake, alert and oriented x 3 LABS: Lab Results Component Value Date HGBA1C 10.1 (H) 03/11/2025 CHOL 118 03/11/2025 HDL 79 03/11/2025 TRIG 57 03/11/2025 No results found for: GLUCOSE No results found for: TSH IMAGING: IMPRESSION: 1. Type 2 diabetes mellitus with other specified complication, without long-term current use of insulin ([facility] V24, [facility] V28) 2. Primary hypertension 3. Hyperlipidemia, unspecified hyperlipidemia type PLAN: Patient presents to the office for follow-up on diabetes 1. Diabetes: First time seeing patient Diabetes not controlled, but he states that he was without medications for 3 months prior to A1c he has recently restarted his medications I provided general CGM education Please get a recheck labs follow-up in 3 months Rogerio 3 reader sent to the pharmacy 2. Hypertension: Blood pressure at goal. Continue with valsartan 3. Hyperlipidemia: Continue with atorvastatin All questions and concerns were addressed. Patient understands and agrees with this treatment plan.Patient was reminded to call or return to the office if any new or existing problems arise This document was made using voice recognition software. It may contain some errors in grammar or syntax Medication and lab orders: Type 2 diabetes mellitus with other specified complication, without long-term current use of insulin ([facility] V24, [facility] V28) (Primary) - Lantus Solostar U-100 Insulin 100 unit/mL (3 mL) injection pen; Inject 20 Units under the skin at bedtime. Dispense: 45 mL; Refill: 5 - Basic metabolic panel; Future - Hemoglobin A1c; Future - blood-glucose,aquatic life laborer,cont (FreeStyle Rogerio 3 Powderly) misc; 4 (four) times a day. Dispense: 1 each; Refill: 1 Primary hypertension Hyperlipidemia, unspecified hyperlipidemia type Other orders - BD Ultra-Fine Micro Pen Needle 32 gauge x 1/4 needle; USE DAILY WITH INSULIN Dispense: 100 each;Refill: 11 CRISTIANE Corbett on 03/17/2025 at 1:26 PM EDT documented in this encounter Plan of Treatment Upcoming Encounters Date Type Department Care Team (Late st Contact Info) Description 04/21/2025 10:30 AM EDT Office Visit Internal Medicine - [address] [address] Krysta Sarmiento MD [address] [address] 06/23/2025 11:00 AM EDT Office Visit Endocrinology [address] [address] Laury Salazar PA [address] [place] [id number] Scheduled Orders Name Type Priority Associated Diagnoses Orde r Schedule Basic metabolic panel Lab Routine Type 2 diabetes mellitus with other specified complication, without long-term current use of insulin ([facility] V24, [facility] V28) 1 Occurrences starting 03/17/2025 until 03/17/2026 Hemoglobin A1c Lab Routine Type 2 diabetes mellitus with other specified complication, without long-term current use of insulin ([facility] V24, [facility] V28) 1 Occurrences starting 03/17/2025 until 03/17/2026 documented as of this encounter Visit Diagnoses Diagnosis Type 2 diabetes mellitus with other specified complication, without long-term current use of insulin ([facility] V24, [facility] V28)- Primary Primary hypertension Unspecified essential hypertension Hyperlipidemia, unspecified hyperlipidemia type documented in this encounter Discontinued Medications Medication Sig Discontinue Reason Start Date End Da te BD Ultra-Fine Micro Pen Needle 32 gauge x 1/4 needle USE DAILY WITH INSULIN Reorder 08/16/2024 03/17/2025 Lantus Solostar U-100 Insulin 100 unit/mL (3 mL) injection penIndications:Type 2 diabetes mellitus with other specified complication, without long-term current use of insulin ([facility] V24, [facility] V28) Inject 20 Units under the skin at bedtime. Reorder 02/24/2025 03/17/2025 blood-glucose meter,continuous (FreeStyle Rogerio 3 Powderly) miscIndications:Type 2 diabetes mellitus with other specified complication, without long-term current use of insulin ([facility] V24, [facility] V28) 4 (four) times a day. Reorder 01/25/2025 03/17/2025 documented as of this encounter Care Teams Retanned Leather Roller Relationship Specialty Start Date End Date Krysta Sarmiento MD [address] [place] [address] PCP - General 09/10/23 documented as of this encounter
[2025-03-22 08:17] LABS: MANUAL DIFF FLAG NO
[2025-03-22 09:10] LABS: Basophils Absolute Auto 0.1 X10*3/uL (0.0-0.2); Basophils Percent Auto 0.9 % (0-2); Eosinophils Absolute Auto 0.3 X10*3/uL (0.0-0.4); Eosinophils Percent Auto 4.9 % (0-4); Hematocrit 37.8 % (42.0-52.0); Hemoglobin 12.6 g/dl (14.0-18.0); Imm Gran Abs Auto 0.02 X10*3/uL (0.00-0.03); Imm Gran Pct Auto 0.4 % (0.0-0.4); Lymphocytes Absolute Auto 1.2 X10*3/uL (1.2-4.9); Lymphocytes Percent Auto 22.7 % (20-40); Mean Corpuscular HGB Conc 33.3 g/dl (31.0-36.0); Mean Corpuscular Hemoglobin 32.1 pg (27.0-33.0); Mean Corpuscular Volume 96.2 fL (80.0-98.0); Mean Platelet Volume 11.6 fL (9.4-12.4); Monocytes Absolute Auto 0.7 X10*3/uL (0.1-1.2); Monocytes Percent Auto 13.3 % (2-11); Neutrophils Absolute Auto 3.1 x10*3/uL (2.0-8.3); Neutrophils Percent Auto 57.8 % (45-73); Platelet Count 206 X10*3/uL (160-400); Red Blood Count 3.93 X10*6/uL (4.60-5.80); Red Cell Distribution Width 12.7 % (11.0-16.0); White Blood Count 5.3 X10*3/uL (4.8-10.8)
[2025-03-22 09:47] LABS: Erythrocyte Sedimentation Rate 8 MM/HR (0-15)
[2025-03-22 09:56] LABS: Alanine Aminotransferase 30 U/L (0-40); Albumin Level 4.6 g/dL (3.5-5.0); Alkaline Phosphatase 60 U/L (39-117); Anion Gap 16 (12-20); Aspartate Amino Transferase 30 U/L (5-37); Bilirubin Total 0.5 mg/dL (0.0-1.0); Blood Urea Nitrogen 14 mg/dL (9-16); C Reactive Protein 0.59 mg/dL (< or = 0.50); Calcium 9.4 mg/dL (8.4-10.2); Carbon Dioxide 25 mmol/L (22-29); Chloride 103 mmol/L (96-108); Estimated Glomerular Filt Rate > 60; Glucose Random 290 mg/dL (60-115); Potassium 4.5 mmol/L (3.3-5.1); Sodium 139 mmol/L (135-145)
[2025-03-22 10:04] LABS: HBS Num1 798.14 mIU/mL (0-7.99); HBc Num1 7.33 S/CO (0.00-0.79); HBsAGNum1 0.32 S/CO (0.00-0.99); Hepatitis A Antibody IgM 0.32 Index (0-0.79); Hepatitis B Surface Antigen Negative (Negative); ~HepC Num1 0.08 S/CO (0.00-0.79); ~Hepatitis A Antibody IgM Nonreactive (Nonreactive); ~Hepatitis B Surface Antibody REACTIVE (Nonreactive); ~Hepatitis C Antibody Nonreactive (Nonreactive)
[2025-03-22 13:29] LABS: HBc Num2 7.37 S/CO; HBc Num3 7.28 S/CO; Hepatitis B Core Antibody Reactive (Nonreactive)
[2025-03-24 15:09] LABS: Hepatitis B Viral DNA Qn - cp NOT DETECTED Log IU/mL (NOT DETECTED); Hepatitis B Viral DNA Qn-IU/mL NOT DETECTED (NOT DETECTED)
[2025-03-25 00:34] LABS: TS Negative Control Passed; TS Panel A 2; TS Panel B 1; TS Positive Control Passed; TSpotTB Negative (Negative)
== END 2025-03-22 08:02 | disposition home or self-care (01) ==
LOC: HO.LAB 08:01
PROVIDERS: Visit Provider Student in an Organized Health Care Education/Training Program
DX: M05.79 Rheumatoid arthritis with rheumatoid factor of multiple sites without organ or systems involvement (principal); R76.8 Other specified abnormal immunological findings in serum; Z79.631 Long term (current) use of antimetabolite agent
CPT/HCPCS: 36415; 80053; 85025; 85652; 86140; 86481; 86704; 86706; 86709; 86803; 87340; 87517

== ENCOUNTER 2025-04-22 09:20 | Outpatient (AMB) | payer OTHER, SELFPAY ==
--- NOTE | 2025-04-22 09:36 | A.OFFVIS_ITS ---
Vital Signs 04/22/25 09:48 Height 5 ft 11 in Weight 182 lb 5.156 oz BMI 25.4 BP 124/80 Blood Pressure Location Lt brachial Position Sitting Pulse 58 Pulse Source Pulse Oximeter Pulse Oximetry (%) 98 Oxygen Delivery Method Room Air Intake Visit Reasons: f/u RA Intake Note: Patient presents for RA follow up. On 04/06/25 patient stated he went to [facility] Emergency room for severe bilateral hand, bilateral wrist, bilateral leg, bilateral ankle and bilateral feet pain. Both wrist, hands, ankles and feet were swollen. Patient request Prednisone and Naproxen for pain. Patient stated he is still in a lot of pain. Ramp Flight Attendant Required: Yes Ramp Flight Attendant Language: Sample Maker Original Services: Ramp Flight Attendant Present Ramp Flight Attendant Name: Soraya [email or web address] Information Interpreted: non-clinical & clinical Allergies No Known Allergies Allergy (Verified 04/22/25 09:48) Medication List - Last Reconciled 04/22/25 by Margarita Villalobos MD atorvastatin 40 mg PO DAILY capsaicin 0.025% 1 appl topical BID diclofenac sodium 1% (Voltaren Arthritis Pain) 4 grams topical QID famotidine 40 mg PO DAILY folic acid 1 mg PO DAILY insulin glargine (Lantus U-100 Insulin) units subcut leflunomide 20 mg PO DAILY metformin 1,000 mg PO BID methotrexate sodium 20 mg (8 x 2.5 mg) PO QWEEK naproxen 500 mg PO BID omeprazole 40 mg PO BID prednisone 5 mg PO DAILY valsartan 80 mg PO DAILY HPI Comments Details: Patient is a 64-year-old male with hyperlipidemia, diabetes and hypertension who presents for follow up of seropositive rheumatoid arthritis Interval History: Patient last seen 11/26/24 with me. Visit summary - Bilateral AC joint steroid injection - Added leflunomide to MTx due to continued disease activitiy - Decreased prednisone to 5mg Today, - patient did not decrease his prednisone dose - went to the ER and got 20mg prednisone for 5 days - Injection helped the shoulders - Feels the Mtx and leflunomide is not enough Rheumatologic History: Diagnosed approximately in 2019 ++RF ++CCP Initially started on methotrexate [id number]. But then patient was lost to follow up Patient reestablish care 02/2024 and methotrexate was restarted Current Rheumatology Medication(s): Methotrexate 20 mg weekly Folic acid 1 mg daily Leflunomide 10mg daily Prednisone 5 mg daily [facility] Medical History (Updated 11/26/24 @ 12:04 by Margarita Villalobos MD) Encounter for monitoring leflunomide therapy Osteoarthritis of acromioclavicular joints, bilateral Chronic joint pain Rheumatoid arthritis Type 2 diabetes mellitus Social History Alcohol intake: current Alcohol intake frequency: a few times a week Alcohol type: beer Patient Tobacco Use Status: Former Tobacco user Current occupational status: unemployed Review of Systems Const Details: Review of Systems Constitutional: Denies fever, chills, weight loss ENT: Denies vision changes, eye pain or eye redness, dental caries, dry mouth GI: Denies nausea, vomiting, diarrhea, abdominal pain, change in BM Pulm: Denies SOB, MURPHY, hemoptysis, wheezing Cards: Denies chest pain, palpitations Skin: Denies Raynaud's, rash, nail changes, photosensitivity, INSURANCE CLERK: Denies headaches, weakness, paresthesias, recurrent falls MSK: as per HPI All other systems reviewed and are unremarkable except noted above Physical Exam Vital Signs: Last Vital Signs Pulse 58 04/22/25 09:48 BP 124/80 04/22/25 09:48 Pulse Ox 98 04/22/25 09:48 Oxygen Delivery Method Room Air 04/22/25 09:48 BMI result Body Mass Index 25.4 Vital signs reviewed Physical Examination CONSTITUITIONAL Patient alert and cooperative. Well appearing and in no apparent painful distress HEENT Conjunctiva and sclera clear. ?Pupils equal round and reactive to light. ?No lymphadenopathy. ? CHEST/RESPIRATORY SYSTEM Normal respiratory effort and able to speak in complete sentences. ?Clear to auscultation bilaterally. ?No crackles, rales, rhonchi, wheezes heard. CARDIAC SYSTEM Regular rate and rhythm. ?S1 and S2 heard no murmurs. ?Radial pulses intact bilaterally MSK Hands: ?Good laborer hoisting strength bilaterally. TTP of the 3rd PIPs without swelling bulaterally. Also TTP of the 1st CMC joints bilaterally Wrists: ?Full range of motion at the wrists without pain. ?No tenderness to palpation or synovitis noted to the wrists. Elbows: Full range of motion without pain. No tenderness, weakness, swelling, increased warmth or erythema. Shoulders: Full range of motion. No TTP of the AC joints Knees: ?Full range of motion. ?No tenderness, swelling, increased warmth or erythema.? Crepitations felt bilaterally. Ankles: Full range of motion. ?No tenderness, swelling, increased warmth or erythema.? Feet: ?Negative squeeze test. ?No tenderness to palpation or swelling of the MTPs. Tender points:?No tenderness to palpation of the bilateral trapezius, supraspinatus, greater trochanters, anterior costochondral junctions, bilateral gluteal areas, bilateral suboccipital muscle insertions SKIN Skin intact without rashes. Results Reviewed Results Reviewed: Laboratory Tests 11/22/24 03/22/25 08:17 08:14 WBC 5.3 RBC 3.93 L Hgb 12.6 L Hct 37.8 L Plt Count 206 D ESR 25 H 8 Sodium 139 Potassium 4.5 Chloride 103 Carbon Dioxide 25 BUN 14 Creatinine 0.91 Calcium 9.4 Total Bilirubin 0.5 AST 30 ALT 30 Alkaline Phosphatase 60 C-Reactive Protein 0.42 0.59 H Total Protein 7.0 Rheumatology Labs 03/17/24 11:45 Cycl Citrul Peptide IgG >250 H LIYA Screen NEGATIVE SS-A/Ro Antibody <1.0 NEG SS-B/La Antibody <1.0 NEG Sm (Reddy) Antibody <1.0 NEG SM/COMPLIANCE CONSULTANT IgG Antibody <1.0 NEG Double Strand DNA Ab <1 Anti-ds DNA (Crithidia) Negative Complement C3 62 L Complement C4 13 L XR Bilateral Hands/Wrists, Ankles/Feet 02/2024 FINDINGS: Right hand and wrist: Prominent scaphoid tubercle compatible with normal variation or old fracture. First metacarpophalangeal joint: There is joint space narrowing and possible small marginal osteophytes. There is capsular calcification/ossification involving the third and fourth DIP joints. There are no marginal erosions. There are no additional soft tissue calcifications or ossifications. Left hand and wrist: Distal radioulnar joint: There are marginal osteophytes indicative of ujor-aa-zyuhiwag osteoarthritis. There is increased bone formation along the distal aspect of the ulna perhaps related to old fracture. This results in the ulnar styloid not being well defined. First metacarpophalangeal joint: Tiny subchondral cyst in the metatarsal head. Joint otherwise unremarkable. Scattered capsular calcification/ossifications about some of the interphalangeal joints. No joint space narrowing or definite marginal osteophytes. Right ankle and foot: Probable mild osteoarthritis of the third and fourth DIP joints manifested by marginal osteophytes and possible subchondral cysts. No marginal erosions. Left ankle and foot: Probable mild osteoarthritis of the third DIP joint manifested by small marginal osteophytes. Minimal capsular ossification/calcification about the second PIP joint. No marginal erosions. The ulnar styloid is not well defined. Assessment & Plan Assessment & Plan (1) Rheumatoid arthritis: Comment: ++RF CCp unknown dx approx 2019 MTX 2020 -2021. lost to f/u on PDN throughout MTX restarted 02/2024 effective Code(s): M06.9 - Rheumatoid arthritis, unspecified Category: Medical Qualifiers: Rheumatoid arthritis location: multiple sites Rheumatoid factor presence: with rheumatoid factor Qualified Code(s): M05.79 - Rheumatoid arthritis with rheumatoid factor of multiple sites without organ or systems involvement Plan: #Seropositive non erosive RA Patient is a 64-year-old male with seropositive nonerosive rheumatoid arthritis that is currently in low disease activity with CDAI 2 (3rd PIP TTP bilaterally). Discussed with the patient that I think that his current pain maybe due to degenerative joint disease/osteoarthritis. As his exam is much improved from previous. This may be confused by the fact that he recently had a high dose of prednisolone. I impressed upon him that if and when he has issues he should contact office and we will get him in to be seen and evaluated. No we will continue the medications as prescribed Plan - Leflunomide 20mg PO daily - Methotrexate 20mg weekly - Folic acid 1mg daily - Prednisone to 5 mg daily - RTC 4 months - Labs before visit: CBC, CMP, ESR, CRP (2) Osteoarthritis of acromioclavicular joints, bilateral: Code(s): M19.011 - Primary osteoarthritis, right shoulder; M19.012 - Primary osteoarthritis, left shoulder Category: Medical Plan: #Bilateral shoulder OA Patient with tenderness to palpation of bilateral AC joints likely consistent with bilateral shoulder osteoarthritis. Improved (3) assisted methotrexate user: Code(s): Z79.631 - terminal supervisor (current) use of antimetabolite agent Category: Medical Plan: #Long-term Current Use of Methotrexate Discussed with patient the benefits and risks of methotrexate for managing their rheumatic condition Benefits include reduced pain, reduced mortality, maintenance of remission and reduction of flares Risks include oral ulcers, photosensitivity, hepatotoxicity, hematologic toxicity, pneumonitis, flu-like symptoms (especially day after administration), nodulosis, lymphomas ? Limit alcohol and avoid Bactrim ? Monitoring: ?CBC, BMP, LFTs every 3-4 months and hepatitis serologies as needed (4) Encounter for monitoring leflunomide therapy: Code(s): Z51.81 - Encounter for therapeutic drug level monitoring; Z79.69 - assisted (current) use of other immunomodulators and immunosuppressants Category: Medical Plan: #Long-term leflunomide Discussed with patient the benefits and risks of leflunomide for managing the rheumatic condition Benefits include: - Reduced pain, maintenance of remission and reduction of flares Risks include: - GI upset especially diarrhea, skin rash, cytopenias, hepatotoxicity, weight loss, neuropathy Initiation: ?CBC, BMP, LFTs, hepatitis-B and C serologies every 2-4 weeks for 3 months Monitoring: ?CBC, BMP, LFTs, hepatitis B and C serologies Plan I spent 30 minutes reviewing the record and labs, taking a history, examining the patient, discussing the treatment plan and documenting in the medical record Orders: Orders Comprehensive Met. Panel 4 Months - Rheumatoid arthritis with rheumatoid factor of multiple sites without organ or systems involvement C Reactive Protein 4 Months . - Rheumatoid arthritis with rheumatoid factor of multiple sites without organ or systems involvement Complete Blood Count Auto Diff 4 Months . - Rheumatoid arthritis with rheumatoid factor of multiple sites without organ or systems involvement Erythrocyte Sedimentation Rate 4 Months . - Rheumatoid arthritis with rheumatoid factor of multiple sites without organ or systems involvement Medications: Changed From naproxen 500 mg PO BID M19.011 - Primary osteoarthritis, right shoulder, M19.012 - Primary osteoarthritis, left shoulder To naproxen 500 mg PO BID 180 tabs 1RF 90 days M19.011 - Primary osteoarthritis, right shoulder, M19.012 - Primary osteoarthritis, left shoulder Refilled methotrexate sodium 20 mg (8 x 2.5 mg) PO QWEEK 96 tabs 1RF prednisone 5 mg PO DAILY 90 tabs 1RF M0.79 - Rheumatoid arthritis with rheumatoid factor of multiple sites without organ or systems involvement leflunomide 20 mg PO DAILY 90 tabs 1RF .79 - Rheumatoid arthritis with rheumatoid factor of multiple sites without organ or systems involvement prednisone 5 mg PO DAILY 90 tabs 1RF M05.79 - Rheumatoid arthritis with rheumatoid factor of multiple sites without organ or systems involvement Coding Level of Care Code Est Pt Level 4 (12981) Complex EM visit Add On G2211 Diagnoses Rheumatoid arthritis involving multiple sites with positive rheumatoid factor M05.79 Rheumatoid arthritis location: multiple sites Rheumatoid factor presence: with rheumatoid factor Osteoarthritis of acromioclavicular joints, bilateral M19.011; M19.012 terminal supervisor methotrexate user Z79.631 Encounter for monitoring leflunomide therapy Z51.81; Z79.69
--- OUTSIDE RECORDS SUMMARY | 2025-04-22 09:43 | XMS_ITS | Encounter Summary ---
Author Organization [place] [address] Care Team Providers Care Health Information Provider Name Role Phone Krysta Sarmiento MD Primary Care Provider [phone] Reason for Visit * Reason Onset Date Comments DME 04/21/2025 CGM Encounter Details Date Type Department Care Team (Late st Contact Info) Description 04/21/2025 Telephone Internal Medicine - [place] [address] [facility] [address] [place] [id number] Ngoc Chase MA DME (CGM) Social History Tobacco Use Types Packs/Day Years [...] PM EST documented as of this encounter Ordered Prescriptions Prescription Sig Dispense Quantity Refills Last Filled Start Date End Date blood-glucose sensor (FreeStyle Rogerio 3 Plus Sensor) deviceIndications:T ype 2 diabetes mellitus with other specified complication, without long-term current use of insulin (CMS/HCC V24, CMS/HCC V28) 1 kit 4 (four) times a day. 2 kit 11 04/21/2025 documented in this encounter Progress Notes * Ngoc Chase MA - 04/21/2025 11:15 AM EDT CGM Rogerio 3 pended. documented in this encounter Plan of Treatment Upcoming Encounters Date Type Department Care Team (Late st Contact Info) Description 06/23/2025 11:00 AM EDT Office Visit Endocrinology - [place] [address] [place] [address] Laury Salazar PA [address] [place] [address] documented as of this encounter Visit Diagnoses Diagnosis Type 2 diabetes mellitus with other specified complication, without long-term current use of insulin (CMS/HCC V24, CMS/HCC V28) documented in this encounter Care Teams Health Information Provider Relationship Specialty Start Date End Date Krysta Sarmiento MD [address] [facility] [address] [place] [address] PCP - General 09/10/23 documented as of this encounter
[2025-04-22 09:48] VITALS: BP 124/80; PULSE 58; O2SAT 98; BMI 25.4
== END 2025-04-22 10:12 | disposition home or self-care (01) ==
LOC: HO.RHE 09:20
PROVIDERS: PCP Internal Medicine; Visit Provider Student in an Organized Health Care Education/Training Program
DX: M05.79 Rheumatoid arthritis with rheumatoid factor of multiple sites without organ or systems involvement (principal); M19.011 Primary osteoarthritis, right shoulder; M19.012 Primary osteoarthritis, left shoulder; Z79.631 Long term (current) use of antimetabolite agent; Z51.81 Encounter for therapeutic drug level monitoring; Z79.69 Long term (current) use of other immunomodulators and immunosuppressants
CPT/HCPCS: 99214; G2211

== ENCOUNTER → 2025-04-22 09:20 | Outpatient (BNVA) | payer OTHER, SELFPAY | PROVIDERS: PCP Internal Medicine; Visit Provider Student in an Organized Health Care Education/Training Program | DX: M05.79 Rheumatoid arthritis with rheumatoid factor of multiple sites without organ or systems involvement (principal); M19.011 Primary osteoarthritis, right shoulder; M19.012 Primary osteoarthritis, left shoulder; Z79.631 Long term (current) use of antimetabolite agent; Z79.60 Long term (current) use of unspecified immunomodulators and immunosuppressants; Z51.81 Encounter for therapeutic drug level monitoring | CPT/HCPCS: 99212 ==

== ENCOUNTER 2025-06-15 09:29 | Emergency (ER) | payer OTHER, SELFPAY ==
--- OUTSIDE RECORDS SUMMARY | 2025-05-10 05:52 | XMS_ITS ---
Author Organization [facility] Address [address] [place] [id number] Care Team Providers Care Roll Plugger Name Role Phone NO, PCP Primary Care Provider Alejandro Byers [phone] REASON FOR VISIT appt Encounters Encounter Location Date Provider Diagnosis [facility] [address] [place] [id number] 05/10/2025 Alejandro Byers Plan Of Treatment No Information Progress Notes * Yfn SOTODOB: (65 yo M)Acc No.[id number]:05/10/2025 Patient: Francisca Yfn MACIAS :1960 A ge:64 Y S ex:Male Address: [facility] [address], [place], [address] * * Date:
--- NOTE | ~2025-06-15 | XR_ITS ---
EXAMINATION: XR CHEST CLINICAL INFORMATION: cough and fever COMPARISON: None available. TECHNIQUE: 2 views of the chest were obtained. FINDINGS: On the frontal x-ray, a fissure in the mid right lung zone is visible. There are mildly coarse markings in the right lung with subtle focal increased density in the right upper lung zone and lower third lung zone. Left lung is clear. Heart and mediastinal contours are within normal limits. XR/XR chest 2V IMPRESSION: Vague patchy increased density in the right lower lung zone greater than the right upper lung zone and trace pleural fluid or thickening, early changes of pneumonia are not ruled out. Electronically signed by: Jesus Reno MD 06/15/2025 10:41 AM EDT
[2025-06-15 09:47] VITALS: BP 167/131; PULSE 113; RESP 18; TEMP 36.4; O2SAT 96; BMI 25.5
--- NOTE | 2025-06-15 09:48 | ED.GENADULT ---
HPI - General Adult General Chief complaint: Upper Respiratory Symptoms Stated complaint: fever Time Seen by Provider: 06/15/25 13:20 Source: patient, RN notes reviewed and dealer development manager (Adela ) Mode of arrival: ambulatory Limitations: language barrier (Kazakh-speaking) History of Present Illness ED Provider: Sarthak Woods PA-C HPI narrative: 65-year-old Kazakh-speaking male patient with medical history of rheumatoid arthritis, T2DM, presents to the ED due to 2 weeks of subjective fever, sore throat and body aches. Patient states he has been drinking hot tea, taking Advil without effect. Patient denies recent travel, sick contacts. Additionally, patient states he has been experiencing approximately 1 month of bilateral neck pain that radiates down bilateral shoulders that began after doing pushups in the gym. Patient states pain has been steadily improving over the past month. Denies chest pain, shortness of breath, cough, nausea, vomiting, abdominal pain, black/tarry stool, urinary symptoms Related Data Home Medications ?Medication ?Instructions ?Recorded ?Confirmed atorvastatin 40 mg tablet 40 mg PO DAILY 03/12/24 04/22/25 capsaicin 0.025 % topical cream 1 appl topical BID 03/12/24 04/22/25 famotidine 40 mg tablet 40 mg PO DAILY 03/12/24 04/22/25 metformin 1,000 mg tablet 1,000 mg PO BID 03/12/24 04/22/25 omeprazole 40 mg capsule,delayed 40 mg PO BID 03/12/24 04/22/25 release valsartan 80 mg tablet 80 mg PO DAILY 03/12/24 04/22/25 insulin glargine 100 unit/mL unit subcut 03/17/24 04/22/25 subcutaneous solution (Lantus U-100 Insulin) Previous Rx's ?Medication ?Instructions ?Recorded diclofenac sodium 1 % topical gel 4 g topical QID #100 grams 08/09/23 (Voltaren Arthritis Pain) folic acid 1 mg tablet 1 mg PO DAILY #90 tabs 03/23/25 leflunomide 20 mg tablet 20 mg PO DAILY #90 tabs 04/22/25 methotrexate sodium 2.5 mg tablet 20 mg (8 x 2.5 mg) PO QWEEK #96 04/22/25 tabs naproxen 500 mg tablet 500 mg PO BID 90 days #180 tabs 04/22/25 prednisone 5 mg tablet 5 mg PO DAILY #90 tabs 04/22/25 amoxicillin 875 mg-potassium 1 tab PO BID #9 tabs 06/15/25 clavulanate 125 mg tablet azithromycin 250 mg tablet 250 mg PO DAILY #4 tabs 06/15/25 Allergies Allergy/AdvReac Type Severity Reaction Status Date / Time No Known Allergies Allergy Verified 06/15/25 09:51 Review of Systems Review of Systems: CONST: Negative chills. POS Fever, body aches HENT: Negative for neck pain/stiffness, headache, swelling. POS nasal congestion, sore throat EYES: Negative for discharge/pain or vision changes. RESP: Negative for cough/hemoptysis and shortness of breath. CV: Negative difficulty breathing, palpitations. ABD: Negative pain, nausea, vomiting. : Negative increase frequency, dysuria, blood in urine or stool. MUSC: Negative for muscle aches, edema. POS B/L neck pain radiating to B/L arms SKIN: Negative rash, lesions/sores. NEURO: Negative headache, dizziness, weakness. Yes all other systems are reviewed and are negative PMFSH Past Medical History Attestation statement: The following information was validated with the patient. Source: old records reviewed and nursing notes reviewed Medical History Encounter for monitoring leflunomide therapy Osteoarthritis of acromioclavicular joints, bilateral Chronic joint pain Rheumatoid arthritis Type 2 diabetes mellitus Social History Social History Alcohol intake: never Patient Tobacco Use Status: Former Tobacco user Smoked in Last 30 Days: No Use of substances other than those prescribed or required for medical reasons: No Advance Directives: No Advance Directives Information Provided: Yes Current occupational status: unemployed Physical Exam ED Vital Signs: Vital Signs - 24 hr 06/15/25 13:48 06/15/25 16:15 06/15/25 17:00 Temperature 97.4 F 97.9 F 98.0 F Pulse Rate 101 H 88 91 Respiratory Rate 18 20 18 Blood Pressure 121/75 148/70 H 138/88 Pulse Oximetry 94 97 Oxygen Delivery Method Room Air Room Air Room Air BMI result Body Mass Index 25.5 GENERAL APPEARANCE: ?AxOx4, generally well-appearing, no acute distress. HEENT: ?NC, AT. MMM. EOMI, clear conjunctiva, oropharynx clear. NECK: ?Supple without lymphadenopathy.? No stiffness or restricted ROM. HEART:? Normal rate and regular rhythm, normal S1/S2, no m/r/g LUNGS:? CTAB, moving air well. No crackles or wheezes are heard. ABDOMEN: ?Soft, nontender, nondistended with good bowel sounds heard. BACK: No CVAT, no obvious deformity. EXTREMITIES: ?Without cyanosis, clubbing or edema. NEUROLOGICAL: ?Grossly nonfocal. Alert and oriented, moving all 4 extremities. Observed to ambulate with normal gait. Skin: ?Warm and dry without any rash. Course Course Course Narrative: This is a rapid medical exam performed by Angela Jenkins NP: Additional HPI, ROS, PE not included below will be deferred to primary provider. Patient is a 65-year-old Kazakh speaking male presenting with one week of subjective fevers, congestion. Did not take his metformin this morning, but did take naproxen this am. Plan: strep and viral swabs, cxr Medications Administered Discontinued Medications Generic Name Dose Route Start Last Admin Trade Name Freq PRN Reason Stop Dose Admin Amoxicillin/Clavulanate Potassium 875 mg 06/15/25 16:30 06/15/25 16:55 Amoxicillin/Potassium Clav 875 Mg Tablet PO 06/15/25 16:31 875 mg ONCE ONE Administration Azithromycin 500 mg 06/15/25 16:30 06/15/25 16:55 Azithromycin 500 Mg Tablet PO 06/15/25 16:31 500 mg ONCE ONE Administration Lactated Ringer's 1,000 mls @ 999 mls/hr 06/15/25 13:57 06/15/25 15:40 Lr IV 06/15/25 14:57 Infused .Q1H1M ONE Infusion Acetaminophen 1,000 mg in 100 mls @ 400 mls/hr 06/15/25 14:48 06/15/25 15:34 Ofirmev IV 06/15/25 15:02 Infused ONCE ONE Infusion Medical Decision Making Medical Decision Making MDM Narrative: 65-year-old Kazakh-speaking male patient with medical history of rheumatoid arthritis, T2DM, presents to the ED due to 2 weeks of subjective fever, sore throat and body aches. Patient states he has been drinking hot tea, taking Advil without effect. Patient denies recent travel, sick contacts. Additionally, patient states he has been experiencing approximately 1 month of bilateral neck pain that radiates down bilateral shoulders that began after doing pushups in the gym. Patient states pain has been steadily improving over the past month. VS on initial observation-BP 121/75, pulse rate of 101, respiratory rate of 18, afebrile with oral temp of 97.4, O2 saturation 94 percent on room air. On physical exam patient is nontoxic appearing, in no acute distress, lungs clear to auscultation bilaterally, without wheeze, crackles, rhonchi, no increased work of breathing noted, cardiac exam reveals regular rate and rhythm without murmurs/rubs/gallops, abdomen soft, nontender. Neck without cervical paraspinal muscle tenderness, no midline tenderness, no bony step-offs, no overlying skin changes, no observable or palpated anatomical abnormalities, full ROM with extension, flexion, lateral bending, strength 5/5 bilaterally, radial pulses 2+ bilaterally, SILT. Patient with history of rheumatoid arthritis which normally effects shoulder girdle, patient states aching muscle pain has been steadily improving over the past month after doing pushups in the gym, no radicular symptoms-less likely nerve impingement Course 16:15- Patient recieving 1L fluids and 1 gram IV Tylenol. Labs revealed leukopenia of 4.7, H&H stable, BUN WNL at 16, CRP elevated at 2.34, ESR elevated at 38, no electrolyte abnormalities CXR reveals patchy increased density of the right lower lung zone, with trace pleural fluid/thickening most likely pneumonia. Viral swabs negative, rapid strep negative- Less likely viral illness/strep VS- BP 142/70, pulse rate 88 beats per minute, respiratory rate of 20, afebrile with oral temp of 97.4, O2 saturation 97 percent on room air. CURB65 score of 0- patient with comorbidity of T2DM will discharge home with 5 day course of augmentin and azithromycin for coverage. Differential Diagnosis Differential Diagnoses: The differential diagnosis associated with the presentation includes Pneumonia Pharyngitis COVID Flu RSV Viral illness Cervical nerve impingement Admission/Observation Consideration of admission/observation: Escalation of care including admission/observation considered Lab Data [facility] Lab Attestation statement: I reviewed the patient's lab results. 06/15/25 14:56 06/15/25 14:56 Labs: Lab Results 06/15/25 06/15/25 06/15/25 Range/Units 09:59 14:07 14:56 WBC 4.7 L (4.8-10.8) X10*3/uL RBC 3.69 L (4.60-5.80) X10*6/uL Hgb 11.6 L (14.0-18.0) g/dl Hct 34.6 L (42.0-52.0) % MCV 93.8 (80.0-98.0) fL MCH 31.4 (27.0-33.0) pg MCHC 33.5 (31.0-36.0) g/dl RDW 13.5 (11.0-16.0) % Plt Count 159 L (160-400) X10*3/uL MPV 11.4 (9.4-12.4) fL Immature Gran % (Auto) 0.6 H (0.0-0.4) % Neut % (Auto) 80.1 H (45-73) % Lymph % (Auto) 8.5 L (20-40) % [place] % (Auto) 9.1 (2-11) % Eos % (Auto) 1.3 (0-4) % Baso % (Auto) 0.4 (0-2) % Lymph # (Auto) 0.4 L (1.2-4.9) X10*3/uL [place] # (Auto) 0.4 (0.1-1.2) X10*3/uL Eos # (Auto) 0.1 (0.0-0.4) X10*3/uL Baso # (Auto) 0.0 (0.0-0.2) X10*3/uL Abs Immat Gran (auto) 0.03 (0.00-0.03) X10*3/uL Absolute Neuts (auto) 3.8 (2.0-8.3) x10*3/uL Absolute Nucleated RBC 0.000 (0.0-0.012) X10*3/uL Nucleated RBC % (auto) 0.0 (0.0-0.2) /100WBC ESR 38 H (0-15) MM/HR Sodium 139 (135-145) mmol/L Potassium 4.3 (3.3-5.1) mmol/L Chloride 104 (96-108) mmol/L Carbon Dioxide 25 (22-29) mmol/L Anion Gap 14 (12-20) BUN 16 (9-16) mg/dL Creatinine 0.69 (0.5-1.4) mg/dL Estim Creat Clear Calc 111.6 Estimated GFR > 60 POC Glucose 92 (60-115) mg/dL Random Glucose 102 (60-115) mg/dL Calcium 9.7 (8.4-10.2) mg/dL Magnesium 1.6 (1.6-2.6) mg/dL Total Bilirubin 0.5 (0.0-1.0) mg/dL AST 23 (5-37) U/L ALT 14 (0-40) U/L Alkaline Phosphatase 61 (39-117) U/L C-Reactive Protein 2.34 H (< or = 0.50) mg/dL Total Protein 6.8 (6.5-8.0) g/dL Albumin 4.3 (3.5-5.0) g/dL Influenza Type A (PCR) NEGATIVE (Negative) Influenza Type B (PCR) NEGATIVE (Negative) RSV RNA Qual (PCR) NEGATIVE (Negative) SARS-CoV-2 RNA (RT-PCR) NEGATIVE (Negative) S. pyogenes GrpA CRISTOBAL Negative (Negative) Independent Interpretation I performed an independent interpretation of an: Plain X-Ray Interpretation: I personally interpreted the CXR without cardiomegaly, edema, there are some infiltrates present, I agree with the radiologist's interpretation Radiology Impression Discussion of test interpretation with radiology: I have reviewed the radiologist's reading. Radiologist Impression: CXR FINDINGS: On the frontal x-ray, a fissure in the mid right lung zone is visible. There are mildly coarse markings in the right lung with subtle focal increased density in the right upper lung zone and lower third lung zone. Left lung is clear. Heart and mediastinal contours are within normal limits. XR/XR chest 2V IMPRESSION: Vague patchy increased density in the right lower lung zone greater than the right upper lung zone and trace pleural fluid or thickening, early changes of pneumonia are not ruled out. Electronically signed by: Jesus Reno MD 06/15/2025 10:41 AM EDT RP Dictated By: Jesus Reno MD Signed By: <Electronically signed by Jesus Reno MD in OV> 06/15/25 1041 External Record Review External record reviewed: Inpatient record, Office record and Outpatient record Chronic Conditions Patient?s care impacted by: Diabetes and Other (Rheumatoid arthritis) Discharge Plan Discharge Clinical Impression: Pneumonia Patient Disposition: Home, Self-Care Instructions: Community Acquired Pneumonia (DC) Additional Instructions: You were evaluated in the emergency department today due to body aches and fever. Your lab work revealed a mildly elevated white blood cell count indicative of infection at 4.7. Your chest x-ray revealed infiltrates of your right lung indicative of pneumonia. Your viral swabs for flu/COVID/RSV were negative, your rapid strep test is negative for strep throat infection. You are being prescribed a 4 day course of Augmentin, azithromycin which are antibiotics to treat pneumonia, you were given your first dose in the ED today. PLEASE TAKE ONE AUGMENTIN PILL BEFORE BED TONIGHT. For management of fever please alternate 500 milligrams Tylenol and 400 milligrams of ibuprofen every 6 hours. Make sure you are getting plenty fluids, nutrition and rest for improvement. I recommend you call your primary care doctor and make a follow up appointment to ensure resolution of your symptoms. Please return to the emergency department if you have fevers over 100.4 degrees, difficulty breathing, shortness of breath, chest pain do it, or any new/worsening/concerning symptoms. Prescriptions: New amoxicillin-pot clavulanate 875-125 mg tablet 1 tab PO BID Qty: 9 0RF azithromycin 250 mg tablet 250 mg PO DAILY Qty: 4 0RF No Action folic acid 1 mg tablet 1 mg PO DAILY Qty: 90 1RF diclofenac sodium [Voltaren Arthritis Pain] 1 % gel 4 g topical QID Qty: 100 0RF Rx Instructions: apply to single knee, ankle, foot; for foot includes sole/toes/top of foot metformin 1,000 mg tablet 1,000 mg PO BID famotidine 40 mg tablet 40 mg PO DAILY capsaicin 0.025 % cream 1 appl topical BID valsartan 80 mg tablet 80 mg PO DAILY atorvastatin 40 mg tablet 40 mg PO DAILY omeprazole 40 mg capsule,delayed release(DR/EC) 40 mg PO BID insulin glargine [Lantus U-100 Insulin] 100 unit/mL solution subcut naproxen 500 mg tablet 500 mg PO BID 90 Days Qty: 180 1RF methotrexate sodium 2.5 mg tablet 20 mg PO QWEEK Qty: 96 1RF leflunomide 20 mg tablet 20 mg PO DAILY Qty: 90 1RF prednisone 5 mg tablet 5 mg PO DAILY Qty: 90 1RF Interventions: ED Discharge Assessment Last Done: 06/15/25 17:00 Discharge Date/Time: 06/15/25 18:20 Print Language: Kazakh
[2025-06-15 10:25] LABS: IDNOW Serial# 55D5AD1C; Strep A Nucleic Acid Negative (Negative)
[2025-06-15 10:47] LABS: Resp Syncy Virus RNA Qual PCR NEGATIVE (Negative); SARS COV2 PCR INHOUSE NEGATIVE (Negative)
[2025-06-15 13:48] VITALS: BP 121/75; PULSE 101; RESP 18; TEMP 36.3; O2SAT 94
[2025-06-15 14:17] LABS: Glucose, Whole Blood 92 mg/dL (60-115)
[2025-06-15] MEDS: Lactated Ringers 1,000 ML 999 ML IV (14:39)
--- OUTSIDE RECORDS SUMMARY | 2025-06-15 14:39 | XMS_ITS | Clinical Summary ---
Author Organization [facility] Address [address] [place] [address] Phone Care Team Providers Care Associate Pastor Name Role Phone Krysta Sarmiento MD Primary Care Provider [phone] Allergies No known active allergies Medications omeprazole (PriLOSEC) [address] capsule TAKE 2 CAPSULES BY MOUTH EVERY DAY 180 capsule 3 5 Active folic acid (FOLVITE) 1 mg tablet Active predniSONE (DELTASONE) 5 mg tablet Active methotrexate 2.5 mg tablet Active leflunomide (ARAVA) 20 mg tablet 5 Active blood sugar diagnostic (FreeStyle Lite Strips) test strip 1 each. 4 Active blood-glucose sensor (FreeStyle Rogerio 3 Sensor) deviceIndications :Type 2 diabetes mellitus with other specified complication, without long-term current use of insulin ([facility] V24, [facility] V28) 1 EA 4 (four) times a day. Box = Kit = EA 2 each 5 5 07/24/20 25 Active atorvastatin (LIPITOR) 40 mg tablet TAKE 1 TABLET BY MOUTH EVERY DAY 90 tablet 3 5 Active metFORMIN (GLUCOPHAGE) 1,000 mg tabletIndications :Type 2 diabetes mellitus with other specified complication, without long-term current use of insulin (CMS/HCC V24, CMS/HCC V28) Take 1 tablet (1,000 mg total) by mouth 2 (two) times a day with meals. 180 each 3 5 02/25/20 26 Active naproxen (NAPROSYN) 500 mg tablet Take 1 tablet (500 mg total) by mouth 1 (one) time each day. 60 tablet 4 5 Active Lantus Solostar U-100 Insulin 100 unit/mL (3 mL) injection penIndications:Ty pe 2 diabetes mellitus with other specified complication, without long-term current use of insulin ([facility] V24, [facility] V28) Inject 20 Units under the skin at bedtime. 45 mL 5 5 Active BD Ultra-Fine Micro Pen Needle 32 gauge x 1/4 needle USE DAILY WITH INSULIN 100 each 5 Active blood-glucose,rec eiver,cont (FreeStyle Rogerio 3 [place]) miscIndications:T ype 2 diabetes mellitus with other specified complication, without long-term current use of insulin ([facility] V24, [facility] V28) 4 (four) times a day. 1 each 1 5 Active diclofenac (VOLTAREN) 1 % topical gel APPLY 1 GRAM TOPICALLY DAILY. 100 g 5 Active valsartan (DIOVAN) 80 mg tablet Take 1 tablet (80 mg total) by mouth 1 (one) time each day. 90 each 1 5 10/18/20 25 Active lancets (OneTouch Delica Plus Lancet) 30 gaugeIndications: Type 2 diabetes mellitus without complications ([facility] V24, [facility] V28) Use as instructed 100 each 5 Active blood-glucose sensor (FreeStyle Rogerio 3 Plus Sensor) deviceIndications :Type 2 diabetes mellitus with other specified complication, without long-term current use of insulin ([facility] V24, [facility] V28) 1 kit 4 (four) times a day. 2 kit 11 5 Active Active Problems Problem Noted Date Diagnosed Date Mixed hyperlipidemia 04/21/2025 Primary hypertension 01/25/2025 Type 2 diabetes mellitus, wi thout long-term current use of insulin ([facility] V24, [facility] V28) 01/25/2025 Rheumatoid arthritis ([facility] V24, [facility] V28) 01/25/2025 Encounters Date Type Department Care Team Description 04/21/2025 10:30 AM EDT Office Visit Internal Medicine - [place] [address] [facility] [address] [place] [phone] Krysta Sarmiento MD Rheumatoid arthritis involving multiple sites, unspecified whether rheumatoid factor present ([facility] V24, [facility] V28) (Primary Dx); Type 2 diabetes mellitus without complications ([facility] V24, [facility] V28); Type 2 diabetes mellitus with other specified complication, without long-term current use of insulin ([facility] V24, [facility] V28); Primary hypertension; Mixed hyperlipidemia 04/21/2025 Telephone Internal Medicine - [place] [address] [facility] [address] [place] [phone] Ngoc Chase [place] DME (CGM) 03/17/2025 11:30 AM EDT Consult Endocrinology [address] [phone] Laury Salazar PA Type 2 diabetes mellitus with other specified complication, without long-term current use of insulin ([facility] V24, [facility] V28) (Primary Dx); Primary hypertension; Hyperlipidemia, unspecified hyperlipidemia type from Last 3 Months Medical History Medical History Date Comments Seropositive rheumatoid arth ritis ([facility] V24, [facility] V28) 06/27/2021 DX:Seropositive rheumatoid arthritis (HCC) Diabetes mellitus ([facility] V 24, [facility] V28) 06/27/2021 DX:Diabetes mellitus (HCC) Social History Tobacco Use Types Packs/Day Years Used Date Smoking Tobacco: Never Smokeless Tobacco: Never Tobacco Cessation:Counseling Given: Not Answered Alcohol Use Standard Drinks/Week Comments Yes 2 (1 standard drink = 0.6 oz pur e alcohol) Sex and Gender Information Value Date Recorded Sex Assigned at Male 11/17/2024 7:56 PM EST Legal Sex Male 1:05 PM EST Gender Identity Male 11/17/2024 7:56 PM EST Sexual Orientation Straight 11/17/2024 7: 56 PM EST Obstetrics History Last Filed Vital Signs Vital Sign Reading Time Taken Comments Blood Pressure 120/70 04/21/2025 10:31 AM EDT Pulse 65 04/21/2025 10:31 AM EDT Temperature 36.2 C (97.2 F) 04/21/2025 10:31 AM EDT Respiratory Rate 20 11/17/2024 5:57 PM EST Oxygen Saturation 96% 04/21/2025 10:31 AM EDT Inhaled Oxygen Concentration - - Weight 84 kg (185 lb 3.2 oz) 04/21/2025 10:31 AM EDT Height 177.8 cm (5' 10 ) 04/21/2025 10:31 AM EDT Body Mass Index 26.57 04/21/2025 10:31 AM EDT Plan of Treatment Upcoming Encounters Date Type Department Care Team (Late st Contact Info) Description 06/23/2025 11:00 AM EDT Office Visit Endocrinology - [place] [address] [place] [phone] Laury Salazar PA [address] [place] [address] Health Maintenance Due Date Last Done Comments Diabetes: Annual Foot Exam 1971 Diabetes: Annual Retina Eye Exam 1971 DTaP,Tdap,and Td Vaccines (1 - Tdap) 1980 Pneumococcal Vaccine: 50+ Years (1 of 2 - PCV) 1980 Zoster Vaccines (1 of 2) 2011 RSV Immunization Adult Patients (1 - Risk 60-74 years 1-dose series) 2021 Colorectal Cancer Screening: Colonoscopy 09/24/2022 HIV Screening 09/24/2022 Social Influencers of Health Screening 09/24/2022 COVID-19 Vaccine (4 - 2023-2 5 season) 2024 11/14/2021, 03/03/2021, 02/11/2021 Depression Screening 10/27/2024 Influenza Vaccine (#1) 2025 Diabetes: Blood Sugar Contro l Test (HGBA1C) 09/11/2025 03/11/2025 Diabetes: Annual Urine Albumin-Creatinine Ratio (uACR) 03/11/2026 03/11/2025 Diabetes: Annual GFR (Glomerular Filtration Rate) 03/11/2026 03/11/2025 Hypertension/CHF/CAD Annual BMP Blood Test 03/11/2026 03/11/2025 Cholesterol Screening (Lipid Panel) 03/11/2030 03/11/2025 Hepatitis C Screening Completed 10/07/2022 HIB Vaccines [...] patient's age to complete this topic Meningococcal B Vaccine Aged Out No l onger eligible based on patient's age to complete this topic RSV Immunization Patients Under 20 months Aged Out No longer eligible b ased on patient's age to complete this topic Varicella Vaccines Aged Out No longer eligible based on patient's age to complete this topic Procedures Procedure Name Priority Date/Time Associated Diagnosis Comments MICROALBUMIN CREATININE URINE RATIO Routine 03/11/2025 8:53 AM EDT Type 2 diabetes mellitus with other specified complication, without long-term current use of insulin ([facility] V24, [facility] V28) CREATININE, SERUM Routine 03/11/2025 8:5 3 AM EDT Type 2 diabetes mellitus with other specified complication, without long-term current use of insulin ([facility] V24, [facility] V28) HEMOGLOBIN A1C Routine 03/11/2025 8:53 AM EDT Type 2 diabetes mellitus with other specified complication, without long-term current use of insulin ([facility] V24, [facility] V28) LIPID PANEL WITH REFLEX TO DIRECT LDL Routine 03/11/2025 8:53 AM EDT Type 2 diabetes mellitus, without long-term current use of insulin ([facility] V24, [facility] V28) Primary hypertension Lipid screening from Last 3 Months or Most Recently Relevant to Health Maintenance Results * Lipid panel with reflex to direct LDL (03/11/2025 8:53 AM EDT) Cholesterol 118 0 - 200 mg/dL LAB CHEMISTRY METHOD 03/11/2025 1:[address] [facility] Triglycerides 57 0 - 150 mg/dL LAB CHEMISTRY METHOD 03/11/2025 1:[address] [facility] HDL 79 >=40 mg/dL LAB CHEMISTRY METHOD 03/11/2025 1:[address] [facility] LDL Calculated 28 0 - 100 mg/dL LAB CHEMISTRY METHOD 03/11/2025 1:[address] [facility] VLDL Cholesterol Lane 11.4 mg/dL LAB CHEMISTRY METHOD 03/11/2025 1:[address] [facility] Non HDL Chol. (LDL+VLDL) 39 <145 mg/dL LAB CHEMISTRY METHOD 03/11/2025 1:[address] [facility] Chol/HDL Ratio 1.5 0.0 - 4.4 LAB CHEMISTRY METHOD 03/11/2025 1:[address] [facility] Blood Venous blood specimen / Unknown Venipuncture / Unknown 03/11/2025 8:53 AM EDT 03/11/2025 8:53 AM EDT us Azeb Garrido MD LAB BLOOD ORDERABLES Final Resul t [facility] [address] [place] [address], * Microalbumin creatinine urine ratio (03/11/2025 8:53 AM EDT) Creatinine, Urine 162.0 mg/dL LAB CHEMISTRY METHOD 03/11/2025 12:[address] [facility] Microalb, Ur 13.1 0.0 - 29.0 mg/L LAB CHEMISTRY METHOD 03/11/2025 12:[address] [facility] Microalb/Creat Ratio 8 <30 mg/g creat LAB CHEMISTRY METHOD 03/11/2025 12:[address] [facility] Urine Urine specimen obtained by clean catch procedure / Unknown Non-blood Collection / Unknown 03/11/2025 8:53 AM EDT 03/11/2025 8:53 AM EDT Azeb Garrido MD LAB URINE ORDERABLES Final Resul t Performing Organization Address [facility] Co de Phone Number [facility] [address] [place] [address], * Creatinine (03/11/2025 8:53 AM EDT) Creatinine 0.86 0.70 - 1.30 mg/dL LAB CHEMISTRY METHOD 03/11/2025 1:[address] [facility] eGFR 97 >=60 mL/min/1. 73m2 LAB CHEMISTRY METHOD 03/11/2025 1:[address] [facility] Comment:Calculation based on the Chronic Kidney Disease Epidemiology Collaboration (CKD-EPI) equation refit without adjustment for race. Blood Venous blood specimen / Unknown Venipuncture / Unknown 03/11/2025 8:53 AM EDT 03/11/2025 8:53 AM EDT Azeb Garrido MD LAB BLOOD ORDERABLES Final Resul t Performing Organization Address [facility]/ZIP Co de Phone Number [facility] [address] [place] [address], [place] [phone] * (ABNORMAL) Hemoglobin A1c (03/11/2025 8:53 AM EDT) Hemoglobin A1C 10.1(H) <6.5 % LAB CHEMISTRY METHOD 03/11/2025 12:[address] [facility] Mean Bld Glu Estim. 243 mg/dL LAB CHEMISTRY METHOD 03/11/2025 12:01 PM EDT [facility] Blood Venous blood specimen / Unknown Venipuncture / Unknown 03/11/2025 8:53 AM EDT 03/11/2025 8:53 AM EDT us Azeb Garrido MD LAB BLOOD ORDERABLES Final Resul t [facility] [address] [place] [address], from Last 3 Months or Most Recently Relevant to Health Maintenance Insurance [facility] [employer] Care Teams Associate Pastor Relationship Specialty Start Date End Date Krysta Sarmiento MD [address] [facility] [address] [place] [address] PCP - General 09/10/23
[2025-06-15 15:00] LABS: MANUAL DIFF FLAG NO
[2025-06-15 15:06] LABS: Hematocrit 34.6 % (42.0-52.0); Hemoglobin 11.6 g/dl (14.0-18.0); Imm Gran Abs Auto 0.03 X10*3/uL (0.00-0.03); Imm Gran Pct Auto 0.6 % (0.0-0.4); Lymphocytes Absolute Auto 0.4 X10*3/uL (1.2-4.9); Mean Corpuscular HGB Conc 33.5 g/dl (31.0-36.0); Mean Corpuscular Hemoglobin 31.4 pg (27.0-33.0); Mean Corpuscular Volume 93.8 fL (80.0-98.0); NRBC Abs Auto 0.000 X10*3/uL (0.0-0.012); NRBC Pct Auto 0.0 /100WBC (0.0-0.2); Platelet Count 159 X10*3/uL (160-400); Red Blood Count 3.69 X10*6/uL (4.60-5.80); White Blood Count 4.7 X10*3/uL (4.8-10.8)
[2025-06-15 15:22] LABS: Alanine Aminotransferase 14 U/L (0-40); Albumin Level 4.3 g/dL (3.5-5.0); Alkaline Phosphatase 61 U/L (39-117); Anion Gap 14 (12-20); Aspartate Amino Transferase 23 U/L (5-37); Blood Urea Nitrogen 16 mg/dL (9-16); Calcium 9.7 mg/dL (8.4-10.2); Carbon Dioxide 25 mmol/L (22-29); Chloride 104 mmol/L (96-108); Creatinine Clr Calc Pharmacy 111.6; Estimated Glomerular Filt Rate > 60; Magnesium 1.6 mg/dL (1.6-2.6); Potassium 4.3 mmol/L (3.3-5.1); Sodium 139 mmol/L (135-145); Total Protein 6.8 g/dL (6.5-8.0)
--- NOTE | 2025-06-15 16:02 | PC.NURSE ---
patient a&ox3, iv inserted, labs drawn, vss, pt had cxr, ivf running per order, pt medicated with iv pain meds, call lyon within reach, plan of care ongoing
[2025-06-15 16:15] VITALS: BP 148/70; PULSE 88; RESP 20; TEMP 36.6; O2SAT 97
[2025-06-15 17:00] VITALS: BP 138/88; PULSE 91; RESP 18; TEMP 36.7
== END 2025-06-15 18:20 | disposition home or self-care (01) ==
PROVIDERS: Registered Nurse Emergency; Emergency Provider Emergency Medicine; PCP Internal Medicine
DX: J18.9 Pneumonia, unspecified organism (principal); R50.9 Fever, unspecified; E11.9 Type 2 diabetes mellitus without complications; M79.10 Myalgia, unspecified site; J02.9 Acute pharyngitis, unspecified; R09.81 Nasal congestion; M54.2 Cervicalgia; M79.602 Pain in left arm; M79.601 Pain in right arm; Z03.818 Encounter for observation for suspected exposure to other biological agents ruled out; Z79.899 Other long term (current) drug therapy; Z79.4 Long term (current) use of insulin
CPT/HCPCS: 36415; 71046; 80053; 82947; 83735; 85025; 85652; 86140; 87637; 87651; 96361; 96374; 99283; 99284; 99285; J0131; J7120

== ENCOUNTER → 2025-06-15 09:49 | Outpatient (BNV) | payer OTHER, SELFPAY | PROVIDERS: PCP Internal Medicine; Visit Provider Radiology Diagnostic Radiology | DX: R05.9 Cough, unspecified (principal) | CPT/HCPCS: 71046 ==

== ENCOUNTER 2025-08-19 10:59 | Outpatient (REF) | payer OTHER, SELFPAY ==
--- OUTSIDE RECORDS SUMMARY | 2024-12-01 10:00 | XMS_ITS ---
Author Organization [facility] Address [address] [place] [id number] Care Team Providers Care Cross Cut Saw Operator Name Role Phone NO, PCP Primary Care Provider [facility] Unavailable [phone] [facility] Unavailable [phone] REASON FOR VISIT Dental - Prophy only Medications Medication SIG (Take, Route, Fr equency, Duration) Notes Start Date End Date Status VALSARTAN Active PREDNISONE 10 mg 1 tab(s) orally once a day Active FAMOTIDINE Active METFORMIN Active LANTUS Active ATORVASTATIN Active FOLIC ACID Active NAPROXEN Active Encounters Encounter Location Date Provider Diagnosis [address] [address] 12/01/2024 [facility] Plan Of Treatment No Information Progress Notes * fYn AVILADOB: (65 yo M)Acc No.[id number]:12/01/2024 Dental Notes Patient: Francisca BENÍTEZ Yfn VARGAS Provider: Chicho Antonio :1960 A ge:64 Y S ex:Male Date:12/01/2024 Address:[address] [place], [place] [id number] Pcp:PCP NO Subjective: * Chief Complaints: * 1 . Dental - Prophy only. * Medical History: * Medications: T aking LANTUS , Taking METFORMIN , Taking FAMOTIDINE , Taking NAPROXEN , Taking FOLIC ACID , Taking ATORVASTATIN , Taking VALSARTAN , Taking PREDNISONE 10 mg tablet 1 tab(s) orally once a day Objective: * Vitals: Assessment: Plan: * Treatment: * Images: Billing Information: * Visit Code: * Procedure Codes: * Electronic signature of [facility] on 08/19/2025 at 01:05 PM EDT Sign off status: Pending * Provider: Chicho Antonio Date: 0 12/01/2024 Generated for Mounika cronin/Mauri/Arlene on: 1 01:05 PM EDT
--- OUTSIDE RECORDS SUMMARY | 2025-05-10 05:52 | XMS_ITS ---
Author Organization [facility] Address [address] [place] [phone] Care Team Providers Care Senior Energy Analyst Name Role Phone NO, PCP Primary Care Provider [phone] [facility], [facility] Unavailable [phone] Alejandro Byers Unavailable [phone] REASON FOR VISIT appt Encounters Encounter Location Date Provider Diagnosis [address] [address] 05/10/2025 Alejandro Byers Plan Of Treatment No Information Progress Notes * Yfn SOTODOB: (65 yo M)Acc No.[id number]:05/10/2025 Patient: Francisca WINYfn HERNANDEZ :1960 A ge:64 Y S ex:Male Address:[address] [place] [address], [address] * * Date:
--- OUTSIDE RECORDS SUMMARY | 2025-07-09 17:00 | XMS_ITS ---
Author Organization [facility] Address [address] [place] [address] Care Team Providers Care Product Owner Name Role Phone NO, PCP Primary Care Provider [phone] [facility], [facility] Unavailable [phone] Migration, Provider Unavailable Unavailable REASON FOR VISIT Multum To Medispan Conversion Encounter Medications Medication SIG (Take, Route, Frequency, Duration) Notes Start Date End Date Status Naproxen *Please review a nd pick correct strength-formulatio n from Medispan options. If intended option is not shown, discontinue and re-order from Quick Search* Active Folic Acid *Please review a nd pick correct strength-formulatio n from Medispan options. If intended option is not shown, discontinue and re-order from Quick Search* Active Atorvastatin Calcium *Please rev iew and pick correct strength-formulatio n from Medispan options. If intended option is not shown, discontinue and re-order from Quick Search* Active Valsartan *Please review a nd pick correct strength-formulatio n from Medispan options. If intended option is not shown, discontinue and re-order from Quick Search* Active predniSONE 10 MG 1 tab(s) orally once a day Active metFORMIN HCl *Please review a nd pick correct strength-formulatio n from Medispan options. If intended option is not shown, discontinue and re-order from Quick Search* Active Famotidine *Please review a nd pick correct strength-formulatio n from Medispan options. If intended option is not shown, discontinue and re-order from Quick Search* Active Lantus *Please review a nd pick correct strength-formulatio n from Medispan options. If intended option is not shown, discontinue and re-order from Quick Search* Active Encounters Encounter Location Date Provider Diagnosis [facility] [address] [place] [address] 07/09/2025 Provider Migration Plan Of Treatment No Information Progress Notes * Yfn AVILADOB: (65 yo M)Acc No.[id number]:07/09/2025 Patient: Yfn STOVER Provider: :1960 A ge:65 Y S ex:Male Date:07/09/2025 Address:[address] [place], [place] [id number] Pcp:PCP NO Subjective: * Chief Complaints: * 1 . Multum To Medispan Conversion Encounter. * Medical History: * Medications: T aking Lantus , Notes to Pharmacist: *Please review and pick correct strength-formulation from Medispan options. If intended option is not shown, discontinue and re-order from Quick Search*, Taking metFORMIN HCl , Notes to Pharmacist: *Please review and pick correct strength-formulation from Medispan options. If intended option is not shown, discontinue and re-order from Quick Search*, Taking Famotidine , Notes to Pharmacist: *Please review and pick correct strength-formulation from Medispan options. If intended option is not shown, discontinue and re-order from Quick Search*, Taking Naproxen , Notes to Pharmacist: *Please review and pick correct strength-formulation from Medispan options. If intended option is not shown, discontinue and re-order from Quick Search*, Taking Folic Acid , Notes to Pharmacist: *Please review and pick correct strength-formulation from Medispan options. If intended option is not shown, discontinue and re-order from Quick Search*, Taking Atorvastatin Calcium , Notes to Pharmacist: *Please review and pick correct strength-formulation from Medispan options. If intended option is not shown, discontinue and re-order from Quick Search*, Taking Valsartan , Notes to Pharmacist: *Please review and pick correct strength-formulation from Medispan options. If intended option is not shown, discontinue and re-order from Quick Search*, Taking predniSONE 10 MG Tablet 1 tab(s) orally once a day Objective: * Vitals: Assessment: Plan: * Treatment: * Images: Billing Information: * Visit Code: * Procedure Codes: * Electronic signature of Prov ider Migration on 08/19/2025 at 01:05 PM EDT Sign off status: Pending * Provider: Date: 0 07/09/2025 Generated for Mounika cronin/Mauri/Arlene on: 01:05 PM EDT
--- OUTSIDE RECORDS SUMMARY | 2025-08-19 13:05 | XMS_ITS | Clinical Summary ---
Author Organization [facility] Address [address] [place] [address] Phone Care Team Providers Care Deputy Commissioner Name Role Phone Krysta Sarmiento MD Primary Care Provider [phone] Allergies No known active allergies Medications omeprazole (PriLOSEC) [address] capsule TAKE 2 CAPSULES BY MOUTH EVERY DAY 180 capsule 3 5 Active folic acid (FOLVITE) 1 mg tablet Active predniSONE (DELTASONE) 5 mg tablet Active methotrexate 2.5 mg tablet Active leflunomide (ARAVA) 20 mg tablet 5 Active atorvastatin (LIPITOR) 40 mg tablet TAKE 1 TABLET BY MOUTH EVERY DAY 90 tablet 3 5 Active metFORMIN (GLUCOPHAGE) 1,000 mg tabletIndications :Type 2 diabetes mellitus with other specified complication, without long-term current use of insulin ([facility] V24, [facility] V28) Take 1 tablet (1,000 mg total) [...] complication, without long-term current use of insulin ([facility] V24, [facility] V28) Inject 20 Units under the skin at bedtime. 45 mL 5 Active BD Ultra-Fine Micro Pen Needle 32 gauge x 1/4 needle USE DAILY WITH INSULIN 100 each 5 Active diclofenac (VOLTAREN) 1 % topical gel APPLY 1 GRAM TOPICALLY DAILY. 100 g 5 Active valsartan (DIOVAN) 80 mg tablet Take 1 tablet (80 mg total) by mouth 1 (one) time each day. 90 each 1 5 10/18/20 25 Active lancets ([employer] Delica Plus Lancet) 30 gaugeIndications: Type 2 diabetes mellitus without complications ([facility] [place], [facility] V28) Use as instructed 100 each 5 Active blood sugar diagnostic (FreeStyle Lite Strips) test stripIndications: Type 2 diabetes mellitus with other specified complication, without long-term current use of insulin ([facility] [place], [facility] V[facility]) Use to check 2 times a day 100 each 3 5 Active blood-glucose,rec eiver,cont (FreeStyle Rogerio 3 [place]) miscIndications:T ype 2 diabetes mellitus with other specified complication, without long-term current use of insulin ([facility] [place], [facility] V28) 6 (six) times a day. 1 each 5 Active blood-glucose sensor (FreeStyle Rogerio 3 Plus Sensor) deviceIndications :Type 2 diabetes mellitus with other specified complication, without long-term current use of insulin ([facility] [place], [facility] V[facility]) 1 kit 6 (six) times a day. 2 kit 5 Active Active Problems Problem Noted Date Diagnosed Date Mixed hyperlipidemia 04/21/2025 Primary hypertension 01/25/2025 Type 2 diabetes mellitus, wi thout long-term current use of insulin ([facility], [facility] V[facility]) 01/25/2025 Rheumatoid arthritis ([facility], [facility] V[facility]) 01/25/2025 Encounters Date Type Department Care Team Description 06/29/2025 10:45 AM EDT Office Visit Internal Medicine - [address] [place] [address] Krysta Sarmiento MD Hospital discharge follow-up (Primary Dx); Type 2 diabetes mellitus with other specified complication, without long-term current use of insulin ([facility] V24, [facility] V28); Primary hypertension; Rheumatoid arthritis involving multiple sites, unspecified whether rheumatoid factor present ([facility] V24, [facility] V28); Mixed hyperlipidemia 06/23/2025 11:00 AM EDT Office Visit Endocrinology [address] [address] Laury Salazar PA Type 2 diabetes mellitus with other specified complication, without long-term current use of insulin ([facility] V24, [facility] V28) (Primary Dx); Primary hypertension; Mixed hyperlipidemia 06/17/2025 Telephone Internal Medicine - [address] [place] [address] Ngoc Chase MA from Last 3 Months Medical History Medical History Date Comments Seropositive rheumatoid arth ritis ([facility] V24, [facility] V28) 06/27/2021 DX:Seropositive rheumatoid arthritis (HCC) Diabetes mellitus ([facility] V 24, [facility] V28) 06/27/2021 DX:Diabetes mellitus (HCC) Social History [...] Sign Reading Time Taken Comments Blood Pressure 132/68 06/29/2025 10:58 AM EDT Pulse 81 06/29/2025 10:58 AM EDT Temperature 35.9 C (96.6 F) 06/23/2025 11:03 AM EDT Respiratory Rate 20 11/17/2024 5:57 PM EST Oxygen Saturation 97% 06/29/2025 10:58 AM EDT Inhaled Oxygen Concentration - - Weight 83.9 kg (185 lb) 06/29/2025 10:58 AM EDT Height 177.8 cm (5' 10 ) 06/29/2025 10:58 AM EDT Body Mass Index 26.54 06/29/2025 10:58 AM EDT Plan of Treatment Upcoming Encounters Date Type Department Care Team (Late st Contact Info) Description 10/12/2025 2:00 PM EST Office Visit Endocrinology - [address] [place] [address] Laury Salazar PA [address] [place] [address] Health Maintenance Due Date Last Done Comments Colorectal Cancer Screening: Colonoscopy 1961 Diabetes: Annual Foot Exam 1971 Diabetes: Annual Retina Eye Exam 1971 DTaP,Tdap,and Td Vaccines (1 - Tdap) 1980 Pneumococcal Vaccine: 50+ Years (1 of 2 - PCV) 1980 RSV Immunization Adult Patients (1 - Risk 50-74 years 1-dose series) 2011 Zoster Vaccines (1 of 2) 2011 HIV Screening 09/24/2022 Social Influencers of Health Screening 09/24/2022 Depression Screening 10/27/2024 COVID-19 Vaccine (4 - 2024-2 6 season) 2025 11/14/2021, 03/03/2021, 02/11/2021 Influenza Vaccine (#1) 2025 Diabetes: Blood Sugar Contro l Test (HGBA1C) 12/24/2025 06/23/2025, 03/11/2025 Diabetes: Annual Urine Albumin-Creatinine Ratio (uACR) 03/11/2026 03/11/2025 Diabetes: Annual GFR (Glomerular Filtration Rate) 06/23/2026 06/23/2025, 03/11/2025 Hypertension/CHF/CAD Annual BMP Blood Test 06/23/2026 06/23/2025, 03/11/2025 Cholesterol Screening (Lipid Panel) 03/11/2030 03/11/2025 [...] Procedure Name Priority Date/Time Associated Diagnosis Comments HEMOGLOBIN A1C Routine 06/23/2025 12:18 PM EDT Type 2 diabetes mellitus with other specified complication, without long-term current use of insulin ([facility] V24, [facility] V28) BASIC METABOLIC PANEL Routine 06/23/2025 12:17 PM EDT Type 2 diabetes mellitus with other specified complication, without long-term current use of insulin ([facility] V24, [facility] V28) POC GLUCOSE Routine 06/23/2025 10:58 AM EDT Type 2 diabetes mellitus with other specified complication, without long-term current use of insulin ([facility] V24, [facility] V28) EXTERNAL XRAY REPORT 06/15/2025 MICROALBUMIN CREATININE URINE RATIO Routine 03/11/2025 8:53 AM EDT Type 2 diabetes mellitus with other specified complication, without long-term current use of insulin ([facility] V24, [facility] V28) LIPID PANEL WITH REFLEX TO DIRECT LDL Routine 03/11/2025 8:53 AM EDT Type 2 diabetes mellitus, without long-term current use of insulin ([facility] V24, [facility] V28) Primary hypertension Lipid screening from Last 3 Months or Most Recently Relevant to Health Maintenance Results * (ABNORMAL) Hemoglobin A1c (06/23/2025 12:18 PM EDT) Pathologist [facility] Hemoglobin A1C 7.7(H) <6.5 % LAB CHEMISTRY METHOD 06/23/2025 6:31 PM EDT [facility] Mean Bld Glu Estim. 174 mg/dL LAB CHEMISTRY METHOD 06/23/2025 6:31 PM EDT [facility] Blood Venous blood specimen / Unknown Venipuncture / Unknown 06/23/2025 12:18 PM EDT 06/23/2025 12:18 PM EDT Laury SAUER LAB BLOOD ORDERABLES Final Result [facility] [address] [place] [address], * (ABNORMAL) Basic metabolic panel (06/23/2025 12:17 PM EDT) [facility] Sodium 139 133 - 145 mmol/L LAB CHEMISTRY METHOD 06/23/2025 5:14 PM T [facility] Potassium 4.6 3.5 - 5.5 mmol/L LAB CHEMISTRY METHOD 06/23/2025 5:14 PM T [facility] Chloride 107 96 - 110 mmol/L LAB CHEMISTRY METHOD 06/23/2025 5:14 PM EDT [facility] CO2 27 21 - 32 mmol/L LAB CHEMISTRY METHOD 06/23/2025 5:14 PM EDT [facility] Anion Gap 5 3 - 11 LAB CHEMISTRY METHOD 06/23/2025 5:14 PM [facility] Glucose 211(H) 70 - 100 mg/dL LAB CHEMISTRY METHOD 06/23/2025 5:14 PM EDT [facility] BUN 9 5 - 25 mg/dL LAB CHEMISTRY METHOD 06/23/2025 5:14 PM EDT [facility] Creatinine 0.85 0.70 - 1.30 mg/dL LAB CHEMISTRY METHOD 06/23/2025 5:14 PM EDT [facility] eGFR 97 >=60 mL/min/1. 73m2 LAB CHEMISTRY METHOD 06/23/2025 5:14 PM EDT [facility] Comment:Calculation based on the Chronic Kidney Disease Epidemiology Collaboration (CKD-EPI) equation refit without adjustment for race. BUN/Creatinine Ratio 10.6 LAB CHEMISTRY METHOD 06/23/2025 5:14 PM EDT [facility] Calcium 8.6 8.5 - 10.5 mg/dL LAB CHEMISTRY METHOD 06/23/2025 5:14 PM EDT [facility] Blood Venous blood specimen / Unknown Venipuncture / Unknown 06/23/2025 12:17 PM EDT 06/23/2025 12:17 PM EDT us Laury SAUER LAB BLOOD ORDERABLES Final Result [facility] [address] [place] [address], [place] [phone] * POC glucose manually resulted (06/23/2025 10:58 AM EDT) Glucose POC 230 mg/dL Blood Capillary blood specimen / Unknown 06/23/2025 10:58 AM EDT Laury SAUER POINT OF CARE TEST ENTER/ED IT ORDERABLES Final Result * External Xray Report (06/15/2025) Anatomical Region Laterality Modality Radiographic Jocelyn ging us Provider [facility] IMG XR PROCEDURES Final Result * Lipid panel with reflex to direct LDL (03/11/2025 8:53 AM EDT) Cholesterol 118 0 - 200 mg/dL LAB CHEMISTRY METHOD 03/11/2025 1:10 PM EDT [facility] Triglycerides 57 0 - 150 mg/dL LAB CHEMISTRY METHOD 03/11/2025 1:10 PM EDT [facility] HDL 79 >=40 mg/dL LAB CHEMISTRY METHOD 03/11/2025 1:10 PM EDT [facility] LDL Calculated 28 0 - 100 mg/dL LAB CHEMISTRY METHOD 03/11/2025 1:10 PM EDT [facility] VLDL Cholesterol Lane 11.4 mg/dL LAB CHEMISTRY METHOD 03/11/2025 1:10 PM EDT [facility] Non HDL Chol. (LDL+VLDL) 39 <145 mg/dL LAB CHEMISTRY METHOD 03/11/2025 1:10 PM EDT [facility] Chol/HDL Ratio 1.5 0.0 - 4.4 LAB CHEMISTRY METHOD 03/11/2025 1:10 PM EDT [facility] Blood Venous blood specimen / Unknown Venipuncture / Unknown 03/11/2025 8:53 AM EDT 03/11/2025 8:53 AM EDT us Azeb Garrido MD LAB BLOOD ORDERABLES Final Resul t [facility] [address] [place] [address], * Microalbumin creatinine urine ratio (03/11/2025 8:53 AM EDT) Creatinine, Urine 162.0 mg/dL LAB CHEMISTRY METHOD 03/11/2025 12:08 PM EDT [facility] Microalb, Ur 13.1 0.0 - 29.0 mg/L LAB CHEMISTRY METHOD 03/11/2025 12:08 PM EDT [facility] Microalb/Creat Ratio 8 <30 mg/g creat LAB CHEMISTRY METHOD 03/11/2025 12:08 PM EDT [facility] Urine Urine specimen obtained by clean catch procedure / Unknown Non-blood Collection / Unknown 03/11/2025 8:53 AM EDT 03/11/2025 8:53 AM EDT us Azeb Garrido MD LAB URINE ORDERABLES Final Resul t [facility] [address] [place] [address], from Last 3 Months or Most Recently Relevant to Health Maintenance Insurance [facility] [employer] Care Teams Deputy Commissioner Relationship Specialty Start Date End Date Krysta Sarmiento MD [address] [address] PCP - General 09/10/23
--- OUTSIDE RECORDS SUMMARY | 2025-08-19 13:05 | XMS_ITS | Patient Health Record ---
Author Organization [facility] Address [address] [place] [address] Care Team Providers Care Optic Fibre Drawer Name Role Phone NO, PCP Primary Care Provider [facility] Unavailable [phone] [place] Unavailable [phone] Alejandro Byers Unavailable [phone] Migration, Provider Unavailable Unavailable Allergies No Known Allergies Reason For Referral No Information Medications Medication SIG (Take, Route, Frequency, Duration) Notes Start Date End Date Status predniSONE 10 MG 1 tab(s) orally once a day Active Valsartan *Please review a nd pick correct strength-formulatio n from Medispan options. If intended option is not shown, discontinue and re-order from Quick Search* Active Naproxen *Please review a nd pick correct [...] discontinue and re-order from Quick Search* Active metFORMIN HCl *Please review a nd pick correct strength-formulatio n from Medispan options. If intended option is not shown, discontinue and re-order from Quick Search* Active Lantus *Please review a nd pick correct strength-formulatio n from Medispan options. If intended option is not shown, discontinue and re-order from Quick Search* Active Vital Signs Temperature 97.9 degrees Fahrenheit 08/04/2025 Lot # [id number] SEPTO LS Blood pressure diastolic 69 08/04/2025 Lot # [id number] SEPTO LS Blood pressure systolic 115 08/04/2025 Lot # [id number] SEPTO LS Encounters Encounter Location Date Provider Diagnosis [facility] [address] [place], [place] [id number] 08/05/2025 [facility] [address] [place] [address] 11/02/2024 [place] [facility] [address] [place] [phone] 05/12/2025 Alejandro Byers [facility] [address] [place] [phone] 2025 Alejandro Byers [facility] [address] [place] [phone] 08/04/2025 Alejandro Byers [id number] [place] [address] 07/09/2025 Provider [facility] [address] [place] [phone] 08/24/2024 Alejandro Byers [facility] [address] [place] [phone] 05/10/2025 Alejandro Byers Plan Of Treatment No Information Insurance Providers Payer Name Payer Address Payer Phone Subscriber Number Group Number Insured Name Patient Relationship to Insured Coverage Start Date Coverage End Date [place] Standard [address] [place] [address] [id number] Yfn Soto Self - patient is the insured Health Safety [facility] [address] [place] [address] [id number] Yfn Soto Self - patient is the insured Medical (General) History Medical History History ICD Code Arthritis Diabetes Type 2
[2025-08-19 13:26] LABS: MANUAL DIFF FLAG NO
[2025-08-19 13:34] LABS: Hematocrit 37.7 % (42.0-52.0); Hemoglobin 12.5 g/dl (14.0-18.0); Imm Gran Abs Auto 0.02 X10*3/uL (0.00-0.03); Imm Gran Pct Auto 0.5 % (0.0-0.4); Lymphocytes Absolute Auto 1.4 X10*3/uL (1.2-4.9); Mean Corpuscular HGB Conc 33.2 g/dl (31.0-36.0); Mean Corpuscular Hemoglobin 31.4 pg (27.0-33.0); Mean Corpuscular Volume 94.7 fL (80.0-98.0); NRBC Abs Auto 0.000 X10*3/uL (0.0-0.012); NRBC Pct Auto 0.0 /100WBC (0.0-0.2); Platelet Count 194 X10*3/uL (160-400); Red Blood Count 3.98 X10*6/uL (4.60-5.80); White Blood Count 4.3 X10*3/uL (4.8-10.8)
[2025-08-19 14:02] LABS: Alanine Aminotransferase 26 U/L (0-40); Albumin Level 4.5 g/dL (3.5-5.0); Alkaline Phosphatase 55 U/L (39-117); Anion Gap 13 (12-20); Aspartate Amino Transferase 28 U/L (5-37); Blood Urea Nitrogen 11 mg/dL (9-16); Calcium 9.2 mg/dL (8.4-10.2); Carbon Dioxide 26 mmol/L (22-29); Chloride 109 mmol/L (96-108); Estimated Glomerular Filt Rate > 60; Potassium 3.9 mmol/L (3.3-5.1); Sodium 144 mmol/L (135-145); Total Protein 6.8 g/dL (6.5-8.0)
== END 2025-08-19 11:00 | disposition home or self-care (01) ==
LOC: HO.HKASLDS 10:59
PROVIDERS: PCP Internal Medicine; Visit Provider Student in an Organized Health Care Education/Training Program
DX: M05.79 Rheumatoid arthritis with rheumatoid factor of multiple sites without organ or systems involvement (principal)
CPT/HCPCS: 36415; 80053; 85025; 85652; 86140

== ENCOUNTER 2025-08-26 11:24 | Outpatient (AMB) | payer OTHER, SELFPAY ==
--- OUTSIDE RECORDS SUMMARY | 2024-12-01 10:00 | XMS_ITS ---
Author Organization [facility] Address [address] [place] [id number] Care Team Providers Care Web Development Instructor Name Role Phone NO, PCP Primary Care Provider [facility] Unavailable [phone] [facility] Unavailable [phone] REASON FOR VISIT Dental - Prophy only Medications Medication SIG (Take, Route, Fr equency, Duration) Notes Start Date End Date Status VALSARTAN Active PREDNISONE 10 mg 1 tab(s) orally once a day Active FAMOTIDINE Active METFORMIN Active LANTUS Active ATORVASTATIN Active FOLIC ACID Active NAPROXEN Active Encounters Encounter Location Date Provider Diagnosis [address] [address] 12/01/2024 [facility] Plan Of Treatment No Information Progress Notes * Yfn AVILADOB: (65 yo M)Acc No.[id number]:12/01/2024 Dental Notes Patient: Francisca BENÍTEZ Yfn BRASHER Provider: Chicho Antonio :1960 A ge:64 Y S ex:Male Date:12/01/2024 Address:[address] [place], [place] [id number] Pcp:PCP NO Subjective: * Chief Complaints: * [...] * Electronic signature of [facility] on 08/26/2025 at 01:03 PM EDT Sign off status: Pending * Provider: Chicho Antonio Date: 0 12/01/2024 Generated for Mounika cronin/Mauri/Arlene on: 1 01:03 PM EDT
--- OUTSIDE RECORDS SUMMARY | 2025-05-10 05:52 | XMS_ITS ---
Author Organization [facility] Address [address] [place] [phone] Care Team Providers Care Sampler And Test Preparer Name Role Phone NO, PCP Primary Care Provider [facility], [facility] Unavailable [phone] Alejandro Byers Unavailable [phone] REASON FOR VISIT appt Encounters Encounter Location Date Provider Diagnosis [address] [address] 05/10/2025 Alejandro Byers Plan Of Treatment No Information Progress Notes * Yfn SOTODOB: (65 yo M)Acc No.[id number]:05/10/2025 Patient: Francisca WINYfn HERNANDEZ :1960 A ge:64 Y S ex:Male Address:[address] [place] [address], [address] * * Date:
--- OUTSIDE RECORDS SUMMARY | 2025-07-09 17:00 | XMS_ITS ---
Author Organization [facility] Address [address] [place] [address] Care Team Providers Care Service Line Coordinator Name Role Phone NO, PCP Primary Care Provider [facility], [place] Unavailable [phone] Migration, Provider Unavailable Unavailable REASON FOR VISIT [...] Active Encounters Encounter Location Date Provider Diagnosis [facility] [address] [place] [address] 07/09/2025 Provider Migration Plan Of Treatment No Information Progress Notes * Yfn AVILADOB: (65 yo M)Acc No.[id number]:07/09/2025 Patient: Yfn STOVER Provider: :1960 A ge:65 Y S ex:Male Date:07/09/2025 Address:[address] [place], [place] [id number] Pcp:PCP NO Subjective: * Chief Complaints: * [...] Electronic signature of Prov ider Migration on 08/26/2025 at 01:04 PM EDT Sign off status: Pending * Provider: Date: 0 07/09/2025 Generated for Mounika cronin/Mauri/Arlene on: 01:04 PM EDT
--- NOTE | 2025-08-26 11:30 | A.OFFVIS_ITS ---
Vital Signs 08/26/25 11:35 Height 5 ft 10 in Weight 189 lb 6.033 oz BMI 27.2 BP 115/64 Blood Pressure Location Lt brachial Position Sitting Pulse 77 Pulse Source Pulse Oximeter Pulse Oximetry (%) 94 Oxygen Delivery Method Room Air Intake Visit Reasons: follow up Intake Note: Patient presents for RA follow up. Funds Transfer Clerk Required: Yes Funds Transfer Clerk Language: Belt Sander Stone Services: Funds Transfer Clerk Present Funds Transfer Clerk Name: [id number] Information Interpreted: non-clinical & clinical Allergies No Known Allergies Allergy (Verified 08/26/25 11:35) Medication List - Last Reconciled 08/26/25 by Margarita Villalobos MD amoxicillin-pot clavulanate 875-125 mg 1 tab PO BID atorvastatin 40 mg PO DAILY azithromycin 250 mg PO DAILY capsaicin 0.025% 1 appl topical BID diclofenac sodium 1% (Voltaren Arthritis Pain) 4 grams topical QID famotidine 40 mg PO DAILY folic acid 1 mg PO DAILY insulin glargine (Lantus U-100 Insulin) units subcut leflunomide 20 mg PO DAILY metformin 1,000 mg PO BID methotrexate sodium 20 mg (8 x 2.5 mg) PO QWEEK naproxen 500 mg PO BID 90 days omeprazole 40 mg PO BID prednisone 5 mg PO DAILY valsartan 80 mg PO DAILY HPI Comments Details: Patient is a 65-year-old male with hyperlipidemia, diabetes and hypertension who presents for follow up of seropositive rheumatoid arthritis Interval History: Patient last seen 04/22/25 with me. - On methotrexate 20 mg weekly, folic acid 1 mg daily, leflunomide 10 mg daily, Prednisone 5 mg - patient did not decrease his prednisone dose - went to the ER and got 20mg prednisone for 5 days - Injection helped the shoulders - Feels the Mtx and leflunomide is not enough - Low disease activity on the exam, no changes made to medications Today - On methotrexate 20 mg weekly, folic acid 1 mg daily, leflunomide 10 mg daily, Prednisone 5 mg - Also takes naproxen 500mg bid - Doing well - Complaining of bilateral upper extremity tiredness Rheumatologic History: Diagnosed approximately in 2019 ++RF ++CCP Initially started on methotrexate [id number]. But then patient was lost to follow up Patient reestablish care 02/2024 and methotrexate was restarted Current Rheumatology Medication(s): Methotrexate 20 mg weekly Folic acid 1 mg daily Leflunomide 10mg daily Prednisone 5 mg daily Naproxen 500mg bid [facility] Medical History Encounter for monitoring leflunomide therapy Osteoarthritis of acromioclavicular joints, bilateral Chronic joint pain Rheumatoid arthritis Type 2 diabetes mellitus Social History Alcohol intake: never Patient Tobacco Use Status: Former Tobacco user Current occupational status: unemployed Review of Systems Narrative Review of Systems Constitutional: Denies fever, chills, weight loss ENT: Denies vision changes, eye pain or eye redness, dental caries, dry mouth GI: Denies nausea, vomiting, diarrhea, abdominal pain, change in BM Pulm: Denies SOB, MURPHY, hemoptysis, wheezing Cards: Denies chest pain, palpitations Skin: Denies Raynaud's, rash, nail changes, photosensitivity, NITRATING ACID MIXER: Denies headaches, weakness, paresthesias, recurrent falls MSK: as per HPI All other systems reviewed and are unremarkable except noted above Physical Exam Exam Exam: Vital signs reviewed Physical Examination CONSTITUITIONAL Patient alert and cooperative. Well appearing and in no apparent painful distress MSK Hands * Right Hand: Able to make a fist. No swelling or tenderness to palpation of the MCPs, PIPs or DIPs. * Left Hand: Able to make a fist. No swelling or tenderness to palpation of the MCPs, PIPs or DIPs. * Herbedens nodes noted bilaterally Wrists * Right Wrist: Full ROM to flexion and extension. No swelling or TTP * Left Wrist: Full ROM to flexion and extension. No swelling or TTP Elbows * Right Elbow: Full ROM. No swelling or TTP. No TTP of the medial epicondyle. No TTP of the lateral epicondyle * Left Elbow: Full ROM. No swelling or TTP. No TTP of the medial epicondyle. No TTP of the lateral epicondyle Shoulders * Right shoulder: Full ROM. No swelling noted. No TTP of the AC joint. No TTP of the subacromial bursa. No TTP of the posterior shoulder * Left shoulder: Full ROM. No swelling noted. No TTP of the AC joint. No TTP of the subacromial bursa. No TTP of the posterior shoulder Knees * Right knee: Full ROM. No swelling noted. No TTP of the knee joint line. No TTP of pes anserine bursa * Left knee: Full ROM. No swelling noted. No TTP of the knee joint line. No TTP of pes anserine bursa. * Crepitations felt bilaterally Ankles * Right ankle: Good ankle dorsiflexion and plantar flexion. No swelling. No TTP of the ankle joint * Left ankle: Good ankle dorsiflexion and plantar flexion. No swelling. No TTP of the ankle joint Feet * Right foot: Negative squeeze test * Left foot: Negative squeeze test Tender points? * No tenderness to palpation of the bilateral trapezius, supraspinatus, anterior costochondral junctions, bilateral suboccipital muscle insertions SKIN No rashes Vital Signs: Last Vital Signs Pulse 77 08/26/25 11:35 BP 115/64 08/26/25 11:35 Pulse Ox 94 08/26/25 11:35 Oxygen Delivery Method Room Air 08/26/25 11:35 BMI result Body Mass Index 27.2 Results Reviewed Results Reviewed: Laboratory Tests 08/19/25 11:05 WBC 4.3 L RBC 3.98 L Hgb 12.5 L Hct 37.7 L Plt Count 194 ESR 7 Sodium 144 Potassium 3.9 Chloride 109 H Carbon Dioxide 26 BUN 11 Creatinine 0.77 AST 28 ALT 26 C-Reactive Protein 0.17 Assessment & Plan Assessment & Plan (1) Rheumatoid arthritis: Comment: ++RF CCp unknown dx approx 2020 MTX 2020 -2021. lost to f/u on PDN throughout MTX restarted 02/2024 effective Code(s): M06.9 - Rheumatoid arthritis, unspecified Category: Medical Qualifiers: Rheumatoid arthritis location: multiple sites Rheumatoid factor presence: with rheumatoid factor Qualified Code(s): M05.79 - Rheumatoid arthr itis with rheumatoid factor of multiple sites without organ or systems involvement Plan: #Seropositive non erosive RA Patient is a 65-year-old male with seropositive nonerosive rheumatoid arthritis that is currently in remission. Continue current regimen with plan to taper prednisone at next visit Plan - Leflunomide 20mg PO daily - Methotrexate 20mg weekly - Folic acid 1mg daily - Prednisone 5 mg daily - RTC 4 months - Labs before visit: CBC, CMP, ESR, CRP (2) Osteoarthritis of acromioclavicular joints, bilateral: Code(s): M19.011 - Primary osteoarthritis, right shoulder; M19.012 - Primary osteoarthritis, left shoulder Category: Medical Plan: #Bilateral shoulder OA Patient with tenderness to palpation of bilateral AC joints likely consistent with bilateral shoulder osteoarthritis. 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 Limit alcohol and avoid Bactrim ? Monitoring: ?CBC, BMP, LFTs every 3-4 months and hepatitis serologies as needed (4) Encounter for monitoring leflunomide therapy: Code(s): Z51.81 - Encounter for therapeutic drug level monitoring; Z79.69 - senior care (current) use of other immunomodulators and immunosuppressants Category: Medical Plan: #Long-term leflunomide Discussed with patient the benefits and risks of leflunomide for managing the rheumatic condition Benefits include: - Reduced pain, maintenance of remission and reduction of flares Risks include: - GI upset especially diarrhea, skin rash, cytopenias, hepatotoxicity, weight loss, neuropathy Initiation: ?CBC, BMP, LFTs, hepatitis-B and C serologies every 2-4 weeks for 3 months Monitoring: ?CBC, BMP, LFTs, hepatitis B and C serologies Plan I spent 30 minutes reviewing the record and labs, taking a history, examining the patient, discussing the treatment plan and documenting in the medical record Orders: Orders Complete Blood Count Auto Diff 4 Months Z79.899 - Other retirement (current) drug therapy Comprehensive Met. Panel 4 Months Z79.899 - Other retirement (current) drug therapy Erythrocyte Sedimentation Rate 4 Months Z79.899 - Other exterminator helper (current) drug therapy NE electromyogram (EMG) Today G56.93 - Unspecified mononeuropathy of bilateral upper limbs NE nerve conduction velocity Today G56.93 - Unspecified mononeuropathy of bilateral upper limbs C Reactive Protein 4 Months Z79.899 - Other exterminator helper (current) drug therapy Medications: Refilled methotrexate sodium 20 mg (8 x 2.5 mg) PO QWEEK 96 tabs 1RF naproxen 500 mg PO BID 180 tabs 1RF 90 days M19.011 - Primary osteoarthritis, right shoulder, M19.012 - Primary osteoarthritis, left shoulder leflunomide 20 mg PO DAILY 90 tabs 1RF M05.79 - Rheumatoid arthritis with rheumatoid factor of multiple sites without organ or systems involvement prednisone 5 mg PO DAILY 90 tabs 1RF M05.79 - Rheumatoid arthritis with rheumatoid factor of multiple sites without organ or systems involvement folic acid 1 mg PO DAILY 90 tabs 1RF Discontinued amoxicillin-pot clavulanate 875-125 mg Discontinued Reason: Patient no longer taking 1 tab PO BID 9 tabs 0RF azithromycin Discontinued Reason: Patient Completed Course 250 mg PO DAILY 4 tabs 0RF Coding Level of Care Code Est Pt Level 4 (07480) Complex EM visit Add On G2211 Diagnoses Rheumatoid arthritis involving multiple sites with positive rheumatoid factor M05.79 Rheumatoid arthritis location: multiple sites Rheumatoid factor presence: with rheumatoid factor Osteoarthritis of acromioclavicular joints, bilateral M19.011; 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
[2025-08-26 11:35] VITALS: BP 115/64; PULSE 77; O2SAT 94; BMI 27.2
--- OUTSIDE RECORDS SUMMARY | 2025-08-26 13:04 | XMS_ITS | Patient Health Record ---
Author Organization [facility] Address [address] [place] [address] Care Team Providers Care Associate Genetics Professor Name Role Phone NO, PCP Primary Care Provider [phone] [facility] Unavailable [phone] [facility] Unavailable [phone] Alejandro Byers Unavailable [phone] Migration, Provider Unavailable Unavailable Allergies No Known [...] Temperature 97.9 degrees Fahrenheit 08/04/2025 Lot # [id number] SEPTO LS Blood pressure diastolic 69 08/04/2025 Lot # [id number] SEPTO LS Blood pressure systolic 115 08/04/2025 Lot # [id number] SEPTO LS Encounters Encounter Location Date Provider Diagnosis Homeless [address] [place], [place] [id number] 08/05/2025 [facility] [address] [place] [address] 11/02/2024 [facility] [address] [place] [address] 05/12/2025 Alejandro Byers [facility] [address] [place] [phone] 2025 Alejandro Byers [facility] [address] [place] [phone] 08/04/2025 Alejandro Byers [facility] [address] [place] [address] 07/09/2025 Provider [facility] [address] [place] [phone] 05/10/2025 Alejandro Byers Plan Of Treatment No Information Insurance Providers Payer Name Payer Address Payer Phone Subscriber Number Group Number Insured Name Patient Relationship to Insured Coverage Start Date Coverage End Date [place] Medicaid Standard [address] [place] [address] [id number] Yfn Soto Self - patient is the insured [employer] [facility] [address] [place] [address] [id number] Yfn Soto Self - patient is the insured Medical (General) History Medical History History ICD Code Arthritis Diabetes Type 2
--- OUTSIDE RECORDS SUMMARY | 2025-08-26 13:04 | XMS_ITS | Clinical Summary ---
Author Organization [facility] Address [address] [place] [address] Phone Care Team Providers Care Glass Handler Name Role Phone Krysta Sarmiento MD Primary Care Provider [phone] Allergies No known active allergies Medications omeprazole [...] complication, without long-term current use of insulin ([facility] V24, [facility] V28) Take 1 tablet (1,000 mg total) [...] complication, without long-term current use of insulin ([facility] V24, [facility] V28) Inject 20 Units under the skin [...] 1 (one) time each day. 90 each 5 10/18/20 25 Active lancets (Wyleuch Delica Plus Lancet) 30 gaugeIndications: Type 2 diabetes mellitus without complications ([facility] V24, [facility] V28) Use as instructed 100 each 5 Active blood sugar diagnostic (FreeStyle Lite Strips) test stripIndications: Type 2 diabetes mellitus with other specified complication, without long-term current use of insulin ([facility] V24, [facility] V28) Use to check 2 times a day 100 each 3 5 Active blood-glucose,rec eiver,cont (FreeStyle Rogerio 3 [place]) miscIndications:T ype 2 diabetes mellitus with other specified complication, without long-term current use of insulin ([facility] V24, [facility] V28) 6 (six) times a day. 1 each 5 Active blood-glucose sensor (FreeStyle Rogerio 3 Plus Sensor) deviceIndications :Type 2 diabetes mellitus with other specified complication, without long-term current use of insulin ([facility] V24, [facility] V28) 1 kit 6 (six) times a day. 2 kit 5 Active Active Problems Problem Noted Date Diagnosed Date Mixed hyperlipidemia 04/21/2025 Primary hypertension 01/25/2025 Type 2 diabetes mellitus, wi thout long-term current use of insulin ([facility] V24, [facility] V28) 01/25/2025 Rheumatoid arthritis ([facility] V24, [facility] V28) 01/25/2025 Encounters Date Type Department Care Team Description 08/25/2025 Results Follow-Up Internal Medicine - [address] [place] [address] Ayesha Reyes MD 06/29/2025 10:45 AM EDT Office Visit Internal Medicine [facility] 175 [facility] [address] [place] [address] Krysta Sarmiento MD Hospital discharge follow-up (Primary Dx); Type 2 diabetes mellitus with other specified complication, without long-term current use of insulin ([facility] V24, [facility] V28); Primary hypertension; Rheumatoid arthritis involving multiple sites, unspecified whether rheumatoid factor present ([facility] V24, [facility] V28); Mixed hyperlipidemia 06/23/2025 11:00 AM EDT Office Visit Endocrinology [address] [address] Laury Salazar PA Type 2 diabetes mellitus with other specified complication, without long-term current use of insulin ([facility] V24, [facility] V28) (Primary Dx); Primary hypertension; Mixed hyperlipidemia 06/17/2025 Telephone Internal Medicine - [place] [address] [phone] Ngoc Chase [place] from Last 3 Months Medical History Medical History Date Comments Seropositive rheumatoid arth ritis ([facility] V24, [facility] V28) 06/27/2021 DX:Seropositive rheumatoid arthritis (HCC) Diabetes mellitus ([facility] V 24, [facility] V28) 06/27/2021 DX:Diabetes mellitus (HCC) Social History [...] 2:00 PM EST Office Visit Endocrinology - [place] [address] [place] [address] Laury Salazar PA [address] [place] [address] Health Maintenance Due Date Last Done Comments [...] Procedure Name Priority Date/Time Associated Diagnosis Comments EXTERNAL CLINICAL LAB 08/19/2025 HEMOGLOBIN A1C Routine 06/23/2025 12:18 PM EDT Type 2 diabetes mellitus with other specified complication, without long-term current use of insulin ([facility] V24, [facility] V28) BASIC METABOLIC PANEL Routine 06/23/2025 12:17 PM EDT Type 2 diabetes mellitus with other specified complication, without long-term current use of insulin ([facility] V24, [facility] V28) POC GLUCOSE Routine 06/23/2025 10:58 AM EDT Type 2 diabetes mellitus with other specified complication, without long-term current use of insulin ([facility] V24, [facility] V28) EXTERNAL XRAY REPORT 06/15/2025 MICROALBUMIN CREATININE URINE RATIO Routine 03/11/2025 8:53 AM EDT Type 2 diabetes mellitus with other specified complication, without long-term current use of insulin ([facility] V24, [facility] V28) LIPID PANEL WITH REFLEX TO DIRECT LDL Routine 03/11/2025 8:53 AM EDT Type 2 diabetes mellitus, without long-term current use of insulin ([facility] V24, [facility] V28) Primary hypertension Lipid screening from Last 3 Months or Most Recently Relevant to Health Maintenance Results * External clinical lab (08/19/2025) us Provider [facility] LAB BLOOD ORDERABLES Fin al Result * (ABNORMAL) Hemoglobin A1c (06/23/2025 12:18 PM EDT) Pathologist [facility] [place] Hemoglobin A1C 7.7(H) <6.5 % LAB CHEMISTRY METHOD 06/23/2025 6:31 PM EDT [facility] Mean Bld Glu Estim. 174 mg/dL LAB CHEMISTRY METHOD 06/23/2025 6:31 PM EDT [facility] Blood Venous blood specimen / Unknown Venipuncture / Unknown 06/23/2025 12:18 PM EDT 06/23/2025 12:18 PM EDT Laury SAUER LAB BLOOD ORDERABLES Final Result [facility] [address] [place] [address], [place] [phone] * (ABNORMAL) Basic metabolic panel (06/23/2025 12:17 PM EDT) Pathologist [facility] [place] Sodium 139 133 - 145 mmol/L LAB CHEMISTRY METHOD 06/23/2025 5:14 PM EDT [facility] Potassium 4.6 3.5 - 5.5 mmol/L LAB CHEMISTRY METHOD 06/23/2025 5:14 PM EDT [facility] Chloride 107 96 - 110 mmol/L LAB CHEMISTRY METHOD 06/23/2025 5:14 PM EDT [facility] CO2 27 21 - 32 mmol/L LAB CHEMISTRY METHOD [facility] Anion Gap 5 3 - 11 LAB CHEMISTRY METHOD 06/23/2025 5:14 PM EDT [facility] Glucose 211(H) 70 - 100 mg/dL LAB CHEMISTRY METHOD 06/23/2025 5:14 PM EDT [facility] BUN 9 5 - 25 mg/dL LAB CHEMISTRY METHOD 06/23/2025 5:14 PM EDT [facility] Creatinine 0.85 0.70 - 1.30 mg/dL LAB CHEMISTRY METHOD 06/23/2025 5:14 PM EDT [facility] eGFR 97 >=60 mL/min/1. 73m2 LAB CHEMISTRY METHOD 06/23/2025 5:14 PM T [facility] Comment:Calculation based on the Chronic Kidney Disease Epidemiology Collaboration (CKD-EPI) equation refit without adjustment for race. BUN/Creatinine Ratio 10.6 LAB CHEMISTRY METHOD 06/23/2025 5:14 PM [facility] Calcium 8.6 8.5 - 10.5 mg/dL LAB CHEMISTRY METHOD 06/23/2025 5:14 PM EDT [facility] Blood Venous blood specimen / Unknown Venipuncture / Unknown 06/23/2025 12:17 PM EDT 06/23/2025 12:17 PM EDT us Laury SAUER LAB BLOOD ORDERABLES Final Result [facility] [address] [place] [address], [place] [phone] * POC glucose manually resulted (06/23/2025 10:58 [...] LAB CHEMISTRY METHOD 03/11/2025 1:10 PM EDT [facility] Triglycerides 57 0 - 150 mg/dL LAB CHEMISTRY METHOD 03/11/2025 1:10 PM EDT [facility] HDL 79 >=40 mg/dL LAB CHEMISTRY METHOD 03/11/2025 1:10 PM EDT [facility] LDL Calculated 28 0 - 100 mg/dL LAB CHEMISTRY METHOD 03/11/2025 1:10 PM EDT [facility] VLDL Cholesterol Lane 11.4 mg/dL LAB CHEMISTRY METHOD 03/11/2025 1:10 PM EDT [facility] Non HDL Chol. (LDL+VLDL) 39 <145 mg/dL LAB CHEMISTRY METHOD 03/11/2025 1:10 PM EDT [facility] Chol/HDL Ratio 1.5 0.0 - 4.4 LAB CHEMISTRY METHOD 03/11/2025 1:10 PM EDT [facility] Blood Venous blood specimen / Unknown Venipuncture / Unknown 03/11/2025 8:53 AM EDT 03/11/2025 8:53 AM EDT Azeb Garrido MD LAB BLOOD ORDERABLES Final Resul t [facility] [address] [place] [address], [place] [phone] * Microalbumin creatinine urine ratio (03/11/2025 8:53 AM EDT) Creatinine, Urine 162.0 mg/dL LAB CHEMISTRY METHOD 03/11/2025 12:08 PM EDT [facility] Microalb, Ur 13.1 0.0 - 29.0 mg/L LAB CHEMISTRY METHOD 03/11/2025 12:08 PM EDT [facility] Microalb/Creat Ratio 8 <30 mg/g creat LAB CHEMISTRY METHOD 03/11/2025 12:08 PM EDT [facility] Urine Urine specimen obtained by clean catch procedure / Unknown Non-blood Collection / Unknown 03/11/2025 8:53 AM EDT 03/11/2025 8:53 AM EDT us Azeb Garrido MD LAB URINE ORDERABLES Final Resul t [facility] [address] [place] [address], from Last 3 Months or Most Recently Relevant to Health Maintenance Insurance [facility] Care Teams Glass Handler Relationship Specialty Start Date End Date Krysta Sarmiento MD [address] [phone] PCP - General 09/10/23
--- OUTSIDE RECORDS SUMMARY | 2025-08-26 13:04 | XMS_ITS | Encounter Summary ---
Author Organization [facility] Address [address] [place] [address] Care Team Providers Care Professional Volleyball Player Name Role Phone Krysta Sarmiento MD Primary Care Provider [phone] Encounter Details Date Type Department Care Team (Late Contact Info) Description 08/25/2025 Results Follow-Up Internal Medicine - [place] 175 [facility] [address] [place] [phone] Ayesha Reyes MD [address] [place] [address] Social History Tobacco Use Types Packs/Day Years [...] PM EST documented as of this encounter Plan of Treatment Upcoming Encounters Date Type Department Care Team (Late Contact Info) Description 10/12/2025 2:00 PM EST Office Visit Endocrinology [address] [address] Laury Salazar PA [address] [place] [address] documented as of this encounter Visit Diagnoses Not on filedocumented in this encounter Care Teams Professional Volleyball Player Relationship Specialty Start Date End Date Krysta Sarimento MD [address] [place] [phone] PCP - General 09/10/23 documented as of this encounter
== END 2025-08-26 12:28 | disposition home or self-care (01) ==
LOC: HO.RHES 11:25
PROVIDERS: PCP Internal Medicine; Visit Provider Student in an Organized Health Care Education/Training Program
DX: M05.79 Rheumatoid arthritis with rheumatoid factor of multiple sites without organ or systems involvement (principal); M19.011 Primary osteoarthritis, right shoulder; M19.012 Primary osteoarthritis, left shoulder; Z79.631 Long term (current) use of antimetabolite agent; Z51.81 Encounter for therapeutic drug level monitoring; Z79.69 Long term (current) use of other immunomodulators and immunosuppressants
CPT/HCPCS: 99214

== ENCOUNTER → 2025-08-26 11:24 | Outpatient (BNVA) | payer OTHER, SELFPAY | PROVIDERS: PCP Internal Medicine; Visit Provider Student in an Organized Health Care Education/Training Program | DX: M05.79 Rheumatoid arthritis with rheumatoid factor of multiple sites without organ or systems involvement (principal); M19.011 Primary osteoarthritis, right shoulder; M19.012 Primary osteoarthritis, left shoulder; Z79.631 Long term (current) use of antimetabolite agent; Z51.81 Encounter for therapeutic drug level monitoring; Z79.69 Long term (current) use of other immunomodulators and immunosuppressants | CPT/HCPCS: 99212 ==